=== PATIENT | male | born 1960 | race Caucasian/White ===

== ENCOUNTER 2020-02-12 06:53 | Day surgery (SDC) | payer MEDICARE, SELFPAY ==
[2020-02-12] VITALS (14 sets, daily range): BP systolic 71–161; BP diastolic 43–93; PULSE 63–92; RESP 10–18; TEMP 36.4–36.9; O2SAT 96–100; BMI 30.2
--- NOTE | 2020-02-12 | SCC_ITS ---
Procedure Done: Cystoscopy, left retrograde ureteropyelogram, left ureteroscopy with manual lithotripsy of stone, stent 10.9 seconds of fluoroscopic guidance, for a cumulative dose of 5.56 mGy, was provided to Dr. Pinon by the radiology department. C-arm images of the abdomen were saved for the patient's permanent record. [facility]
--- NOTE | 2020-02-12 07:13 | CT_ITS ---
WS: [id number] CT scan of the abdomen and pelvis without Oral and IV contrast. Additional two-dimensional coronal an d sagittal reconstruction was performed. 02/12/2020 Clinical Data: L back/groin pain Comparison: None. DLP: 1995.[address] scans at [facility] use at least one of these dose optimization techniques: automat ed exposure control; mA and/or kV adjustment per patient size (includes targeted exams where dose is matched to clinical indication); or iterative reconstruction. Findings: The lower lungs show no nodules, masses or effusions. There is coronary artery calcification. The gallbladder, spleen, adrenal glands and pancreas are normal. There is hepatomegaly but no liver c yst, mass or dilated intrahepatic ducts.. The right kidney shows no cysts, masses, hydronephrosis or renal calculi. The left kidney demonstrate s mild pyelocaliectasis with a 2.8 cm cyst inferiorly. The kidneys are joined across the midline infe riorly. No left renal mass or calculus can be seen.. The abdominal aorta is normal in size with calcification in the wall. No appendicitis or diverticulitis is seen. The stomach, small bowel and colon show no abnormalities. No abscess, adenopathy, ascites, mass, obstruction or free air is seen. The bladder is is dilated and there is a 0.6 cm left UVJ calculus. There are bilateral fat-containing inguinal hernias.. The bones of the lower thorax, lumbar spine, pelvis, and hips show osteoarthritis of the lower thorac ic and the lower lumbar vertebral bodies.. CT/CT kidney stone [id number] Impression: 1. 0.6 cm left UVJ calculus. 2. Horseshoe kidney. 3. Hepatomegaly
--- NOTE | 2020-02-12 07:14 | ED_ITS ---
HPI - Back Pain/Injury General: Chief Complaint: Back Pain/Injury Stated Complaint: LOWER BACK , GROIN PAIN Time Seen by Provider: 02/12/20 07:05 Source: patient Mode of arrival: ambulatory Limitations: no limitations History of Present Illness: HPI Narrative: Patient is a 59-year-old male who presents to ED today with complaints of left-sided back pain and groin pain that began fairly abruptly around midnight last night. Patient states pain seems to start in his groin and radiate around into his back. He states he cannot sit still due to his discomfort. He is having nausea and vomiting secondary to the pain. Patient states he has never had anything like this previously. Denies history of back pains. He is not having any difficulty with urination, dysuria, hematuria. He has not noticed any masses or bulges in his groin. He denies any redness, swelling, pallor, or coolness to his lower extremities. MD elicited complaint: back pain Onset (ago): hour(s) Timing: constant Severity: severe Similar Symptoms Previously: No Location: left lower back Radiation: groin Relieving factors: none Associated symptoms: Reports nausea and vomiting; Deny chills, change in bowel habits, dysuria, fatigue, fever(s), hematuria, syncope or urinary urgency Review of Systems Const: Denies: fever, chills, body aches, change in appetite, change in weight or fatigue Card: Denies: chest pain, palpitations, irregular heart rhythm, edema, lightheadedness, syncope or pre-syncope Resp: Denies: shortness of breath, productive cough or chest congestion GI: Reports: nausea and vomiting; Denies: vomiting blood, heartburn/indigestion, change in bowel habits, painful bowel movements, rectal swelling, change in stool character, blood in stool, white/light colored stool or fatty stool : Reports: other (L groin pain ); Denies: flank pain, difficulty urinating, painful urination, urinary frequency, urinary urgency, urinary hesitancy, blood in urine, genital pain, genital lesion, testicular mass or scrotal swelling Musc: Reports: back pain; Denies: neck pain, extremity pain, extremity swelling, joint pain or joint swelling Skin/Breast: Denies: rash Neuro: Denies: headache, numbness in extremities, weakness in extremities or changes in sensation PFSH ED PFSH: Social History Smoking and tobacco status: never smoked Physical Exam Const: COMMON NORMALS: average body habitus, oriented x3, no limitations, healthy appearing, alert and well nourished GENERAL APPEARANCE: in distress (secondary to pain) OTHER: pt pacing around the room-reports he cannot sit still secondary to pain HENMT: COMMON NORMALS: normocephalic and head/scalp atraumatic HEAD & SCALP: normocephalic and atraumatic Resp: COMMON NORMALS: normal respiratory effort and clear to auscultation bilaterally AUSCULTATION: clear to auscultation bilaterally Cardio: COMMON NORMALS: regular rate and regular rhythm RATE: regular rate RHYTHM: regular rhythm GI: COMMON NORMALS: normal to inspection, nondistended, normoactive bowel sounds, soft to palpation, no hepatosplenomegaly and no masses PALPATION: Yes soft, Yes tender (superior to L inguinal) and Yes no hepatosplenomegaly : COMMON NORMALS: Yes no CVA tenderness BLADDER/KIDNEY EXAM: Yes no CVA tenderness Back/Pelvis: COMMON NORMALS: no CVA tenderness OTHER: TTP L lower back radiating around into groin Extremity: COMMON NORMALS: normal to inspection Neuro: COMMON NORMALS: oriented x3 SENSORIUM/ORIENTATION: Yes alert Skin: COMMON NORMALS: no rashes or lesions noted GENERAL SKIN EXAM: no rashes or lesions noted Course Consultations: Consultation #1: Dr. Pinon-recommends we send pt to outpt services and he will intervene from there. States he will place orders for patient. Vital Signs: Vital signs: Vital Signs Temperature 97.5 F L 02/12/20 06:58 Pulse Rate 92 02/12/20 06:58 Respiratory Rate 16 02/12/20 10:03 Blood Pressure 161/93 02/12/20 06:58 Pulse Oximetry 100 02/12/20 10:03 MDM - Back Pain/Injury MDM Narrative: Medical decision making narrative: Patient presents here with a 6 mm stone in his left UVJ. Patient has some mild renal dilatation. He has a WBC count of 17.6 however urine is not infected. I cannot get patient's pain u nder control even with morphine, fentanyl, toradol, and dilaudid. Spoke to Dr. Pinon and we will admit patient to outpatient services where he will intervene due to uncontrollable pain. Lab Data: Labs: Lab Results 02/12/20 02/12/20 02/12/20 Range/Units 07:13 07:13 09:22 WBC 17.8 H (4.0-10.0) 10^3/ uL RBC 5.18 (4.1-5.3) 10^6/u L Hgb 14.8 (11.7-16.6) g/dL Hct 44.7 (42.0-52.0) % MCV 86.3 (80-94) fL MCH 28.6 (28.0-34.0) pg MCHC 33.1 (30.0-36.0) g/dL RDW 13.1 (12.1-15.1) % Plt Count 422 H (130-400) 10^3/c mm MPV 9.5 (7.4-10.4) fL Neut % (Auto) 79.4 % Lymph % (Auto) 12.9 % [place] % (Auto) 4.7 % Eos % (Auto) 1.9 % Baso % (Auto) 0.7 % Neut # (Auto) 14.2 H (1.8-7.7) 10^3/u L Lymph # (Auto) 2.3 (0.8-4.8) 10^3/u L [place] # (Auto) 0.8 (0.2-0.9) 10^3/u L Eos # (Auto) 0.3 (0.0-0.8) 10^3/u L Baso # (Auto) 0.1 (0.0-0.1) 10^3/u L Nucleated RBC % (a uto) 0 % Nucleated RBCs # 0.0 /100WBC Sodium 137 (136-145) mmol/L Potassium 4.6 (3.5-5.1) mmol/L Chloride 102 (98-107) mmol/L Carbon Dioxide 22 (22-29) mmol/L Anion Gap 17.6 (5-19) BUN 23 (8-23) mg/dL Creatinine 1.6 H (0.7-1.2) mg/dL GFR Calculation 44.2 L (90-130) mL/min Glucose 331 H (65-115) mg/dL Calculated Osmolal ity 294 (285-295) mOsm/k g Calcium 9.6 (8.5-10.5) mg/dL Total Bilirubin 0.4 (0.15-1.2) mg/dL AST 18 (0-40) U/L ALT 24 (0-41) U/L Alkaline Phosphata se 146 H (40-130) IU/L Total Protein 7.7 (6.6-8.7) g/dL Albumin 4.8 (3.5-5.2) g/dL Globulin 2.9 (1.3-4.6) g/dL Urine Color Yellow (Yellow) Urine Appearance Clear (CLEAR) Urine pH 5 (5-7) Ur Specific Gravit y 1.015 (1.005-1.030) Urine Protein Neg (Negative) Urine Glucose (UA) 4+ H (Normal) Urine Ketones Negative (Negative) Urine Blood 2+ H (Negative) Urine Nitrate Negative (Negative) Urine Bilirubin Neg (NEGATIVE) Urine Urobilinogen Norm (Negative) mg/dL Ur Leukocyte [place] ase Negative (Negative) Urine RBC 5-10 H (0-2) /hpf Urine WBC None (0-5) /hpf Ur Squamous Epith Cells None (0-5) Urine Bacteria None (NONE) Imaging Data^: CT Abd/Pel: Radiologist's impression: [place] [address] CT Scan Report Signed Patient: Garth Henriquez Unit #: [id number] : 1960 Age/Sex: 59 / M ADM Date: 02/12/20 Loc: ER Room/Bed: Attending Dr: Ordering Provider/Ordering MD: Daiana Yu Date of Service: 02/12/20 Procedure(s): CT kidney stone [id number] Accession Number(s): [id number] Report Number: [id number] WS: [id number] CT scan of the abdomen and pelvis without Oral and IV contrast. Additional two- dimensional coronal and sagittal reconstruction was performed. 02/12/2020 Clinical Data: L back/groin pain Comparison: None. DLP: 1994. mGy.cm All CT scans at [facility] use at least one of these dose optimization techniques: automated exposure control; mA and/or kV adjustment per patient size (includes targeted exams where dose is matched to clinical indication); or iterative reconstruction. Findings: The lower lungs show no nodules, masses or effusions. There is coronary artery calcification. The gallbladder, spleen, adrenal glands and pancreas are normal. There is hepatomegaly but no liver cyst, mass or dilated intrahepatic ducts.. The right kidney shows no cysts, masses, hydronephrosis or renal calculi. The left kidney demonstrates mild pyelocaliectasis with a 2.8 cm cyst inferiorly. The kidneys are joined across the midline inferiorly. No left renal mass or calculus can be seen.. The abdominal aorta is normal in size with calcification in the wall. No appendicitis or diverticulitis is seen. The stomach, small bowel and colon show no abnormalities. No abscess, adenopathy, ascites, mass, obstruction or free air is seen. The bladder is is dilated and there is a 0.6 cm left UVJ calculus. There are bilateral fat- containing inguinal hernias.. The bones of the lower thorax, lumbar spine, pelvis, and hips show osteoarthritis of the lower thoracic and the lower lumbar vertebral bodies.. CT/CT kidney stone [id number] Impression: 1. 0.6 cm left UVJ calculus. 2. Horseshoe kidney. 3. Hepatomegaly Dictated By: Gudelia Watkins MD Signed By: Gudelia Watkins MD Signed Date/Time: 02/12/20838 DD/ 8 Discharge Plan Discharge Patient Disposition: Admitted As Inpatient Clinical Impression: Calculus of ureterovesical junction (UVJ), Uncontrolled pain Condition: Stable Referrals: Tejas Wu DO [Family Provider] - Coding Level of Care Code ED Spring Forger for Chg Fwd Exam Comprehensive
[2020-02-12 07:18] LABS: Basophils # 0.1 10^3/uL (0.0-0.1); Basophils % 0.7 %; Eosinophils # 0.3 10^3/uL (0.0-0.8); Eosinophils % 1.9 %; Hematocrit 44.7 % (42.0-52.0); Hemoglobin 14.8 g/dL (11.7-16.6); Lymphocytes # 2.3 10^3/uL (0.8-4.8); Lymphocytes % 12.9 %; Mean Corpuscular HGB Conc 33.1 g/dL (30.0-36.0); Mean Corpuscular Hemoglobin 28.6 pg (28.0-34.0); Mean Corpuscular Volume 86.3 fL (80-94); Mean Platelet Volume 9.5 fL (7.4-10.4); Monocytes # 0.8 10^3/uL (0.2-0.9); Monocytes % 4.7 %; Neutrophils # 14.2 10^3/uL (1.8-7.7); Neutrophils % 79.4 %; Nucleated Red Blood Cells % 0 %; Platelet Count 422 10^3/cmm (130-400); Red Blood Count 5.18 10^6/uL (4.1-5.3); Red Cell Distribution Width 13.1 % (12.1-15.1); White Blood Count 17.8 10^3/uL (4.0-10.0)
[2020-02-12] MEDS: morphine 4 mg/mL SDV 1 mL IVP (07:18)
[2020-02-12] MEDS: ondansetron 2 mg/ML SDV 2 mL 4 MG IVP (07:19)
[2020-02-12] MEDS: sodium chloride 0.9% 1,000 ML 999 ML IV (07:19)
--- NOTE | 2020-02-12 07:20 | PC.NURSE ---
Patient to CT via stretcher
[2020-02-12] MEDS: ketorolac 30 mg/mL INJ IVP (07:33)
[2020-02-12 07:34] LABS: Alanine Aminotransferase 24 U/L (0-41); Albumin Level 4.8 g/dL (3.5-5.2); Alkaline Phosphatase 146 IU/L (40-130); Anion Gap 17.6 (5-19); Aspartate Amino Transferase 18 U/L (0-40); Blood Urea Nitrogen 23 mg/dL (8-23); Calcium 9.6 mg/dL (8.5-10.5); Carbon Dioxide 22 mmol/L (22-29); Chloride 102 mmol/L (98-107); Globulin 2.9 g/dL (1.3-4.6); Glomerular Filtration Rate 44.2 mL/min (90-130); Glucose 331 mg/dL (65-115); Osmolality Calculated 294 mOsm/kg (285-295); Potassium 4.6 mmol/L (3.5-5.1); Sodium 137 mmol/L (136-145); Total Bilirubin 0.4 mg/dL (0.15-1.2); Total Protein 7.7 g/dL (6.6-8.7)
--- NOTE | 2020-02-12 07:36 | PC.NURSE ---
Patient back from CT. Patient unable to lay flat for scan.
--- NOTE | 2020-02-12 07:38 | PC.NURSE ---
Call light activated minutes after administration of toradol. Patient concerned that it is not helping. Patient advised to allow time for medication to work.
[2020-02-12] MEDS: fentaNYL 50 mcg/mL INJ 2mL 75 MCG IVP (07:48)
--- NOTE | 2020-02-12 08:10 | PC.NURSE ---
Patient has return from CT after successfully receiving the scan
[2020-02-12] MEDS: fentaNYL 50 mcg/mL INJ 2mL IVP (09:00)
[2020-02-12 09:43] LABS: Add Urine Microscopic? YES; Bilirubin Urine Neg (NEGATIVE); Blood Urine 2+ (Negative); Glucose Urine UA 4+ (Normal); Ketones Urine Negative (Negative); Leukocyte Esterase Urine Negative (Negative); Nitrate Urine Negative (Negative); Protein Urine Neg (Negative); Specific Gravity, Urine 1.015 (1.005-1.030); Urine Appearance Clear (CLEAR); Urine Color Yellow (Yellow); Urobilinogen Urine Norm (Negative); pH Urine 5 (5-7)
[2020-02-12 09:44] LABS: Add Urine Culture? No
[2020-02-12] MEDS: HYDROmorphone 1 mg/mL INJ 1 mL 0.5 MG IVP (10:03)
[2020-02-12 11:03] LABS: Lactate (Lactic Acid level) 1.5 mmol/L (0.5-2.2)
--- NOTE | 2020-02-12 11:04 | P.HP_ITS ---
Providers/Chief Complaint Chief Complaint: LOWER BACK , GROIN PAIN History of Present Illness Garth Henriquez is a 59 year old male who presented to the emergency department today with renal colicky symptoms on the left beginning last night abruptly at about midnight. Denies fever or chills. Did have severe nausea and vomiting. No concurrent lower urinary tract symptoms. Pain was described as very severe and difficult to control despite a significant amount of narcotics in the emergency department. No prior stone Work-up: UA positive for microscopic hematuria but no white cells. White count was 17,000. Vital signs were stable. CT scan showed an obstructing stone 6 mm in his left distal ureter near the UVJ. Coincidental finding of horseshoe kidney. Based on the size and location of the stone it was felt that he could be potentially managed as outpatient but his pain cannot be adequately controlled. He was offered the option for further conservative management on an inpatient basis or intervention with endoscopy regarding the stone and chose the latter. Review of Systems Const: Denies: fever, chills, body aches or fatigue Eyes: Denies: change in vision or blurry vision ENMT: Denies: throat pain or painful swallowing Card: Denies: chest pain or palpitations Resp: Denies: shortness of breath, productive cough or non-productive cough GI: Reports: abdominal pain and vomiting; Denies: vomiting blood : Reports: flank pain and painful urination Musc: Reports: joint pain Skin/Breast: Denies: rash or redness Neuro: Denies: confusion or behavioral changes Psych: Denies: anxiety or depression Endo: Denies: excessive urination Chris/Lymph: Denies: easy bruising or easy bleeding All/Imm: Reports: hives; Denies: acute wheezing Medications/Allergies Home Medications Medication Instructions Recorded Confirmed Last Taken Type atorvastatin 40 mg PO DAILY 02/12/20 02/12/20 02/11/20 History glipizide 10 mg PO DAILY 02/12/20 02/12/20 02/11/20 History lisinopril 5 mg PO DAILY 02/12/20 02/12/20 02/11/20 History metformin 1,000 mg PO BID 02/12/20 02/12/20 02/11/20 History Allergies Allergy/AdvReac Type Severity Reaction Status Date / Time adhesive AdvReac Unknown Verified 02/12/20 07:26 PFSH PFSH: Medical History Diabetes mellitus Hypertension Surgical History H/O neck surgery H/O repair of rotator cuff History of ankle surgery History of surgery on arm Social History Smoking and tobacco status: never smoked Vital Signs Vitals Signs: Last Vital Signs Temp 97.5 F L 02/12/20 06:58 Pulse 75 02/12/20 10:54 Resp 16 02/12/20 10:54 BP 126/75 02/12/20 10:54 Pulse Ox 98 02/12/20 10:54 Weight: Weight last 48 hrs Weight 211 lb 2.806 oz Physical Exam Const: COMMON NORMALS: oriented x3 EXAM LIMITATIONS: no altered mental status and no behavioral limitations GENERAL APPEARANCE: well kempt and well developed ORIENTATION/CONSCIOUSNESS: not confused HENMT: HEAD & SCALP: normocephalic and atraumatic Eye: COMMON NORMALS: no scleral icterus CONJUNCTIVA: Yes conjunctivae normal Neck/C-Spine: GENERAL: Yes normal visual inspection Resp: COMMON NORMALS: normal respiratory effort EFFORT & INSPECTION: No labored and No actively coughing : OTHER: Normal genitourinary exam Extremity: COMMON NORMALS: no clubbing, cyanosis or edema Neuro: COMMON NORMALS: no focal motor deficits SENSORIUM/ORIENTATION: Yes alert Psych: COMMON NORMALS: mental status grossly normal, thought process normal and cooperative APPEARANCE: Yes grossly normal and Yes well kempt ATTITUDE: Yes calm and Yes engaged THOUGHT PROCESS: normal thought process Skin: COMMON NORMALS: no jaundice Data Micro: Micro: Microbiology 02/12/20 10:30 Blood Culture - Pr eliminary Blood SPECIMEN [facility] RANJAN 02/12/20 10:35 Blood Culture - Pr eliminary Blood SPECIMEN [facility] RANJAN A&P Assessment and plan (1) Calculus of ureterovesical junction (UVJ): 6 mm left UVJ stone with obstructive changes and refractory symptoms. Elected intervention. Informed consent obtained for cystoscopy, LEFT: Retrograde, ureteroscopy, laser, stent I explained the procedure in details with benefits risk potential complications alternatives explained. Status: Acute Code(s): N20.1 - Calculus of ureter (2) Uncontrolled pain: Status: Acute Code(s): R52 - Pain, unspecified Coding Level of Care Code [facility] for g Fwd Exam Comprehensive Diagnoses Calculus of ureterovesical junction (UVJ) N20.1 Uncontrolled pain R52
--- NOTE | 2020-02-12 11:38 | P.ANESASSM_ITS ---
Pre-Anesthetic Assessment Pre-Anesthetic Assessment: Height/Weight: Height 1.78 m Weight 95.788 kg Temp Pulse Resp BP Pulse Ox 98.2 F 86 18 108/57 97 02/12/20 11:17 02/12/20 11:17 02/12/20 11:17 02/12/20 11:17 02/12/20 11:17 Preop Diagnosis: left ureteral stone Proposed Procedure: Operation Date: 02/12/20 14:35 Proposed Procedures p Cystoscopy(Not Applicable) - Saqib Pinon MD s Retrograde Pyelogram(Left) - Saqib Pinon MD s Flexible Ureteroscopy(Not Applicable) - Saqib Pinon MD s Laser Lithotripsy(Left) - MD whit Cortez Ureteral Stent Placement(Left) - Saqib Pinon MD Last intake: Intake Last Liquid Date 02/12/20 Last Liquid Time 02:00 Last Solid Date 02/11/20 Last Solid Time 19:00 Exam: Pre-Anes Outpt Exam: alert, oriented x 3, clear to auscultation bilaterally and regular rate & rhythm Airway: Submandibular: WNL Cervical ROM: Other MP: 2 Additional comments: very poor dention CV/HEM: CV/HEM: HTN Comments: rx'd x 10y 2 blocks/2FOS without angina/PERDOMO stress test'05 negative : Comments: left ureteral stone Metabolic: Metabolic: DM Comments: dx'd 18y, does not follow Musc/skel: Musc/skel: Lower Back Pain Neuropsych: Neuropsych: ULRICH Anesthetic Plan: ASA status: 3 Anesthesia: General PFSH Anesthesia PFSH: Social History Smoking and tobacco status: never smoked Data Anesthesia CBC & Chem 7: 02/12/20 07:13 02/12/20 07:13 Other Labs: Laboratory Results - last 48 hr 02/12/20 02/12/20 02/12/20 07:13 07:13 09:22 WBC 17.8 H RBC 5.18 Hgb 14.8 Hct 44.7 MCV 86.3 MCH 28.6 MCHC 33.1 RDW 13.1 Plt Count 422 H MPV 9.5 Neut % (Auto) 79.4 Lymph % (Auto) 12.9 [place] % (Auto) 4.7 Eos % (Auto) 1.9 Baso % (Auto) 0.7 Neut # (Auto) 14.2 H Lymph # (Auto) 2.3 [place] # (Auto) 0.8 Eos # (Auto) 0.3 Baso # (Auto) 0.1 Nucleated RBC % (auto) 0 Nucleated RBCs # 0.0 Sodium 137 Potassium 4.6 Chloride 102 Carbon Dioxide 22 Anion Gap 17.6 BUN 23 Creatinine 1.6 H GFR Calculation 44.2 L Glucose 331 H Calculated Osmolality 294 Lactate Calcium 9.6 Total Bilirubin 0.4 AST 18 ALT 24 Alkaline Phosphatase 146 H Total Protein 7.7 Albumin 4.8 Globulin 2.9 Urine Color Yellow Urine Appearance Clear Urine pH 5 Ur Specific [place] 1.015 Urine Protein Neg Urine Glucose (UA) 4+ H Urine Ketones Negative Urine Blood 2+ H Urine Nitrate Negative Urine Bilirubin Neg Urine Urobilinogen Norm Ur Leukocyte Esterase Negative Urine RBC 5-10 H Urine WBC None Ur Squamous Epith Cells None Urine Bacteria None 02/12/20 10:35 WBC RBC Hgb Hct MCV MCH MCHC RDW Plt Count MPV Neut % (Auto) Lymph % (Auto) [place] % (Auto) Eos % (Auto) Baso % (Auto) Neut # (Auto) Lymph # (Auto) [place] # (Auto) Eos # (Auto) Baso # (Auto) Nucleated RBC % (auto) Nucleated RBCs # Sodium Potassium Chloride Carbon Dioxide Anion Gap BUN Creatinine GFR Calculation Glucose Calculated Osmolality Lactate 1.5 Calcium Total Bilirubin AST ALT Alkaline Phosphatase Total Protein Albumin Globulin Urine Color Urine Appearance Urine pH Ur Specific [place] Urine Protein Urine Glucose (UA) Urine Ketones Urine Blood Urine Nitrate Urine Bilirubin Urine Urobilinogen Ur Leukocyte Esterase Urine RBC Urine WBC Ur Squamous Epith Cells Urine Bacteria Micro: Microbiology 02/12/20 10:30 Blood Culture - Preliminary Blood SPECIMEN COLLECTED 02/12/20 10:35 Blood Culture - Preliminary Blood SPECIMEN COLLECTED Cardiac Studies: No Data to Display
[2020-02-12] MEDS: sodium chloride 0.9% 1,000 ML 30 ML IV (11:58)
--- NOTE | 2020-02-12 12:01 | SC_ITS ---
WS: [id number] C-arm FL for Urology REASON FOR EXAM: cysto stent placement FINDINGS: C-arm imaging for placement of a catheter on the left side. A catheter is noted in the giacomo on of the left kidney the alignment poorly visualized due to the projections but appears to be in the left kidney. SC/C-arm FL for Urology IMPRESSION: Placement of left ureteral catheter utilizing C-arm imaging.
--- NOTE | 2020-02-12 12:54 | PM.OP ---
Operative Report Date of procedure: February 12, 2020 Pre-op Diagnosis: left ureteral stone Post-op diagnosis: same Procedure Done: Cystoscopy, left retrograde ureteropyelogram, left ureteroscopy with manual lithotripsy of stone, stent Implants: 6 Cambodian by 28 cm double-pigtail stent left indwelling at the completion of the procedure Specimens removed/disposition: Stone fragments Pathology: other Pathology: Stone fragment Surgeon: Kathrin Anesthesia: General Estimated blood loss: Minimal Urine output: Not measured Complications: None Findings: Soft stone located in the left distal ureter. Required manual fragmentation and then the fragments removed with grasping forceps. Indwelling stent left at the completion of the procedure Condition: stable Disposition: PACU Brief History: Mr. Henriquez is a very pleasant 59-year-old white male who I evaluated for the first time today at the request of the emergency department for refractory left renal colic secondary to an obstructing left distal ureteral stone with no evidence of infection. Because of the refractory nature of his pain he was offered inpatient conservative management versus intervention and after detailed discussion he elected the latter. Procedure: After urgent evaluation examination and obtaining of informed consent he was taken to the operating suite on 02/12/2020 where general anesthesia was administered without difficulty after appropriate timeout was performed, SCDs confirmed to be functioning, preoperative antibiotics administered, beta-yancy protocol confirmed. Prepped and draped in usual sterile fashion in dorsolithotomy position pain careful attention to avoiding pressure points. 21 Cambodian cystoscope with 30 degree lens was introduced into the Riether meatus and advanced into the bladder videoscopy. There was a large caliber easily bypassable stricture in the bulbar urethra. Prostate showed trilobar enlargement. Mild trabeculation. No stones were in the bladder. There appeared to be some edema of the left intramural tunnel. An 8 Cambodian cone-tip catheter was intubated into the left ureteral orifice for a retrograde ureteropyelogram that demonstrated normal very distal ureter, filling defect consistent with a stone seen on CT scan just proximal to that, and a moderately dilated ureter proximal to the stone. Flexible tip guidewire was easily advanced up the left ureter bypassing the stone in the left distal ureter was then dilated with a 15 Cambodian 4 cm balloon with maximum inflation pressure of 4 lizzy. No waist. The wire was secured to the drapes as a safety wire and a 7.5 Cambodian offset semirigid ureteroscope was easily advanced up the left ureter where the stone was encountered in the expected position. It was borderline as far as being able remove intact. It was noticed that there was some smaller pieces next to it so it was attempted to be and successfully fragmented with the grasping forceps into smaller pieces that were then removed 1 at a time. On final inspection there were no fragments remaining. There was some distal ureteral edema and for that reason it was decided to leave a temporarily indwelling stent. The cystoscope was backloaded over the guidewire and a 6 Cambodian by 28 cm double-pigtail stent without string was easily advanced over the guidewire through the cystoscope into appropriate position as confirmed via fluoroscopy and cystoscopy. The bladder was drained. The stone fragments were sent for pathologic evaluation. Tolerated the procedure well without complications and was awakened in the operating room and returned to the recovery in stable condition. PLANS: 1. Discharge from outpatient surgery 2. Follow-up later this week with a cystoscopy and stent removal in clinic.
[2020-02-15 22:26] LABS: Stone Source URETERAL STONE
== END 2020-02-12 14:10 | disposition home or self-care (01) ==
LOC: ER 10:48 → OPS 10:51
PROVIDERS: Emergency Provider Physician Assistant; Family Provider Internal Medicine; Visit Provider Urology
PROC: 0TJB8ZZ Inspection of Bladder, Via Natural or Artificial Opening Endoscopic (ICD-10-PCS; CPT 52000; principal; 2020-02-12 12:15)
PROC: (CPT 74420; 2020-02-12 12:15)
PROC: 0TJ98ZZ Inspection of Ureter, Via Natural or Artificial Opening Endoscopic (ICD-10-PCS; CPT 52351; 2020-02-12 12:15)
PROC: (CPT 50605; 2020-02-12 12:15)
DX: N20.1 Calculus of ureter (principal); I10 Essential (primary) hypertension; E11.9 Type 2 diabetes mellitus without complications; Z82.49 Family history of ischemic heart disease and other diseases of the circulatory system; Z83.3 Family history of diabetes mellitus
CPT/HCPCS: 52356; 12345; 36415; 74176; 76000; 80053; 81001; 82365; 83605; 85025; 87040; 88300; 96375; 99282; C1725; C2625; J1170; J1885; J2270; J2370; J2405; J2704; J2710; J3010; J3490; J7030

== ENCOUNTER → 2020-02-16 09:58 | Outpatient (BNVA) | payer MEDICARE, SELFPAY | PROVIDERS: Family Provider Internal Medicine; PCP Internal Medicine; Visit Provider Urology | DX: Z98.890 Other specified postprocedural states (principal); Z96.0 Presence of urogenital implants; N52.1 Erectile dysfunction due to diseases classified elsewhere | CPT/HCPCS: 81001 ==

== ENCOUNTER 2020-06-29 09:27 | Emergency (ER) | payer MEDICARE, SELFPAY ==
[2020-06-29 09:28] VITALS: BP 194/99; PULSE 76; RESP 18; TEMP 36.6; O2SAT 97; BMI 30.7
--- NOTE | 2020-06-29 09:32 | XRR_ITS ---
PROCEDURE INFORMATION: Exam: XR Abdomen, 1 View Exam date and time: 06/29/2020 9:49 AM Age: 60 years old Clinical indication: Abdominal pain; Flank; Left; Additional info: Nephrolithiasis TECHNIQUE: Imaging protocol: XR of the abdomen. Views: Frontal supine view of the abdomen. 1 View. COMPARISON: Abdominal/pelvic CT 06/29/20 FINDINGS: Gastrointestinal tract: Prominent stool. Vasculature: Vascular calcification. Bones/joints: Degenerative change. Other findings: CT detected urolithiasis is poorly visualized on radiography. XR/XR KUB [id number] IMPRESSION: Prominent stool.
--- NOTE | 2020-06-29 09:38 | ED_ITS ---
HPI - Male Genitourinary General: Chief complaint: Urogenital-Male Stated complaint: poss kidney stone Time Seen by Provider: 06/29/20 09:32 History of Present Illness: HPI Narrative: 60-year-old male patient presents to the emergency department accompanied by his spouse, reports sudden onset of left lower abdominal pain with radiation to the left testicles that started this morning approximately 1.5 hours ago. He reports previous kidney stone on the right side, reports pain he is experiencing is exactly like previous kidney stone pain. History of right sided lithotripsy spring 2019, Dr. Pinon. He reports nausea, reports normal void this a.m. Denies hematuria. Complaint: testicle pain Onset (ago): hour(s) (1.5) Duration: constant Location: left testicle, left inguinal region and left flank Severity: moderate Severity scale (1-10): 8 Quality: aching, sharp and stabbing Relieving factors: rest Exacerbating factors: palpation and movement Associated symptoms: Reports nausea; Deny discharge, dysuria, fevers/chills, hematuria, urinary incontinence, urinary retention or vomiting Review of Systems General: Reports: 10 or more systems reviewed and unremarkable except in HPI and below Const: Denies: fever(s), chills or diaphoresis Eyes: Denies: blurry vision or eye redness ENMT: Denies: throat pain, dental pain or disequilibrium Card: Denies: chest pain, palpitations or irregular heart rhythm Resp: Denies: dyspnea, productive cough, non-productive cough or wheezing GI: Reports: abdominal pain and nausea; Denies: vomiting or fecal incontinence : Denies: dysuria, urinary incontinence or hematuria Musc: Denies: back pain Skin/Breast: Denies: rash or pruritus Neuro: Denies: headache(s), weakness in extremities or behavioral changes Chris/Lymph: Denies: easy bruising PFSH ED PFSH: Medical History (Updated 06/29/20 @ 12:09 by FIONA Chang) Dental caries Diabetes mellitus Erectile dysfunction due to diseases classified elsewhere Hypertension Urolithiasis Surgical History H/O neck surgery H/O repair of rotator cuff History of ankle surgery History of surgery on arm Social History Smoking and tobacco status: light tobacco smoker smokeless tobacco Alcohol intake: unknown Adopted: No Caregiver/support person: No Lives independently: No Household members: spouse Marital status: Current occupational status: disabled History of recent travel: No Current gender identity: Male Physical Exam Const: COMMON NORMALS: no acute distress, patient oriented x3, healthy appearing and alert GENERAL APPEARANCE: cooperative and well hydrated Eye: COMMON NORMALS: Equal, round and reactive pupils present and EOMs intact bilaterally GENERAL EYE: appearance normal, both eyes and all related structures PUPIL: Yes Equal, round and reactive pupils present Neck/C-Spine: COMMON NORMALS: full ROM and no lymphadenopathy GENERAL: Yes normal visual inspection and Yes trachea midline CERVICAL SPINE: Yes cervical ROM normal Lymph: LYMPHATIC: no lymphadenopathy noted Chest: COMMONS NORMALS: normal inspection of the chest Resp: COMMON NORMALS: normal respiratory effort and clear to auscultation bilaterally AUSCULTATION: clear to auscultation bilaterally Cardio: COMMON NORMALS: regular rhythm, S1 normal heart sound present and S2 normal heart sound present RHYTHM: regular rhythm HEART SOUNDS: S1 normal heart sound present and S2 normal heart sound present GI: COMMON NORMALS: Soft to palpation INSPECTION: Yes normal to inspection and Yes other (LLQ pain to palpation) AUSCULTATION: Yes normoactive bowel sounds PALPATION: Yes Soft to palpation and Yes Firmness to palpation present (GI) : BLADDER/KIDNEY EXAM: Yes CVA tenderness on the left MALE GROIN/PERINEUM EXAM: No inguinal lymphadenopathy and Yes tenderness Back/Pelvis: COMMON NORMALS: thoracic and lumbar spine normal to inspection GENERAL BACK: Yes CVA tenderness Extremity: COMMON NORMALS: normal to inspection and capillary refill normal Neuro: COMMON NORMALS: patient oriented x3 and no focal motor deficits SENSORIUM/ORIENTATION: Yes alert Psych: COMMON NORMALS: mental status grossly normal, Normal thought process present and cooperative ACTIVITY/MOTOR BEHAVIOR: Yes appropriate eye contact THOUGHT PROCESS: Normal thought process present Skin: COMMON NORMALS: no rashes or lesions noted and turgor normal GENERAL SKIN EXAM: no rashes or lesions noted and turgor normal Course ED course: Case discussed with Dr. Marino, order for hydrocodone completed and signed. Family and patient updated with serology findings as well as radiological findings. Confirm stone present, agrees to follow with Dr. Pinon next week. Vital Signs: Vital signs: Vital Signs Temperature 97.9 F 06/29/20 09:28 Pulse Rate 57 L 06/29/20 12:33 Respiratory Rate 18 06/29/20 12:33 Blood Pressure 135/67 06/29/20 12:33 Pulse Oximetry 98 06/29/20 12:33 MDM - Male Lab Data: Labs: Lab Results 06/29/20 06/29/20 Range/Units 09:43 09:43 WBC 8.4 (4.0-10.0) 10^3/ uL RBC 4.64 (4.1-5.3) 10^6/u L Hgb 13.5 (11.7-16.6) g/dL Hct 42.2 (42.0-52.0) % MCV 90.9 (80-94) fL MCH 29.1 (28.0-34.0) pg MCHC 32.0 (30.0-36.0) g/dL RDW 13.1 (12.1-15.1) % Plt Count 355 (130-400) 10^3/c mm MPV 9.5 (7.4-10.4) fL Neut % (Auto) 54.3 % Lymph % (Auto) 31.6 % Pender % (Auto) 6.7 % Eos % (Auto) 6.2 % Baso % (Auto) 1.1 % Neut # (Auto) 4.58 (1.8-7.7) 10^3/u L Lymph # (Auto) 2.7 (0.8-4.8) 10^3/u L Pender # (Auto) 0.6 (0.2-0.9) 10^3/u L Eos # (Auto) 0.5 (0.0-0.8) 10^3/u L Baso # (Auto) 0.1 (0.0-0.1) 10^3/u L Nucleated RBC % (a uto) 0 % Nucleated RBCs # 0.0 /100WBC Sodium 134 L (136-145) mmol/L Potassium 5.3 H (3.5-5.1) mmol/L Chloride 101 (98-107) mmol/L Carbon Dioxide 22 (22-29) mmol/L Anion Gap 16.3 (5-19) BUN 20 (8-23) mg/dL Creatinine 1.2 (0.7-1.2) mg/dL GFR Calculation 61.3 L (90-130) mL/min Glucose 256 H (65-115) mg/dL Calculated Osmolal ity 283 L (285-295) mOsm/k g Calcium 9.9 (8.5-10.5) mg/dL Total Bilirubin 0.3 (0.15-1.2) mg/dL AST 28 (0-40) U/L ALT 44 H (0-41) U/L Alkaline Phosphata se 109 (40-130) IU/L Total Protein 7.3 (6.6-8.7) g/dL Albumin 4.6 (3.5-5.2) g/dL Globulin 2.7 (1.3-4.6) g/dL Imaging Data: KUB: Radiologist's impression: [address] [address] XRay Report Signed Patient: Jordan Henriquez #: [id number] : 8Acct#:[id number] Age/Sex: 60 / MADM Date: 06/29/20 Loc: ERRoom/Bed: Attending Dr: Ordering Provider/Ordering MD: Gerardo Mock DO Date of Service: 06/29/20 Procedure(s): XR KUB 99137 Accession Number(s): [id number] Report Number: [id number] PROCEDURE INFORMATION: Exam: XR Abdomen, 1 View Exam date and time: 06/29/2020 9:49 AM Age: 60 years old Clinical indication: Abdominal pain; Flank; Left; Additional info: Nephrolithiasis TECHNIQUE: Imaging protocol: XR of the abdomen. Views: Frontal supine view of the abdomen. 1 View. COMPARISON: Abdominal/pelvic CT 06/29/20 FINDINGS: Gastrointestinal tract: Prominent stool. Vasculature: Vascular calcification. Bones/joints: Degenerative change. Other findings: CT detected urolithiasis is poorly visualized on radiography. XR/XR KUB [id number] IMPRESSION: Prominent stool. Dictated By:Navarro Granado MD Signed By:Navarro Granado MDSigned Date/Time:06/29/20 1129 DD/ 1127 CT Abd/Pel: Radiologist's impression: Patient: Jordan Henriquez #: [id number] : 8Acct#:[id number] Age/Sex: 60 / MADM Date: 06/29/20 Loc: ERRoom/Bed: Attending Dr: Ordering Provider/Ordering MD: Ana Mae Date of Service: 06/29/20 Procedure(s): CT kidney stone [id number] Accession Number(s): [id number] Report Number: [id number] PROCEDURE INFORMATION: Exam: CT Abdomen And Pelvis Without Contrast Exam date and time: 06/29/2020 10:29 AM Age: 60 years old Clinical indication: Abdominal pain; Flank; Left; Additional info: Left flank pain/stone TECHNIQUE: Imaging protocol: Computed tomography of the abdomen and pelvis without contrast. Radiation optimization: All CT scans at this facility use at least one of these dose optimization techniques: automated exposure control; mA and/or kV adjustment per patient size (includes targeted exams where dose is matched to clinical indication); or iterative reconstruction. COMPARISON: CT kidney stone [id number] 02/12/2020 8:05 AM RADIATION DOSE METRICS: Total DLP (mGy-cm): 1957.31 FINDINGS: Detailed evaluation of the abdominal and pelvic viscera is somewhat limited in the absence of intravenous contrast. Pleural space: No significant airspace or pleural disease. Coronary artery calcification. Liver: No focal hepatic mass. Gallbladder and bile ducts: Contracted gallbladder. No biliary ductal dilatation. Pancreas: No pancreatic mass or ductal dilatation. Spleen: Enlarged spleen measuring 13.2 cm in length. Adrenals: Subtle left adrenal nodularity. Kidneys and ureters: Mild left hydronephrosis in association with a 3 mm left ureteral calculus at the level of the pelvic inlet. Horseshoe kidney with subcentimeter calculi, including a 4 mm calculus in the left renal pelvis. Mild infiltration of perinephric fat. Stable 3.0 cm exophytic cyst arising from the lower pole of the left kidney. Stomach and bowel: Dilated fluid-filled stomach with mild gastric wall thickening. Mild duodenal dilatation. Prominent stool. Diverticula, without pericolonic inflammation. Appendix: Appendicoliths, without acute appendicitis. Intraperitoneal space: No free fluid. No significant free fluid. Vasculature: Vascular calcification. No abdominal aortic aneurysm. Lymph nodes: Subcentimeter lymph nodes. Bladder: Dilated bladder. Reproductive: Unremarkable as visualized. Bones/joints: Osteopenia, degenerative change, disc bulging, subcentimeter bone islands, and Schmorl's nodes. Soft tissues: Small fat containing umbilical and inguinal hernias. Calcification at the gluteal muscle attachment sites. CT/CT kidney stone [id number] IMPRESSION: 1. Mild left hydronephrosis in association with a 3 mm left ureteral calculus at the level of the pelvic inlet. 2. Horseshoe kidney with subcentimeter calculi, including a 4 mm calculus in the left renal pelvis. 3. Additional findings as described above. Radiation Dose CTDIVOL = (mGy): DLP = 1957.31 (mGy-cm) Dictated By:Navarro Granado MD Signed By:Navarro Granadoigned Date/Time:06/29/201127 Discharge Plan Discharge Patient Disposition: Home Clinical Impression: Kidney calculi, Hydronephrosis concurrent with and due to calculi of kidney and ureter Condition: Stable Prescriptions: New hydrocodone-acetaminophen 7.5-325 mg tablet 1 tab PO Q4H PRN (Reason: pain) Qty: 14 RF: 0 Zofran 4 mg tablet 4 mg PO QID PRN (Reason: nausea and vomiting) Qty: 10 RF: 0 Flomax 0.4 mg capsule 0.4 mg PO Q24H Qty: 10 RF: 0 No Action sildenafil 100 mg tablet 100 mg PO DAILY PRN (Reason: sexual activity) Qty: 20 RF: 12 atorvastatin 40 mg Tablet 40 mg PO DAILY RF: 0 glipizide 10 mg Tablet Extended Release 24hr 10 mg PO DAILY RF: 0 metformin 1,000 mg Tablet 1,000 mg PO BID RF: 0 lisinopril 5 mg Tablet 5 mg PO DAILY RF: 0 Discharge Orders: Discharge Order (Routine); Ordered 06/29/20 Ordered By: Ana Mae Referrals: Tejas Wu DO [Primary Care Provider] - Discharge Diet: Diabetic Discharge Activity: Limit activity as instructed Patient Instructions: Kidney Stones (ED), Renal Colic (ED) Activity Restrictions/Additional Instructions: Rest at home for the next 24 to 48 hours Start Flomax 0.4 mg daily, you have received your first dose here in the emerge ncy department, start 06/30/2020 You will need to strain your urine with every void Follow-up with Dr. Pinon next week If you develop nausea vomiting despite taking Zofran, fever chills, worsening ab dominal pain, please return to the emergency department for evaluation You will need to push oral fluids, make sure urine remains light yellow in color Discharge Date/Time: 06/29/20 12:34 Coding Level of Care Code ED Clearing Distribution Clerk for Chg Fwd Exam Comprehensive
[2020-06-29 09:45] VITALS: O2SAT 98
[2020-06-29 09:50] LABS: Basophils # 0.1 10^3/uL (0.0-0.1); Basophils % 1.1 %; Eosinophils # 0.5 10^3/uL (0.0-0.8); Eosinophils % 6.2 %; Hematocrit 42.2 % (42.0-52.0); Hemoglobin 13.5 g/dL (11.7-16.6); Lymphocytes # 2.7 10^3/uL (0.8-4.8); Lymphocytes % 31.6 %; Mean Corpuscular Hemoglobin 29.1 pg (28.0-34.0); Mean Corpuscular Volume 90.9 fL (80-94); Mean Platelet Volume 9.5 fL (7.4-10.4); Monocytes # 0.6 10^3/uL (0.2-0.9); Monocytes % 6.7 %; Neutrophils # 4.58 10^3/uL (1.8-7.7); Neutrophils % 54.3 %; Nucleated Red Blood Cells % 0 %; Platelet Count 355 10^3/cmm (130-400); Red Blood Count 4.64 10^6/uL (4.1-5.3); Red Cell Distribution Width 13.1 % (12.1-15.1); White Blood Count 8.4 10^3/uL (4.0-10.0)
[2020-06-29] MEDS: ondansetron 2 mg/ML SDV 2 mL 4 MG IVP (09:54)
[2020-06-29] MEDS: morphine 4 mg/mL SDV 1 mL 6 MG IVP (09:55)
[2020-06-29] MEDS: sodium chloride 0.9% 1,000 ML 999 ML IV (09:55)
[2020-06-29 10:07] LABS: Alanine Aminotransferase 44 U/L (0-41); Albumin Level 4.6 g/dL (3.5-5.2); Alkaline Phosphatase 109 IU/L (40-130); Anion Gap 16.3 (5-19); Aspartate Amino Transferase 28 U/L (0-40); Blood Urea Nitrogen 20 mg/dL (8-23); Calcium 9.9 mg/dL (8.5-10.5); Carbon Dioxide 22 mmol/L (22-29); Chloride 101 mmol/L (98-107); Globulin 2.7 g/dL (1.3-4.6); Glomerular Filtration Rate 61.3 mL/min (90-130); Glucose 256 mg/dL (65-115); Osmolality Calculated 283 mOsm/kg (285-295); Potassium 5.3 mmol/L (3.5-5.1); Sodium 134 mmol/L (136-145); Total Bilirubin 0.3 mg/dL (0.15-1.2); Total Protein 7.3 g/dL (6.6-8.7)
[2020-06-29 10:20] VITALS: RESP 18; O2SAT 94
[2020-06-29] MEDS: morphine 4 mg/mL SDV 1 mL IVP (10:20)
--- NOTE | 2020-06-29 10:25 | CTR_ITS ---
PROCEDURE INFORMATION: Exam: CT Abdomen And Pelvis Without Contrast Exam date and time: 06/29/2020 10:29 AM Age: 60 years old Clinical indication: Abdominal pain; Flank; Left; Additional info: Left flank pain/stone TECHNIQUE: Imaging protocol: Computed tomography of the abdomen and pelvis without contrast. Radiation optimization: All CT scans at this facility use at least one of these dose optimization techniques: automated exposure control; mA and/or kV adjustment per patient size (includes targeted exams where dose is matched to clinical indication); or iterative reconstruction. COMPARISON: CT kidney stone [id number] 02/12/2020 8:05 AM RADIATION DOSE METRICS: Total DLP (mGy-cm): 1957.31 FINDINGS: Detailed evaluation of the abdominal and pelvic viscera is somewhat limited in the absence of intravenous contrast. Pleural space: No significant airspace or pleural disease. Coronary artery calcification. Liver: No focal hepatic mass. Gallbladder and bile ducts: Contracted gallbladder. No biliary ductal dilatation. Pancreas: No pancreatic mass or ductal dilatation. Spleen: Enlarged spleen measuring 13.2 cm in length. Adrenals: Subtle left adrenal nodularity. Kidneys and ureters: Mild left hydronephrosis in association with a 3 mm left ureteral calculus at the level of the pelvic inlet. Horseshoe kidney with subcentimeter calculi, including a 4 mm calculus in the left renal pelvis. Mild infiltration of perinephric fat. Stable 3.0 cm exophytic cyst arising from the lower pole of the left kidney. Stomach and bowel: Dilated fluid-filled stomach with mild gastric wall thickening. Mild duodenal dilatation. Prominent stool. Diverticula, without pericolonic inflammation. Appendix: Appendicoliths, without acute appendicitis. Intraperitoneal space: No free fluid. No significant free fluid. Vasculature: Vascular calcification. No abdominal aortic aneurysm. Lymph nodes: Subcentimeter lymph nodes. Bladder: Dilated bladder. Reproductive: Unremarkable as visualized. Bones/joints: Osteopenia, degenerative change, disc bulging, subcentimeter bone islands, and Schmorl's nodes. Soft tissues: Small fat containing umbilical and inguinal hernias. Calcification at the gluteal muscle attachment sites. CT/CT kidney stone [id number] IMPRESSION: 1. Mild left hydronephrosis in association with a 3 mm left ureteral calculus at the level of the pelvic inlet. 2. Horseshoe kidney with subcentimeter calculi, including a 4 mm calculus in the left renal pelvis. 3. Additional findings as described above. Radiation Dose CTDIVOL = (mGy): DLP = 1957.31 (mGy-cm)
--- NOTE | 2020-06-29 10:40 | PC.NURSE ---
pt to ct by stretcher with tech
[2020-06-29 11:16] VITALS: BP 145/78; PULSE 63; O2SAT 96
[2020-06-29] MEDS: tamsulosin 0.4 mg Capsule PO (12:28)
[2020-06-29] MEDS: HYDROcodone-APAP 7.5-325 mg/15 mL UDC 7.5 ML PO (12:29)
[2020-06-29 12:33] VITALS: BP 135/67; PULSE 57; RESP 18; O2SAT 98
== END 2020-06-29 12:34 | disposition home or self-care (01) ==
PROVIDERS: Family Medicine; Emergency Provider Nurse Practitioner Family; PCP Internal Medicine
DX: N20.0 Calculus of kidney (principal); N13.30 Unspecified hydronephrosis; E11.9 Type 2 diabetes mellitus without complications; I10 Essential (primary) hypertension; F17.210 Nicotine dependence, cigarettes, uncomplicated
CPT/HCPCS: 12345; 74018; 74176; 80053; 85025; 96361; 96374; 96375; 96376; 99282; 99284; J2270; J2405; J7030

== ENCOUNTER → 2020-07-22 09:50 | Outpatient (BNVA) | payer MEDICARE, SELFPAY | PROVIDERS: PCP Internal Medicine; Visit Provider Internal Medicine | DX: Z11.59 Encounter for screening for other viral diseases (principal) | CPT/HCPCS: 87635 ==

== ENCOUNTER 2020-08-20 12:23 | Emergency (ER) | payer MEDICARE, SELFPAY ==
[2020-08-20 12:30] VITALS: BP 172/91; PULSE 86; RESP 24; TEMP 36.6; O2SAT 99; BMI 30.8
[2020-08-20 13:45] LABS: Basophils # 0.1 10^3/uL (0.0-0.1); Basophils % 0.7 %; Eosinophils # 0.4 10^3/uL (0.0-0.8); Eosinophils % 3.6 %; Hematocrit 39.8 % (42.0-52.0); Lymphocytes # 1.4 10^3/uL (0.8-4.8); Mean Corpuscular HGB Conc 32.7 g/dL (30.0-36.0); Mean Corpuscular Hemoglobin 29.5 pg (28.0-34.0); Mean Corpuscular Volume 90.2 fL (80-94); Mean Platelet Volume 9.3 fL (7.4-10.4); Monocytes # 0.6 10^3/uL (0.2-0.9); Monocytes % 5.6 %; Neutrophils # 8.43 10^3/uL (1.8-7.7); Neutrophils % 76.7 %; Nucleated Red Blood Cells % 0 %; Platelet Count 361 10^3/cmm (130-400); Red Blood Count 4.41 10^6/uL (4.1-5.3); Red Cell Distribution Width 13.1 % (12.1-15.1)
--- NOTE | 2020-08-20 13:47 | CT_ITS ---
WS: [id number] CT ABDOMEN PELVIS TECHNIQUE: Noncontrast CT of the abdomen and pelvis with coronal and sagittal reformatted images. CLINICAL INFORMATION: left renal pain/groin COMPARISON: None. DLP: 1881.[address] scans at [facility] use at least one of these dose optimization techniques: automat ed exposure control; mA and/or kV adjustment per patient size (includes targeted exams where dose is matched to clinical indication); or iterative reconstruction. FINDINGS: Horseshoe kidney. 3.7 mm calculus at the left UVJ results in mild left hydronephrosis and left ureter ectasis. Mild perinephric edema about both kidneys. Additional subcentimeter calyceal tip calculi non obstructive. Noncontrast liver is normal. Normal gallbladder. Normal spleen. Mild fatty atrophy of the pancreas. L kem bases are well aerated. Normal caliber abdominal aorta. Adrenal glands are normal. No free fluid in the pelvis. Incidental fa t-containing left greater than right inguinal hernias. Normal appendix. Normal sigmoid colon. CT/CT kidney stone [id number] IMPRESSION: 1. 3.7 mm obstructing left UVJ calculus with mild left ureterectasis and hydro nephrosis. 2. Stable horseshoe kidney with subcentimeter renal parenchymal calculi. 3. No other significant changes from previous. 4. Urine distended bladder. 5. Normal caliber abdominal aorta. Notified NIESHA Barraza at 08/20/2020 2:37 PM.
--- NOTE | 2020-08-20 13:57 | ED_ITS ---
HPI - General Adult General: Chief complaint: Abdominal Pain Stated complaint: KIDNEY STONE Time Seen by Provider: 08/20/20 13:40 History of Present Illness: HPI narrative: Patient states he has pain left groin area. Will cover with today. Patient states started in his left flank is moved into his left groin groin today. Says had 3 kidney stones in the last few months. Does see Dr. Pinon. He said last stone was 6 mm and had to have shockwave lithotripsy treatment took. Patient scheduled for surgery on his arm here in 2 weeks. Said he is very uncomfortable feels that the stone might be stuck in. Not want to take pain medicine Flomax would like to have a CT done to see what size the stone and whether needs to have further treatment done. complaint: Left groin pain Onset (ago): hour(s) Location: genitals Severity scale (1-10): 6 Quality: aching Pain Consistency: constant Relieving factors: none Exacerbating factors: none Associated symptoms: Reports no associated symptoms; Deny chest pain, dyspnea, headache(s), nausea, rash or vomiting Review of Systems Const: Denies: fever(s), chills or body aches Eyes: Denies: change in vision or blurry vision ENMT: Denies: throat pain or nasal congestion Card: Denies: chest pain or dyspnea on exertion Resp: Denies: dyspnea, productive cough or non-productive cough GI: Denies: abdominal pain, nausea or vomiting : Reports: testicular pain (Left flank pain) and other; Denies: difficulty urinating Musc: Denies: extremity pain Skin/Breast: Denies: rash Neuro: Denies: headache(s) Psych: Denies: anxiety or depression Chris/Lymph: Denies: easy bruising PFSH ED PFSH: Medical History (Updated 08/20/20 @ 16:18 by NIESHA Barraza) Dental caries Diabetes mellitus Erectile dysfunction due to diseases classified elsewhere Hypertension Urolithiasis Surgical History H/O neck surgery H/O repair of rotator cuff History of ankle surgery History of surgery on arm Social History Smoking and tobacco status: light tobacco smoker smokeless tobacco Alcohol intake: unknown Adopted: No Caregiver/support person: No Lives independently: No Household members: spouse Marital status: Current occupational status: disabled History of recent travel: No Current gender identity: Male Physical Exam Const: COMMON NORMALS: no acute distress, average body habitus and patient oriented x3 HENMT: COMMON NORMALS: normocephalic HEAD & SCALP: normal to inspection and normocephalic FACE & SINUS: normal facial exam Eye: COMMON NORMALS: conjunctivae normal GENERAL EYE: appearance normal, both eyes and all related structures CONJUNCTIVA: Yes conjunctivae normal Neck/C-Spine: COMMON NORMALS: no JVD Chest: COMMONS NORMALS: normal inspection of the chest Resp: COMMON NORMALS: normal respiratory effort and clear to auscultation bilaterally AUSCULTATION: clear to auscultation bilaterally Cardio: COMMON NORMALS: no JVD, regular rate and regular rhythm RATE: regular rate RHYTHM: regular rhythm GI: COMMON NORMALS: Normal to inspection, nondistended, normoactive bowel sounds present Extremity: COMMON NORMALS: normal to inspection and full ROM Neuro: COMMON NORMALS: patient oriented x3 Course Vital Signs: Vital signs: Vital Signs Temperature 97.8 F 08/20/20 12:30 Pulse Rate 63 08/20/20 17:39 Respiratory Rate 14 08/20/20 17:39 Blood Pressure 129/58 08/20/20 17:39 Pulse Oximetry 98 08/20/20 17:39 MDM - General Adult 2 MDM Narrative: Medical decision making narrative: Spoke with Dr. López with patient he said is good to go home he thinks he might pass stone but patient wants to be admitted her for pain can get under control for him to go ahead and be admitted. Patient chooses to go home he has neck surgery scheduled [facility] in 2 days he wants get that completed. Spoke with Dr. Mock discussed case Dr. Alegria agrees with plan. Lab Data: Labs: Lab Results 08/20/20 08/20/20 08/20/20 Range/Units 13:39 13:39 14:45 WBC 11.0 H (4.0-10.0) 10^3/ uL RBC 4.41 (4.1-5.3) 10^6/u L Hgb 13.0 (11.7-16.6) g/dL Hct 39.8 L (42.0-52.0) % MCV 90.2 (80-94) fL MCH 29.5 (28.0-34.0) pg MCHC 32.7 (30.0-36.0) g/dL RDW 13.1 (12.1-15.1) % Plt Count 361 (130-400) 10^3/c mm MPV 9.3 (7.4-10.4) fL Neut % (Auto) 76.7 % Lymph % (Auto) 13.0 % Craig % (Auto) 5.6 % Eos % (Auto) 3.6 % Baso % (Auto) 0.7 % Neut # (Auto) 8.43 H (1.8-7.7) 10^3/u L Lymph # (Auto) 1.4 (0.8-4.8) 10^3/u L Craig # (Auto) 0.6 (0.2-0.9) 10^3/u L Eos # (Auto) 0.4 (0.0-0.8) 10^3/u L Baso # (Auto) 0.1 (0.0-0.1) 10^3/u L Nucleated RBC % (a uto) 0 % Nucleated RBCs # 0.0 /100WBC Sodium 136 (136-145) mmol/L Potassium 5.3 H (3.5-5.1) mmol/L Chloride 106 (98-107) mmol/L Carbon Dioxide 19 L (22-29) mmol/L Anion Gap 16.3 (5-19) BUN 26 H (8-23) mg/dL Creatinine 1.5 H (0.7-1.2) mg/dL GFR Calculation 47.4 L (90-130) mL/min Glucose 281 H (65-115) mg/dL Calculated Osmolal ity 297 H (285-295) mOsm/k g Calcium 9.1 (8.5-10.5) mg/dL Total Bilirubin 0.4 (0.15-1.2) mg/dL AST 18 (0-40) U/L ALT 32 (0-41) U/L Alkaline Phosphata se 120 (40-130) IU/L Total Protein 7.2 (6.6-8.7) g/dL Albumin 4.3 (3.5-5.2) g/dL Globulin 2.9 (1.3-4.6) g/dL Lipase 63 H (13-60) U/L Urine Color Yellow (Yellow) Urine Appearance Sl hazy (CLEAR) Urine pH 5 (5-7) Ur Specific Gravit y 1.015 (1.005-1.030) Urine Protein Neg (Negative) Urine Glucose (UA) 4+ H (Normal) Urine Ketones Negative (Negative) Urine Blood 3+ H (Negative) Urine Nitrate Negative (Negative) Urine Bilirubin Neg (Negative) Urine Urobilinogen Neg (Negative) mg/dL Ur Leukocyte Nakia ase Negative (Negative) Urine RBC 50-80 H (0-2) /hpf Urine WBC None (0-5) /hpf Ur Squamous Epith Cells 0-4 H (0-5) /hpf Amorphous Sediment Not Reportable Urine Bacteria 2+ H (NONE) /hpf Urine Mucus 1+ /hpf Discharge Plan Discharge Patient Disposition: Home Clinical Impression: Urinary tract obstruction due to kidney stone Condition: Stable Prescriptions: New hydrocodone-acetaminophen 10-325 mg tablet 1 tab PO Q6H PRN (Reason: pain) Qty: 14 RF: 0 Flomax 0.4 mg capsule 0.4 mg PO DAILY Qty: 10 RF: 0 No Action sildenafil 100 mg tablet 100 mg PO DAILY PRN (Reason: sexual activity) Qty: 20 RF: 12 atorvastatin 40 mg Tablet 40 mg PO DAILY RF: 0 glipizide 10 mg Tablet Extended Release 24hr 10 mg PO DAILY RF: 0 metformin 1,000 mg Tablet 1,000 mg PO BID RF: 0 lisinopril 5 mg Tablet 5 mg PO DAILY RF: 0 hydrocodone-acetaminophen 7.5-325 mg tablet 1 tab PO Q4H PRN (Reason: pain) Qty: 14 RF: 0 Zofran 4 mg tablet 4 mg PO QID PRN (Reason: nausea and vomiting) Qty: 10 RF: 0 Flomax 0.4 mg capsule 0.4 mg PO Q24H Qty: 10 RF: 0 Discharge Orders: Discharge Order (Routine); Ordered 08/20/20 Ordered By: Lencho Latif Referrals: Tejas Wu DO [Primary Care Provider] - Discharge Diet: Usual diet Discharge Activity: Increase activity as tolerated Patient Instructions: Kidney Stones (ED) Activity Restrictions/Additional Instructions: Follow-up with medical provider as directed. Take medications as prescribed. Return to the ER or your medical provider if condition worsens. Please read and understand discharge instructions. If any questions ask please. Follow-up Dr. Pinon soon as possible Discharge Date/Time: 08/20/20 17:40 Coding Level of Care Code ED [place] Former Machine Operator for Shauna Fwd Exam Comprehensive
[2020-08-20 14:02] LABS: Alanine Aminotransferase 32 U/L (0-41); Albumin Level 4.3 g/dL (3.5-5.2); Alkaline Phosphatase 120 IU/L (40-130); Anion Gap 16.3 (5-19); Aspartate Amino Transferase 18 U/L (0-40); Blood Urea Nitrogen 26 mg/dL (8-23); Calcium 9.1 mg/dL (8.5-10.5); Carbon Dioxide 19 mmol/L (22-29); Chloride 106 mmol/L (98-107); Globulin 2.9 g/dL (1.3-4.6); Glomerular Filtration Rate 47.4 mL/min (90-130); Glucose 281 mg/dL (65-115); Lipase 63 U/L (13-60); Osmolality Calculated 297 mOsm/kg (285-295); Potassium 5.3 mmol/L (3.5-5.1); Sodium 136 mmol/L (136-145); Total Bilirubin 0.4 mg/dL (0.15-1.2); Total Protein 7.2 g/dL (6.6-8.7)
[2020-08-20] MEDS: HYDROcodone-acetaminophen 10-325 mg Tablet 1 TAB PO (14:14)
[2020-08-20] MEDS: ondansetron 4 MG Tablet PO (14:14)
[2020-08-20 14:15] LABS: Creatinine Clr Calc Pharmacy 59.8064
[2020-08-20] MEDS: sodium chloride 0.9% 1,000 ML 30 ML IV (14:38)
[2020-08-20] MEDS: morphine 4 mg/mL SDV 1 mL IVP (14:38)
[2020-08-20] MEDS: ondansetron 2 mg/ML SDV 2 mL 4 MG IVP (14:38)
[2020-08-20 15:01] LABS: Add Urine Microscopic? YES; Bilirubin Urine Neg (Negative); Blood Urine 3+ (Negative); Glucose Urine UA 4+ (Normal); Ketones Urine Negative (Negative); Leukocyte Esterase Urine Negative (Negative); Nitrate Urine Negative (Negative); Protein Urine Neg (Negative); Specific Gravity, Urine 1.015 (1.005-1.030); Urine Appearance SL Hazy (CLEAR); Urine Color Yellow (Yellow); Urobilinogen Urine Neg (Negative); pH Urine 5 (5-7)
[2020-08-20 15:02] LABS: Add Urine Culture? Yes; Bacteria Urine 2+ /hpf; Mucus Urine 1+ /hpf; RBC Urine 50-80 /hpf (0-2); Squamous Epithelial Cell Urine 0-4 /hpf (0-5)
[2020-08-20] MEDS: HYDROmorphone 1 mg/mL INJ 1 mL 0.5 MG IVP (15:13)
[2020-08-20 15:14] VITALS: BP 193/89; PULSE 94; RESP 18; O2SAT 98
[2020-08-20 15:48] VITALS: BP 153/79; PULSE 72; RESP 14; O2SAT 98
[2020-08-20] MEDS: HYDROmorphone 1 mg/mL INJ 1 mL IVP (15:53)
[2020-08-20] MEDS: tamsulosin 0.4 mg Capsule 0.8 MG PO (15:54)
[2020-08-20 17:39] VITALS: BP 129/58; PULSE 63; RESP 14; O2SAT 98
--- NOTE | 2020-08-22 13:04 | DCPLANNER ---
Addendum entered by Eri Goldberg 08/22/20 15:00: Vanessa from Dr. Amaya office called porter sample case and stated that patient has a follow up appointment scheduled for Thursday, October 22, 2020 at 1:[address] Pinon. Original Note: forest fire prevention manager had message to schedule a follow up appointment for patient with Dr. Pinon. forest fire prevention manager called the office of Dr. Pinon, spoke with Vanessa, gave clinic patients information. forest fire prevention manager was told that patients information would be printed and reviewed. Clinic will call patient with appointment information.
--- NOTE | 2020-11-12 12:52 | DCPLANNER ---
Patient had a follow up appointment scheduled for 10.22.[address] Pinon - patient did attend appointment.
== END 2020-08-20 17:40 | disposition home or self-care (01) ==
PROVIDERS: Family Medicine; Emergency Provider Nurse Practitioner Family; PCP Internal Medicine
DX: N20.0 Calculus of kidney (principal); E11.9 Type 2 diabetes mellitus without complications; I10 Essential (primary) hypertension; F17.210 Nicotine dependence, cigarettes, uncomplicated
CPT/HCPCS: 12345; 36415; 74176; 80053; 81001; 83690; 85025; 87086; 96374; 96375; 96376; 99283; J1170; J2270; J2405; J7030; Q0162

== ENCOUNTER 2020-10-16 16:33 | Emergency (ER) | payer MEDICARE, SELFPAY ==
[2020-10-16 16:48] VITALS: BP 118/61; PULSE 67; RESP 18; TEMP 36.6; O2SAT 98; BMI 30.2
--- NOTE | 2020-10-16 17:52 | XR_ITS ---
WS: [id number] Exam: XR KUB [id number] Date/Time of Exam: 10/16/2020 6:00 PM Reason For Exam: left renal stone Comparison 06/29/2020. No bowel obstruction or free air. Moderate amount retained stool in the colon. 3 mm calcification sup erimposes the right kidney and could represent a renal stone. Bony structures are intact. Visualized organ margins are otherwise intact. Nonspecific calcification superimposes the right ilium. XR/XR KUB [id number] IMPRESSION: 1. Moderate amount retained stool in the colon. 2. No acute finding in the abdomen or pelvis. 3. 3 mm calcification superimposes the right kidney that may represent renal st one. Vascular calcifications noted in the bilateral pelvis.
--- NOTE | 2020-10-16 17:54 | US_ITS ---
WS: [id number] RENAL ULTRASOUND URINARY BLADDER ULTRASOUND HISTORY: left renal stone COMPARISON: None available. TECHNIQUE: 2-D and color Doppler imaging of the kidney submitted. Known horseshoe kidneys. Right kidney: 10.8 cm x 5.4 cm x 6.3 cm. Normal echogenicity. No hydronephrosis. Lower poles of the kidneys directed centrally due to horsesho e shaped kidneys. No calcifications. Left kidney: 13.8 cm x 5.4 cm x 5.2 cm. Normal echogenicity with no hydronephrosis or mass. Exophytic cyst from the lower pole measures 2.5 x 2.6 x 2.9 cm. Horseshoe shaped kidney. No hydronephrosis. No calcifications identified. Aorta: Normal. Urinary Bladder: No significant post void residual. US/US renal BI with PV bladder IMPRESSION: 1. Horseshoe-shaped kidneys. 2. No post void residual. 3. No hydronephrosis or renal calcifications. 4. Simple cyst LEFT kidney.
[2020-10-16 18:07] VITALS: RESP 18; O2SAT 98
[2020-10-16] MEDS: sodium chloride 0.9% 1,000 ML 1000 ML IV (18:07)
[2020-10-16] MEDS: morphine 4 mg/mL SDV 1 mL IVP (18:07)
[2020-10-16] MEDS: ondansetron 2 mg/ML SDV 2 mL 4 MG IVP (18:08)
[2020-10-16 18:12] LABS: Basophils # 0.1 10^3/uL (0.0-0.1); Basophils % 0.6 %; Eosinophils # 0.3 10^3/uL (0.0-0.8); Eosinophils % 2.9 %; Hematocrit 36.7 % (42.0-52.0); Hemoglobin 12.1 g/dL (11.7-16.6); Lymphocytes # 1.9 10^3/uL (0.8-4.8); Lymphocytes % 20.7 %; Mean Corpuscular Hemoglobin 29.4 pg (28.0-34.0); Mean Corpuscular Volume 89.1 fL (80-94); Mean Platelet Volume 9.5 fL (7.4-10.4); Monocytes # 0.7 10^3/uL (0.2-0.9); Monocytes % 7.4 %; Neutrophils # 6.17 10^3/uL (1.8-7.7); Neutrophils % 68.1 %; Nucleated Red Blood Cells % 0 %; Platelet Count 372 10^3/cmm (130-400); Red Blood Count 4.12 10^6/uL (4.1-5.3); Red Cell Distribution Width 13.2 % (12.1-15.1); White Blood Count 9.1 10^3/uL (4.0-10.0)
[2020-10-16 18:26] LABS: Alanine Aminotransferase 13 U/L (0-41); Albumin Level 4.2 g/dL (3.5-5.2); Alkaline Phosphatase 127 IU/L (40-130); Anion Gap 14.4 (5-19); Aspartate Amino Transferase 17 U/L (0-40); Blood Urea Nitrogen 21 mg/dL (8-23); Calcium 8.9 mg/dL (8.5-10.5); Carbon Dioxide 20 mmol/L (22-29); Chloride 105 mmol/L (98-107); Globulin 2.4 g/dL (1.3-4.6); Glucose 126 mg/dL (65-115); Lipase 35 U/L (13-60); Osmolality Calculated 285 mOsm/kg (285-295); Potassium 4.4 mmol/L (3.5-5.1); Sodium 135 mmol/L (136-145); Total Bilirubin 0.4 mg/dL (0.15-1.2); Total Protein 6.6 g/dL (6.6-8.7)
--- NOTE | 2020-10-16 18:50 | W.ED.MALEGU ---
HPI - Male Genitourinary General: Chief complaint: Urogenital-Male Stated complaint: POSS KIDNEY STONE Time Seen by Provider: 10/16/20 17:46 Source: patient Mode of arrival: ambulatory Limitations: no limitations History of Present Illness: HPI Narrative: 60-year-old male patient presents to the emergency department at the direction of Dr. Pinon due to left flank pain. He reports history of several kidney stones in the past. Reports intense left flank pain. He reports past sediment, part of the stone on 10/14/2020. He reports today around noon, developed intense colicky left flank pain. States cannot find a comfortable position. Difficulty with urination. He reports called Dr. Pinon with referral to the emergency department. He denies fever chills, reports nausea secondary to pain. He reports pain is similar to that of previously experienced with stones. Previous CT scan of the abdomen pelvis July 2020 revealed a 3.7 mm obstructing left UVJ calculus with left utero ectasis and hydronephrosis. He states was able to pass that stone and was hopeful same would occur with this stone. MD Complaint: other (Left flank pain) Duration: constant Location: left flank Radiation: left flank Severity: severe Severity scale (1-10): 9 Quality: aching and sharp Relieving factors: none Exacerbating factors: none Associated symptoms: Reports dysuria and nausea; Deny vomiting Review of Systems General: Reports: 10 or more systems reviewed and unremarkable except in HPI and below Const: Denies: fever(s), chills or diaphoresis Eyes: Denies: blurry vision or eye redness ENMT: Denies: throat pain, dental pain or disequilibrium Card: Denies: chest pain, palpitations or irregular heart rhythm Resp: Denies: dyspnea, productive cough, non-productive cough or wheezing GI: Reports: abdominal pain and nausea; Denies: vomiting or heartburn : Reports: dysuria Musc: Denies: neck pain or back pain Skin/Breast: Denies: rash or pruritus Neuro: Denies: headache(s), weakness in extremities or behavioral changes Psych: Denies: anxiety or depression Chris/Lymph: Denies: easy bruising PFSH ED PFSH: Medical History (Updated 10/16/20 @ 21:23 by FIONA Chang) Dental caries Diabetes mellitus Erectile dysfunction due to diseases classified elsewhere Hypertension Urolithiasis Surgical History H/O neck surgery H/O repair of rotator cuff History of ankle surgery History of surgery on arm Social History Smoking and tobacco status: light tobacco smoker smokeless tobacco Alcohol intake: unknown Adopted: No Caregiver/support person: No Lives independently: No Household members: spouse Marital status: Current occupational status: disabled History of recent travel: No Current gender identity: Male Physical Exam Const: COMMON NORMALS: patient oriented x3, healthy appearing and alert GENERAL APPEARANCE: cooperative, anxious, well hydrated and other (appears in pain) NUTRITIONAL APPEARANCE: thin ORIENTATION/CONSCIOUSNESS: Yes awake, Yes oriented to person, Yes oriented to place and Yes oriented to time HENMT: COMMON NORMALS: normocephalic, Normal external nose present and moist oral mucous membranes HEAD & SCALP: normocephalic NOSE: Normal external nose present Eye: COMMON NORMALS: Equal, round and reactive pupils present and EOMs intact bilaterally GENERAL EYE: appearance normal, both eyes and all related structures PUPIL: Yes Equal, round and reactive pupils present Neck/C-Spine: COMMON NORMALS: full ROM and no lymphadenopathy GENERAL: Yes normal visual inspection and Yes trachea midline CERVICAL SPINE: Yes cervical ROM normal Lymph: LYMPHATIC: no lymphadenopathy noted Chest: COMMONS NORMALS: normal inspection of the chest Resp: COMMON NORMALS: normal respiratory effort and clear to auscultation bilaterally AUSCULTATION: clear to auscultation bilaterally Cardio: COMMON NORMALS: regular rhythm, S1 normal heart sound present and S2 normal heart sound present RHYTHM: regular rhythm HEART SOUNDS: S1 normal heart sound present and S2 normal heart sound present GI: COMMON NORMALS: Normal to inspection, nondistended, normoactive bowel sounds present and Soft to palpation INSPECTION: Yes normal to inspection AUSCULTATION: Yes normoactive bowel sounds PALPATION: Yes Soft to palpation, Yes Tenderness to palpation present (GI) Details: LLQ and LUQ, No Hepatosplenomegaly present, No Hernia present and Yes Rebound tenderness present : BLADDER/KIDNEY EXAM: Yes CVA tenderness on the left Back/Pelvis: COMMON NORMALS: thoracic and lumbar spine normal to inspection Extremity: COMMON NORMALS: normal to inspection and capillary refill normal Neuro: COMMON NORMALS: patient oriented x3 and no focal motor deficits SENSORIUM/ORIENTATION: Yes alert, Yes oriented to person, Yes oriented to place and Yes oriented to time Psych: COMMON NORMALS: mental status grossly normal, Normal thought process present and cooperative ACTIVITY/MOTOR BEHAVIOR: Yes appropriate eye contact THOUGHT PROCESS: Normal thought process present Skin: COMMON NORMALS: no rashes or lesions noted and turgor normal GENERAL SKIN EXAM: no rashes or lesions noted and turgor normal Course ED course: 60-year-old male patient presents to the emergency department with passage of left renal stone into the bladder. Pain controlled with Dilaudid, ultrasound did not appreciate stone in the ureter, CT renal stone protocol visualized 9 x 4 mm stone in the left urinary bladder with residual mild to moderate left hydronephrosis consistent with recently passed stone. Call to Dr. Pinon with reassurance to the patient he should be able to pass stone through the urethra. Pain medication dispensed recommendation by Dr. Cruz -patient advised to return to emergency department for concerning symptoms such as nausea vomiting or fever. Verbalized understanding. Results discussed plan of care discussed, agrees to call Dr. Pinon's office in the morning with update. Consultations: Consultation #1: Dr Pinon, urology, CT scan and laboratory findings discussed, reports patient should passed stone, advised patient to contact office in the morning, advised to initiate Flomax, advised good pain control. Time: 21:15 Vital Signs: Vital signs: Vital Signs Temperature 97.9 F 10/16/20 16:48 Pulse Rate 78 10/16/20 21:44 Respiratory Rate 18 10/16/20 21:44 Blood Pressure 147/79 10/16/20 21:44 Pulse Oximetry 98 10/16/20 21:44 MDM - Male Lab Data: Labs: Lab Results 10/16/20 10/16/20 10/16/20 Range/Units 17:07 17:07 19:10 WBC 9.1 (4.0-10.0) 10^3/ uL RBC 4.12 (4.1-5.3) 10^6/u L Hgb 12.1 (11.7-16.6) g/dL Hct 36.7 L (42.0-52.0) % MCV 89.1 (80-94) fL MCH 29.4 (28.0-34.0) pg MCHC 33.0 (30.0-36.0) g/dL RDW 13.2 (12.1-15.1) % Plt Count 372 (130-400) 10^3/c mm MPV 9.5 (7.4-10.4) fL Neut % (Auto) 68.1 % Lymph % (Auto) 20.7 % Carbon % (Auto) 7.4 % Eos % (Auto) 2.9 % Baso % (Auto) 0.6 % Neut # (Auto) 6.17 (1.8-7.7) 10^3/u L Lymph # (Auto) 1.9 (0.8-4.8) 10^3/u L Carbon # (Auto) 0.7 (0.2-0.9) 10^3/u L Eos # (Auto) 0.3 (0.0-0.8) 10^3/u L Baso # (Auto) 0.1 (0.0-0.1) 10^3/u L Nucleated RBC % (a uto) 0 % Nucleated RBCs # 0.0 /100WBC Sodium 135 L (136-145) mmol/L Potassium 4.4 (3.5-5.1) mmol/L Chloride 105 (98-107) mmol/L Carbon Dioxide 20 L (22-29) mmol/L Anion Gap 14.4 (5-19) BUN 21 (8-23) mg/dL Creatinine 1.7 H (0.7-1.2) mg/dL GFR Calculation 41.0 L (90-130) mL/min Glucose 126 H (65-115) mg/dL Calculated Osmolal ity 285 (285-295) mOsm/k g Calcium 8.9 (8.5-10.5) mg/dL Total Bilirubin 0.4 (0.15-1.2) mg/dL AST 17 (0-40) U/L ALT 13 (0-41) U/L Alkaline Phosphata se 127 (40-130) IU/L Total Protein 6.6 (6.6-8.7) g/dL Albumin 4.2 (3.5-5.2) g/dL Globulin 2.4 (1.3-4.6) g/dL Lipase 35 (13-60) U/L Urine Color Yellow (Yellow) Urine Appearance Clear (CLEAR) Urine pH 5 (5-7) Ur Specific Gravit y 1.020 (1.005-1.030) Urine Protein Neg (Negative) Urine Glucose (UA) Norm (Normal) Urine Ketones Negative (Negative) Urine Blood 3+ H (Negative) Urine Nitrate Negative (Negative) Urine Bilirubin Neg (Negative) Urine Urobilinogen Norm (Negative) mg/dL Ur Leukocyte Nakia ase Negative (Negative) Urine RBC 25-40 H (0-2) /hpf Urine WBC 0-4 H (0-5) /hpf Ur Squamous Epith Cells 0-4 H (0-5) /hpf Amorphous Sediment Not Reportable Urine Bacteria 2+ H (NONE) /hpf Hyaline Casts 0-4 H /lpf Urine Sperm 1+ /hpf Imaging Data: US: My impression: No hydronephrosis, no renal stone appreciated. CT Abd/Pel: Radiologist's impression: [address] [address] [address] Scan Report Signed Patient: Jordan Henriquez Unit #: [id number] : [id number] Age/Sex: 60 / M ADM Date: 10/16/20 Loc: ER Room/Bed: Attending Dr: Ordering Provider/Ordering MD: Ana Mae Date of Service: 10/16/20 Procedure(s): CT kidney stone [id number] Accession Number(s): [id number] Report Number: [id number] PROCEDURE INFORMATION: Exam: CT Abdomen And Pelvis Without Contrast Exam date and time: 10/16/2020 8:10 PM Age: 60 years old Clinical indication: Abdominal pain; Localized; Left; Additional info: Renal stone TECHNIQUE: Imaging protocol: Computed tomography of the abdomen and pelvis without contrast. Radiation optimization: All CT scans at this facility use at least one of these dose optimization techniques: automated exposure control; mA and/or kV adjustment per patient size (includes targeted exams where dose is matched to clinical indication); or iterative reconstruction. COMPARISON: CT kidney stone [id number] 06/29/2020 10:33 AM RADIATION DOSE METRICS: Total DLP (mGy-cm): 1765.35 FINDINGS: Liver: Normal. No mass. Gallbladder and bile ducts: Normal. No calcified stones. No ductal dilation. Pancreas: Normal. No ductal dilation. Spleen: Normal. No splenomegaly. Adrenal glands: Normal. No mass. Kidneys and ureters: Normal-variant horseshoe kidney. One or more nonobstructing left renal calyceal stones. Left renal simple cyst measuring >1.0 cm. Large 9 x 4 mm stone in the left urinary bladder with residual [id number] left hydronephrosis consistent with recently passed stone. Stomach and bowel: Unremarkable. No obstruction. No mucosal thickening. Appendix: No evidence of appendicitis. Intraperitoneal space: Unremarkable. No free air. No significant fluid collection. Vasculature: Stable severe calcified coronary artery disease. Calcification of the abdominal aorta and/or iliac arteries consistent with atherosclerotic vessel disease. Lymph nodes: Unremarkable. No enlarged lymph nodes. Urinary bladder: Unremarkable as visualized. Reproductive: Unremarkable as visualized. Bones/joints: Unremarkable. No acute fracture. Soft tissues: Unremarkable. CT/CT kidney stone [id number] IMPRESSION: 1. Normal-variant horseshoe kidney. 2. One or more nonobstructing left renal calyceal stones. 3. Large 9 x 4 mm stone in the left urinary bladder with residual [id number] left hydronephrosis consistent with recently passed stone. COMMENTS: Consistent with the [employer]'s Incidental Findings Committee white paper (J Am Sailaja Radiol 2018): Any incidental renal lesion less than 1 cm or classified as too small to characterize, or any incidental cystic renal lesion characterized as simple-appearing, is likely benign. No follow-up imaging is recommended for these lesions per consensus recommendations based on imaging criteria. Radiation Dose CTDIVOL = (mGy): DLP = 1765.35 (mGy-cm) Dictated By: Rod Keane MD Signed By: Rod Keane MD Signed Date/Time: 10/16/202050 DD/ 49 Discharge Plan Discharge Patient Disposition: Home Clinical Impression: Kidney stone on left side, Renal colic on left side Condition: Stable Prescriptions: New hydrocodone-acetaminophen 5-325 mg tablet 1 tab PO Q4H PRN (Reason: pain) Qty: 10 RF: 0 Continued Flomax 0.4 mg capsule 0.4 mg PO DAILY Qty: 15 RF: 0 No Action sildenafil 100 mg tablet 100 mg PO DAILY PRN (Reason: sexual activity) Qty: 20 RF: 12 atorvastatin 40 mg Tablet 40 mg PO DAILY RF: 0 glipizide 10 mg Tablet Extended Release 24hr 10 mg PO DAILY RF: 0 metformin 1,000 mg Tablet 1,000 mg PO BID RF: 0 lisinopril 5 mg Tablet 5 mg PO DAILY RF: 0 Discharge Orders: Discharge Order (Routine); Ordered 10/16/20 Ordered By: Ana Mae Referrals: Tejas Wu, [Primary Care Provider] - Discharge Diet: Usual diet Discharge Activity: Limit activity as instructed Patient Instructions: Kidney Stones (ED), Renal Colic (ED), How to Strain Your Urine (ED), Abdominal Pain (ED) Activity Restrictions/Additional Instructions: Continue to strain urine Take pain medication with food to avoid stomach upset Return to the emergency department if you develop inability to urinate, fever or worsening abdominal pain Call Dr. Pinon's office tomorrow without fail for follow-up Start Flomax, tamsulosin tomorrow as your first dose was administered here in the emergency department Push fluids, lots and lots of fluids to help facilitate stone passage Coding Level of Care Code ED Insurance Sales Representative for Shauna Fwd Exam Comprehensive
[2020-10-16 19:28] VITALS: RESP 18; O2SAT 98
[2020-10-16] MEDS: HYDROmorphone 1 mg/mL INJ 1 mL 0.5 MG IVP ×2 (19:28→20:22)
[2020-10-16 19:56] LABS: Add Urine Microscopic? YES; Bilirubin Urine Neg (Negative); Blood Urine 3+ (Negative); Glucose Urine UA Norm (Normal); Ketones Urine Negative (Negative); Leukocyte Esterase Urine Negative (Negative); Nitrate Urine Negative (Negative); Protein Urine Neg (Negative); Urine Appearance Clear (CLEAR); Urine Color Yellow (Yellow); Urobilinogen Urine Norm (Negative); pH Urine 5 (5-7)
[2020-10-16 19:58] LABS: Add Urine Culture? Yes; Bacteria Urine 2+ /hpf; Hyaline Casts Urine 0-4 /lpf; RBC Urine 25-40 /hpf (0-2); Sperm Urine 1+ /hpf; Squamous Epithelial Cell Urine 0-4 /hpf (0-5); WBC Urine 0-4 /hpf (0-5)
--- NOTE | 2020-10-16 20:04 | CTR_ITS ---
PROCEDURE INFORMATION: Exam: CT Abdomen And Pelvis Without Contrast Exam date and time: 10/16/2020 8:10 PM Age: 60 years old Clinical indication: Abdominal pain; Localized; Left; Additional info: Renal stone TECHNIQUE: Imaging protocol: Computed tomography of the abdomen and pelvis without contrast. Radiation optimization: All CT scans at this facility use at least one of these dose optimization techniques: automated exposure control; mA and/or kV adjustment per patient size (includes targeted exams where dose is matched to clinical indication); or iterative reconstruction. COMPARISON: CT kidney stone [id number] 06/29/2020 10:33 AM RADIATION DOSE METRICS: Total DLP (mGy-cm): 1765.35 FINDINGS: Liver: Normal. No mass. Gallbladder and bile ducts: Normal. No calcified stones. No ductal dilation. Pancreas: Normal. No ductal dilation. Spleen: Normal. No splenomegaly. Adrenal glands: Normal. No mass. Kidneys and ureters: Normal-variant horseshoe kidney. One or more nonobstructing left renal calyceal stones. Left renal simple cyst measuring >1.0 cm. Large 9 x 4 mm stone in the left urinary bladder with residual [id number] left hydronephrosis consistent with recently passed stone. Stomach and bowel: Unremarkable. No obstruction. No mucosal thickening. Appendix: No evidence of appendicitis. Intraperitoneal space: Unremarkable. No free air. No significant fluid collection. Vasculature: Stable severe calcified coronary artery disease. Calcification of the abdominal aorta and/or iliac arteries consistent with atherosclerotic vessel disease. Lymph nodes: Unremarkable. No enlarged lymph nodes. Urinary bladder: Unremarkable as visualized. Reproductive: Unremarkable as visualized. Bones/joints: Unremarkable. No acute fracture. Soft tissues: Unremarkable. CT/CT kidney stone [id number] IMPRESSION: 1. Normal-variant horseshoe kidney. 2. One or more nonobstructing left renal calyceal stones. 3. Large 9 x 4 mm stone in the left urinary bladder with residual [id number] left hydronephrosis consistent with recently passed stone. COMMENTS: Consistent with the [employer]'s Incidental Findings Committee white paper (J Am Sailaja Radiol 2018): Any incidental renal lesion less than 1 cm or classified as too small to characterize, or any incidental cystic renal lesion characterized as simple-appearing, is likely benign. No follow-up imaging is recommended for these lesions per consensus recommendations based on imaging criteria. Radiation Dose CTDIVOL = (mGy): DLP = 1765.35 (mGy-cm)
[2020-10-16 20:22] VITALS: RESP 18; O2SAT 98
[2020-10-16 21:44] VITALS: BP 147/79; PULSE 78; RESP 18; O2SAT 98
[2020-10-16] MEDS: tamsulosin 0.4 mg Capsule PO (21:46)
== END 2020-10-16 21:47 | disposition home or self-care (01) ==
PROVIDERS: Emergency Provider Nurse Practitioner Family; PCP Internal Medicine
DX: N20.0 Calculus of kidney (principal); E11.9 Type 2 diabetes mellitus without complications; I10 Essential (primary) hypertension; F17.210 Nicotine dependence, cigarettes, uncomplicated
CPT/HCPCS: 12345; 74018; 74176; 76770; 76857; 80053; 81001; 83690; 85025; 87086; 96361; 96374; 96375; 96376; 99283; J1170; J2270; J2405; J7040

== ENCOUNTER 2020-10-22 12:24 | Outpatient (CLI) | payer MEDICARE, SELFPAY ==
--- NOTE | 2020-10-22 12:34 | XRR_ITS ---
PROCEDURE INFORMATION: Exam: XR Abdomen, 1 View Exam date and time: 10/22/2020 12:50 PM Age: 60 years old Clinical indication: Condition or disease; Kidney or ureter condition; Calculus (stone) in kidney; Additional info: Urolithiasis TECHNIQUE: Imaging protocol: XR of the abdomen. Views: Frontal supine view of the abdomen. 1 View. COMPARISON: CT kidney stone [id number] 10/16/2020 8:26 PM FINDINGS: Gastrointestinal tract: Multiple dilated gas-filled bowel loops are seen corresponding to moderate ileus. Negative for bowel obstruction. Bones/joints: Unremarkable. XR/XR KUB [id number] IMPRESSION: 1. Moderate ileus 2. Negative for bowel obstruction
== END 2020-10-22 12:25 | disposition home or self-care (01) ==
LOC: RAD 12:33
PROVIDERS: PCP Internal Medicine; Visit Provider Urology
DX: N20.9 Urinary calculus, unspecified (principal); K56.7 Ileus, unspecified
CPT/HCPCS: 74018

== ENCOUNTER 2020-12-12 07:57 | Outpatient (CLI) | payer MEDICARE, SELFPAY ==
--- NOTE | 2020-12-12 08:05 | XR_ITS ---
WS: [id number] KUB, 12/12/2020 Clinical Data: STONES Comparison: KUB, 10/22/2020. Findings: No abnormal intraabdominal masses are seen. There are calcifications in the trimble of arteries but non e is seen overlying the kidneys. There is no dilatated small bowel or evidence of obstruction. The air in the small bowel and the colon obscures detail over the kidneys. XR/XR KUB [id number] Impression: Negative KUB.
== END 2020-12-12 07:58 | disposition home or self-care (01) ==
PROVIDERS: PCP Internal Medicine; Visit Provider Urology
DX: N20.9 Urinary calculus, unspecified (principal)
CPT/HCPCS: 74018; 81003; 82365; 88300

== ENCOUNTER → 2020-12-26 10:40 | Outpatient (BNVA) | payer MEDICARE, SELFPAY | PROVIDERS: PCP Internal Medicine; Visit Provider Urology | DX: N20.2 Calculus of kidney with calculus of ureter (principal); N39.9 Disorder of urinary system, unspecified | CPT/HCPCS: 80048; 81003; 82131; 82140; 82340; 82436; 82507; 82570; 83735; 83935; 84100; 84300 ==

== ENCOUNTER → 2021-02-10 09:30 | Outpatient (BNVA) | payer MEDICARE, SELFPAY | PROVIDERS: PCP Internal Medicine; Visit Provider Urology | DX: N20.2 Calculus of kidney with calculus of ureter (principal) | CPT/HCPCS: 81003 ==

== ENCOUNTER 2021-12-31 04:03 | Inpatient (IN) | payer MEDICARE, SELFPAY ==
[2021-12-31] VITALS (20 sets, daily range): BP systolic 119–137; BP diastolic 59–76; PULSE 58–83; RESP 14–24; TEMP 36.6–36.8; O2SAT 92–98; BMI 30.8
--- NOTE | 2021-12-31 04:04 | XRR_ITS ---
PROCEDURE INFORMATION: Exam: XR Chest Exam date and time: 12/31/2021 4:04 AM Age: 61 years old Clinical indication: Chest pressure; Prior surgery; Surgery type: Cervical fusion. ; Patient HX: C/O chest pain with persistent cough. ; Additional info: Cp TECHNIQUE: Imaging protocol: XR of the chest. Views: 1 view. Total images: 1 COMPARISON: CT chest wo con [id number] 10/02/2019 3:27 PM FINDINGS: Lungs: Low lung volumes are present, accentuating pulmonary markings. There are diffuse prominent interstitial markings are most pronounced at the lung bases. Pleural spaces: Unremarkable. No pleural effusion. No pneumothorax. Heart/Mediastinum: Unremarkable. No cardiomegaly. Bones/joints: Spinal fusion hardware noted. XR/XR chest 1V portable [id number] IMPRESSION: 1. Low lung volumes are present, accentuating pulmonary markings. 2. There are diffuse prominent interstitial markings are most pronounced at the lung bases. Findings may represent atelectasis and or mild edema. Diffuse pneumonia felt less likely.
--- NOTE | 2021-12-31 04:16 | W.ED.CHESTPA ---
HPI - Chest Pain General: Chief Complaint: ER Hold Stated Complaint: CP/COUGH Time Seen by Provider: 12/31/21 04:03 Source: patient and EMS Mode of arrival: EMS Limitations: no limitations History of Present Illness: 61-year-old male who states that he has been having chest pain that is in the center of his chest 2 hours ago. He also started having a coughing fit 3 to 4 hours ago with wheezing. He states that he is having increasing shortness of breath as well. Denies any worsening improving factors denies any nausea or vomiting denies any fevers or sick contacts that he knows of. Patient is currently on 2 L nasal cannula Associated symptoms: Reports dyspnea; Deny abdominal pain, fever(s), nausea or vomiting Review of Systems Const: Denies: fever(s), chills, body aches or change in appetite Eyes: Denies: blurry vision or eye discomfort ENMT: Denies: throat pain or dental pain Card: Reports: chest pain Resp: Reports: dyspnea, non-productive cough and wheezing GI: Denies: abdominal pain, nausea, vomiting or diarrhea : Denies: dysuria Musc: Denies: neck pain or back pain Skin/Breast: Denies: rash Neuro: Denies: headache(s) Psych: Denies: depression Chris/Lymph: Denies: easy bruising All/Imm: Denies: urticaria PFSH ED PFSH: Medical History Dental caries Diabetes mellitus Erectile dysfunction due to diseases classified elsewhere Hypertension Urolithiasis Surgical History H/O neck surgery H/O repair of rotator cuff History of ankle surgery History of surgery on arm Social History Smoking and tobacco status: light tobacco smoker smokeless tobacco Alcohol intake: unknown Adopted: No Caregiver/support person: No Lives independently: No Household members: spouse Marital status: Current occupational status: disabled History of recent travel: No Current gender identity: Male Physical Exam Const: COMMON NORMALS: no acute distress, patient oriented x3 and healthy appearing HENMT: COMMON NORMALS: normocephalic and atraumatic HEAD & SCALP: normocephalic and atraumatic Eye: COMMON NORMALS: Equal, round and reactive pupils present and EOMs intact bilaterally PUPIL: Yes Equal, round and reactive pupils present Neck/C-Spine: COMMON NORMALS: full ROM and supple Chest: COMMONS NORMALS: normal inspection of the chest and normal palpation of entire chest wall Resp: COMMON NORMALS: normal respiratory effort, No retractions, No use of accessory muscles and clear to auscultation bilaterally AUSCULTATION: clear to auscultation bilaterally and wheezes Cardio: COMMON NORMALS: regular rate, regular rhythm and No murmurs present (Cardio) RATE: regular rate RHYTHM: regular rhythm GI: COMMON NORMALS: Normal to inspection, nondistended, normoactive bowel sounds present, Soft to palpation, non-tender and no masses PALPATION: Yes Soft to palpation Extremity: COMMON NORMALS: normal to inspection and full ROM Neuro: COMMON NORMALS: patient oriented x3, moves all extremities and no focal motor deficits Psych: COMMON NORMALS: mental status grossly normal, Normal thought process present and cooperative THOUGHT PROCESS: Normal thought process present Skin: COMMON NORMALS: no rashes or lesions noted and no wounds GENERAL SKIN EXAM: no rashes or lesions noted Course Vital Signs: Vital signs: Vital Signs Pulse Rate 64 12/31/21 14:00 Respiratory Rate 16 12/31/21 13:00 Blood Pressure 128/66 12/31/21 13:00 Pulse Oximetry 98 12/31/21 13:00 MDM - Chest Pain Medical Decision Making Patient presents here with an NSTEMI patient's troponin is elevated he has been pain-free here EKG shows no ST elevation I did speak to airport sales agent will admit at this time patient given Lovenox here. Lab Data : 12/31/21 04:10 12/31/21 04:10 Radiology Impressions Chest X-Ray 12/31/21 04:04 IMPRESSION: 1. Low lung volumes are present, accentuating pulmonary markings. 2. There are diffuse prominent interstitial markings are most pronounced at the lung bases. Findings may represent atelectasis and or mild edema. Diffuse pneumonia felt less likely. Laboratory Results WBC 9.5 10^3/uL (4.0-10.0) 12/31/21 04:10 RBC 4.38 10^6/uL (4.1-5.3) 12/31/21 04:10 Hgb 9.9 g/dL (11.7-16.6) L 12/31/21 04:10 Hct 34.0 % (42.0-52.0) L 12/31/21 04:10 MCV 77.6 fl (80-94) L 12/31/21 04:10 MCH 22.6 pg (28.0-34.0) L 12/31/21 04:10 MCHC 29.1 g/dL (30.0-36.0) L 12/31/21 04:10 RDW 15.6 % (12.1-15.1) H 12/31/21 04:10 Plt Count 644 10^3/cmm (130-400) H 12/31/21 04:10 MPV 10.4 fL (7.4-10.4) 12/31/21 04:10 Neut % (Auto) 59.3 % 12/31/21 04:10 Lymph % (Auto) 25.3 % 12/31/21 04:10 [place] % (Auto) 8.1 % 12/31/21 04:10 Eos % (Auto) 5.9 % 12/31/21 04:10 Baso % (Auto) 1.2 % 12/31/21 04:10 Neut # (Auto) 5.61 10^3/uL (1.8-7.7) 12/31/21 04:10 Lymph # (Auto) 2.4 10^3/uL (0.8-4.8) 12/31/21 04:10 [place] # (Auto) 0.8 10^3/uL (0.2-0.9) 12/31/21 04:10 Eos # (Auto) 0.6 10^3/uL (0.0-0.8) 12/31/21 04:10 Baso # (Auto) 0.1 10^3/uL (0.0-0.1) 12/31/21 04:10 Nucleated RBC % (auto) 0 % 12/31/21 04:10 Nucleated RBCs # 0.0 /100WBC 12/31/21 04:10 D-Dimer 0.71 ug/mIFEU (0-0.59) H 12/31/21 04:10 Sodium 135 mmol/L (136-145) L 12/31/21 04:10 Potassium 5.1 mmol/L (3.5-5.1) 12/31/21 04:10 Chloride 101 mmol/L (98-107) 12/31/21 04:10 Carbon Dioxide 19 mmol/L (22-29) L 12/31/21 04:10 Anion Gap 20.1 (5-19) H 12/31/21 04:10 BUN 19 mg/dL (8-23) 12/31/21 04:10 Creatinine 1.3 mg/dL (0.7-1.2) H 12/31/21 04:10 GFR Calculation 55.8 mL/min (90-130) L 12/31/21 04:10 Glucose 293 mg/dL (65-115) H 12/31/21 04:10 POC Glucose 248 mg/dL (70-110) H 12/31/21 08:05 Calculated Osmolality 293 mOsm/kg (285-295) 12/31/21 04:10 Calcium 8.2 mg/dL (8.5-10.5) L 12/31/21 04:10 Total Bilirubin 0.2 mg/dL (0.15-1.2) 12/31/21 04:10 AST 16 U/L (0-40) 12/31/21 04:10 ALT 14 U/L (0-41) 12/31/21 04:10 Alkaline Phosphatase 147 IU/L (40-130) H 12/31/21 04:10 Troponin T Baseline 167 ng/L (0-15) H* 12/31/21 04:10 Troponin T 120 Minute 340.5 ng/L (0-15) H 12/31/21 06:30 Delta Troponin T 173.5 ABS# (0-10) H* 12/31/21 06:30 NT-Pro-B Natriuret Pep 928 pg/mL (0-125) H 12/31/21 04:10 Total Protein 6.6 g/dL (6.6-8.7) 12/31/21 04:10 Albumin 4.1 g/dL (3.5-5.2) 12/31/21 04:10 Globulin 2.5 g/dL (1.3-4.6) 12/31/21 04:10 Coronavirus 229E (PCR) Not detected (NOT DETECT) 12/31/21 04:29 SARS-CoV-2 (PCR) Not detected (NOT DETECT) 12/31/21 04:29 EKG Data EKG 1: I personally reviewed and interpreted this EKG as follows: EKG interpretation date: 12/31/21 EKG interpretation time: 04:15 Interpretation: nsr hr [address] or t wave abnormalities qrs 102 qtc 405 Discharge Plan Discharge Patient Disposition: Admitted As Inpatient Admit Provider: Hal Posey Clinical Impression: Non-ST elevation [place] (NSTEMI), Upper respiratory infection Condition: Stable Coding Level of Care Code ED Page Makeup System Operator for Chg Fwd Exam Comprehensive
[2021-12-31 04:30] LABS: Glucose Point of Care 289 mg/dL (70-110)
[2021-12-31 04:40] LABS: Basophils # 0.1 10^3/uL (0.0-0.1); Basophils % 1.2 %; Eosinophils # 0.6 10^3/uL (0.0-0.8); Eosinophils % 5.9 %; Hemoglobin 9.9 g/dL (11.7-16.6); Lymphocytes # 2.4 10^3/uL (0.8-4.8); Lymphocytes % 25.3 %; Mean Corpuscular HGB Conc 29.1 g/dL (30.0-36.0); Mean Corpuscular Hemoglobin 22.6 pg (28.0-34.0); Mean Corpuscular Volume 77.6 fl (80-94); Mean Platelet Volume 10.4 fL (7.4-10.4); Monocytes # 0.8 10^3/uL (0.2-0.9); Monocytes % 8.1 %; Neutrophils # 5.61 10^3/uL (1.8-7.7); Neutrophils % 59.3 %; Nucleated Red Blood Cells % 0 %; Platelet Count 644 10^3/cmm (130-400); Red Blood Count 4.38 10^6/uL (4.1-5.3); Red Cell Distribution Width 15.6 % (12.1-15.1); White Blood Count 9.5 10^3/uL (4.0-10.0)
[2021-12-31] MEDS: ipratropium-albuterol 3 mL Neb INHALATION (04:52)
[2021-12-31 05:04] LABS: Troponin(5th) Baseline 167 ng/L (0-15)
[2021-12-31 05:11] LABS: Alanine Aminotransferase 14 U/L (0-41); Albumin Level 4.1 g/dL (3.5-5.2); Alkaline Phosphatase 147 IU/L (40-130); Anion Gap 20.1 (5-19); Aspartate Amino Transferase 16 U/L (0-40); Blood Urea Nitrogen 19 mg/dL (8-23); Calcium 8.2 mg/dL (8.5-10.5); Carbon Dioxide 19 mmol/L (22-29); Chloride 101 mmol/L (98-107); Globulin 2.5 g/dL (1.3-4.6); Glomerular Filtration Rate 55.8 mL/min (90-130); Glucose 293 mg/dL (65-115); NT Pro B Type Natriuretic Pept 928 pg/mL (0-125); Osmolality Calculated 293 mOsm/kg (285-295); Potassium 5.1 mmol/L (3.5-5.1); Sodium 135 mmol/L (136-145); Total Bilirubin 0.2 mg/dL (0.15-1.2); Total Protein 6.6 g/dL (6.6-8.7)
[2021-12-31 05:31] LABS: D Dimer 0.71 ug/mIFEU (0-0.59)
[2021-12-31] MEDS: aspirin 81 mg Chew Tablet 324 MG PO (05:48)
--- NOTE | 2021-12-31 05:48 | USCV_ITS ---
Martinez Jordan Age: 61 Gender: M : 1960 Exam Date: 12/31/2021 06:39 Ordering Phys: Hal Posey MD Technologist: TRISHA Exam Location: [facility] [place] Indication: CHEST PAIN BP: 123 / 59 HR: 68 Rhythm: Sinus Technical Quality: Adequate MEASUREMENTS (Male / Female) Normal Values 2D ECHO LV Diastolic Diameter PLAX 4.5 cm 4.2 - 5.9 / 3.9 - 5.3 cm LV Systolic Diameter PLAX 2.4 cm IVS Diastolic Thickness 1.4 cm 0.6 - 1.0 / 0.6 - 0.9 cm IVS Systolic Thickness 2.2 cm LVPW Diastolic Thickness 1.5 cm 0.6 - 1.0 / 0.6 - 0.9 cm LVPW Systolic Thickness 2.1 cm LVOT Diameter 2.0 cm LV Ejection Fraction 2D Teich 77.9 % LV Ejection Fraction MOD 2C 54.3 % LV Ejection Fraction 2C AL 53.9 % LA Diameter 3.9 cm LA Width 3.6 cm LA Height 3.9 cm RA Width 3.7 cm RA Height 2.9 cm Aorta at Sinotubular Diameter 2.7 cm M-MODE Aortic Annulus Diameter 3.5 cm LA Ao Ratio MM 1.2 MV E Point Septal Separation 0.3 cm DOPPLER AV Peak Velocity 121.0 cm/s LVOT Peak Velocity 104.3 cm/s AV Area Cont Eq vti 2.6 cm squared AV Area Cont Eq pk 2.7 cm squared MV Peak Velocity 131.0 cm/s MV Area PHT 4.6 cm squared Mitral E to A Ratio 1.4 MV E' Velocity 59.5 cm/s Mitral E to MV E' Ratio 11.1 Mitral E to LV E' Lateral Ratio 9.6 Mitral E to LV E' Septal Ratio 13.1 TR Peak Velocity 147.3 cm/s TR Peak Gradient 8.7 mmHg TR Mean Velocity 107.7 cm/s TR Mean Gradient 4.9 mmHg TR Velocity Time Integral 33.6 cm TV Peak E Velocity 58.0 cm/s PV Peak Velocity 119.0 cm/s RV Acceleration Time 0.1 s RV Ejection Time 0.4 s RV AcT/ET 0.3 FINDINGS Left Ventricle Normal left ventricular size, systolic function and wall thickness. Left ventricular ejection fraction is estimated at 55 %. There is hypokinesis of basal to apical inferior trimble. Normal diastolic function. Right Ventricle Normal right ventricular size and systolic function. RVSP could not be calculated due to incomplete tricuspid regurgitation velocity profile. Right Atrium Normal right atrial size. Left Atrium Normal left atrial size. Mitral Valve Structurally normal mitral valve. No mitral valve stenosis. Mild mitral valve regurgitation. Aortic Valve Structurally normal trileaflet aortic valve. No aortic valve stenosis. No aortic valve regurgitation. Tricuspid Valve Structurally normal tricuspid valve. Trace to mild tricuspid valve regurgitation. Pulmonic Valve Structurally normal pulmonic valve. No pulmonary valve stenosis. Trace to mild pulmonary valve regurgitation. Pericardium No pericardial effusion. Aorta Normal size aortic root and proximal ascending aorta. CONCLUSIONS 1. Normal left ventricular size, systolic function and wall thickness. Left ventricular ejection fraction is estimated at 55 %. There is hypokinesis of basal to apical inferior trimble. Normal diastolic function. 2. Normal right ventricular size and systolic function. 3. Mild mitral valve regurgitation. 4. No prior similar studies to compare. Marija Rossi MD (Electronically Signed) Final Date: 31 December 2021 09:17 Amended: 31 December 2021 12:23 C
[2021-12-31] MEDS: enoxaparin 100 mg/mL Syringe SUBCUT (05:49)
--- NOTE | 2021-12-31 05:50 | P.HP_ITS ---
Providers/Chief Complaint Primary Care Provider: Tejas Wu DO Chief Complaint: CP/COUGH History of Present Illness Jordan Henriquez is a 61 year old male with past medical history of hypertension , diabetes , chronic tobacco chewing, came in with chief complaint of left-sided arm pain with associated substernal chest pain, going on for the last few months associated with exertion, relieved with rest, last night he had similar episode but more severe in intensity, at rest, associated with significant shortness of breath, diaphoresis. For which he called the EMS, chest pain was relieved with sublingual nitro. Denies any Nausea, vomiting dizziness, headache, fever. Upon arrival in the ER he was worked up for above-mentioned complaint. Pertinent imaging studies: X-ray chest: No acute infiltrates, no pulmonary vascular congestion. EKG: ST depression in lateral leads Pertinent labs: WBC 9.5, H&H 9.9/ 34 PLT : 644 , Serum sodium 135, serum 5.1, BUN serum creatinine 19/1.3 D-dimer:0.71 Troponin baseline: 167 , proBNP: 928 Covid PCR pending Patient received therapeutic dose of Lovenox in the ER as well as aspirin 324 mg p.o. one-time dose Review of Systems General: Reports: 10 or more systems reviewed and unremarkable except in HPI and below Const: Denies: fever(s), chills, body aches or change in appetite Card: Denies: palpitations, edema, swelling of feet/ankles, orthopnea or leg pain with exertion Resp: Denies: productive cough, wheezing or pain on inspiration GI: Denies: abdominal pain, nausea, vomiting, diarrhea or constipation : Denies: flank pain or difficulty urinating Musc: Denies: back pain, extremity pain or extremity swelling Neuro: Denies: headache(s), difficulty walking or confusion Medications/Allergies Home Medications Medication Instructions Recorded Confirmed Last Taken Type atorvastatin 40 mg tablet 40 mg PO DAILY 02/12/20 02/10/21 10/15/20 History glipizide 10 mg tablet, extended 10 mg PO DAILY 02/12/20 02/10/21 10/16/20 History release 24 hr lisinopril 5 mg tablet 5 mg PO DAILY 02/12/20 02/10/21 10/16/20 History metformin 1,000 mg tablet 1,000 mg PO BID 02/12/20 02/10/2110/16/20 History sildenafil 100 mg tablet 100 mg PO DAILY PRN #20 tab 02/16/20 02/10/21 Unknown Rx hydrocodone 5 mg-acetaminophen 325 1 tab PO Q4H PRN 3 Days #12 tab 12/12/20 02/10/21 Unknown Rx mg tablet potassium citrate 15 mEq (1,620 15 meq PO BID #60 tab 12/12/20 02/10/21 Unknown Rx mg) tablet,extended release tamsulosin 0.4 mg capsule (Flomax) 0.4 mg PO DAILY #30 cap 12/12/20 02/10/21 Unknown Rx Allergies Allergy/AdvReac Type Severity Reaction Status Date / Time adhesive AdvReac Unknown Verified 12/31/21 04:16 PFSH Acute PFSH: Medical History (Updated 12/31/21 @ 05:51 by Hal Posey MD) Dental caries Diabetes mellitus Erectile dysfunction due to diseases classified elsewhere Hypertension Urolithiasis Surgical History H/O neck surgery H/O repair of rotator cuff History of ankle surgery History of surgery on arm Social History Smoking and tobacco status: light tobacco smoker smokeless tobacco Alcohol intake: unknown Adopted: No Caregiver/support person: No Lives independently: No Household members: spouse Marital status: Current occupational status: disabled History of recent travel: No Current gender identity: Male Vitals/I&O/Wt Last Vital Signs Pulse 80 12/31/21 05:16 Resp 18 12/31/21 05:16 BP 123/59 12/31/21 05:16 Pulse Ox 92 12/31/21 05:16 Weight last 48 hrs Weight 97.522 kg Physical Exam Const: COMMON NORMALS: patient oriented x3 HENMT: COMMON NORMALS: normocephalic, atraumatic, hearing grossly normal bilaterally and external ears normal HEAD & SCALP: normocephalic and atraumatic EXTERNAL EAR: Yes external ears normal Eye: COMMON NORMALS: no scleral icterus GENERAL EYE: appearance normal, both eyes and all related structures Chest: COMMONS NORMALS: normal inspection of the chest and normal palpation of entire chest wall CHEST: Yes Symmetrical chest wall rise Resp: COMMON NORMALS: normal respiratory effort, No retractions, No use of accessory muscles and clear to auscultation bilaterally EFFORT & INSPECTION: Yes symmetric chest movement AUSCULTATION: clear to auscultation bilaterally Cardio: COMMON NORMALS: regular rate, regular rhythm, S1 normal heart sound present, S2 normal heart sound present, No gallops present (Cardio), No murmurs present (Cardio), No rub (Cardio) and Peripheral pulses 2+ throughout RATE: regular rate RHYTHM: regular rhythm HEART SOUNDS: S1 normal heart sound present and S2 normal heart sound present PERIPHERAL PULSES: Peripheral pulses 2+ throughout GI: COMMON NORMALS: Normal to inspection, nondistended, normoactive bowel sounds present, Soft to palpation, non-tender, No hepatosplenomegaly present and no masses AUSCULTATION: Yes normoactive bowel sounds PALPATION: Yes Soft to palpation and Yes No hepatosplenomegaly present RECTAL EXAM: Yes deferred Extremity: COMMON NORMALS: no clubbing, cyanosis or edema and no pedal edema Neuro: COMMON NORMALS: patient oriented x3 Data : 12/31/21 04:10 12/31/21 04:10 A&P Assessment and plan (1) Non-ST elevation [place] (NSTEMI): Status: Acute (2) Hypertension: Status: Acute (3) Diabetes mellitus: Status: Acute Plan Assessment #NSTEMI likely type I, cannot conclusively rule out possible type II NSTEMI. #Hypertension #Diabetes # CKD stage III Plan Follow 2D echo Monitor serial troponin trend Monitor EKG Telemetry On therapeutic anticoagulation with Lovenox Continue aspirin statin, sublingual nitro as needed. N.p.o. for possible CAG plus minus PCI Monitor BMP Avoid nephrotoxic's Cardiology consulted by ER Continue sliding scale insulin Monitor fingerstick glucose CODE STATUS: Full code DVT prophylaxis: Not needed on therapeutic Lovenox Attestations Medical Necessity Statement*: Patient needs to be in the hospital for management of NSTEMI. Anticipated length of stay greater than 2 midnights. Time Spent in Patient Care: Greater than 35 minutes Coding Level of Care Code Acute Food Safety Scientist for Chg Fwd Exam Comprehensive Diagnoses Non-ST elevation [place] (NSTEMI) I21.4 Hypertension I10 Diabetes mellitus E11.9
--- NOTE | 2021-12-31 06:04 | ECG_ITS ---
[facility] Test Date: 2021-12-31 Pat Name: Jordan Henriquez Department: Room: 105 Gender: Male Neckties Painter: : 1960 Requested By: Raza Dacosta Order Number: [id number] Avi MD: David Rojas M.D. Measurements Intervals [place] Rate: 58 P: 45 WI: 223 QRS: 40 QRSD: 88 T: 43 QT: 425 QTc: 419 Interpretive Statements SINUS BRADYCARDIA WITH FIRST DEGREE AV BLOCK SEPTAL MYOCARDIAL INFARCTION , PROBABLY OLD [40+ ms Q WAVE IN V1/V2] Compared to ECG 12/31/2021 04:15:17 First degree AV block now present Myocardial infarct finding now present Sinus rhythm no longer present ST (T wave) deviation no longer present Electronically Signed On 12-31-2021 18:34:28 BOMBSIGHT SPECIALIST by David Rojas M.D. [id number]
[2021-12-31 07:09] LABS: Adenovirus Not Detected (NOT DETECT); Chlamydia Pneumoniae Not Detected (NOT DETECT); Coronavirus 229E,HKU1,NL63,OC4 Not Detected (NOT DETECT); Human Metapneumovirus Not Detected (NOT DETECT); Human Rhinovirus/Enterovirus Not Detected (NOT DETECT); Influenza A Not Detected (NOT DETECT); Influenza A H1 Not Detected (NOT DETECT); Influenza A H1-2009 Not Detected (NOT DETECT); Influenza A H3 Not Detected (NOT DETECT); Influenza B Not Detected (NOT DETECT); Mycoplasma Pneumoniae Not Detected (NOT DETECT); Parainfluenza Virus Type 1 Not Detected (NOT DETECT); Parainfluenza Virus Type 2 Not Detected (NOT DETECT); Parainfluenza Virus Type 3 Not Detected (NOT DETECT); Parainfluenza Virus Type 4 Not Detected (NOT DETECT); Respiratory Syncytial Virus A Not Detected (NOT DETECT); Respiratory Syncytial Virus B Not Detected (NOT DETECT); SARS-COV-2 Not Detected (NOT DETECT)
[2021-12-31 07:31] LABS: Troponin 5 2HR 340.5 ng/L (0-15); Troponin 5 2HR Delta 173.5 ABS# (0-10)
--- NOTE | 2021-12-31 08:00 | P.CONIM_ITS ---
Providers/Reason For Consult Consulting Physician/Specialty*: David Rojas MD/ Cardiology Reason for Consult*: NSTEMI Requesting Physician: Dr Dacosta Attending Physician: Kev Greene MD Primary Care Provider: Tejas Wu DO History of Present Illness History of Present Illness Jordan Herniquez is a 61 year old male with past medical history of hypertension, diabetes, tobacco abuse presented with several hours of substernal chest pain and radiation to left arm. According to patient this has been going on and off for several months. Mostly exertional. However last night he became more concerned as symptoms were not resolving. He also had significant shortness of breath and diaphoresis with it. His initial troponin was 167 that trended up to [address] depressions in lateral leads. He denies prior history of coronary artery disease. Review of Systems General: Reports: 10 or more systems reviewed and unremarkable except in HPI and below Const: Denies: fever(s), chills, body aches or change in appetite Card: Reports: chest pain; Denies: palpitations, edema, swelling of feet/ankles, orthopnea or leg pain with exertion Resp: Denies: productive cough, wheezing or pain on inspiration GI: Denies: abdominal pain, nausea, vomiting, diarrhea or constipation : Denies: flank pain or difficulty urinating Musc: Denies: back pain, extremity pain or extremity swelling Neuro: Denies: headache(s), difficulty walking or confusion Medications/Allergies Home Medications Medication Instructions Recorded Confirmed Last Taken Type atorvastatin 40 mg tablet 40 mg PO DAILY 02/12/20 02/10/21 10/15/20 History glipizide 10 mg tablet, extended 10 mg PO DAILY 02/12/20 02/10/21 10/16/20 History release 24 hr lisinopril 5 mg tablet 5 mg PO DAILY 02/12/20 02/10/21 10/16/20 History metformin 1,000 mg tablet 1,000 mg PO BID 02/12/20 02/10/21 10/16/20 History sildenafil 100 mg tablet 100 mg PO DAILY PRN #20 tab 02/16/20 02/10/21 Unknown Rx hydrocodone 5 mg-acetaminophen 325 1 tab PO Q4H PRN 3 Days #12 tab 12/12/20 02/10/21 Unknown Rx mg tablet potassium citrate 15 mEq (1,620 15 meq PO BID #60 tab 12/12/20 02/10/21 Unknown Rx mg) tablet,extended release Allergies Allergy/AdvReac Type Severity Reaction Status Date / Time adhesive AdvReac Unknown Verified 12/31/21 04:16 PFSH Acute PFSH: Medical History Dental caries Diabetes mellitus Erectile dysfunction due to diseases classified elsewhere Hypertension Urolithiasis Surgical History H/O neck surgery H/O repair of rotator cuff History of ankle surgery History of surgery on arm Social History Smoking and tobacco status: light tobacco smoker smokeless tobacco Alcohol intake: unknown Adopted: No Caregiver/support person: No Lives independently: No Household members: spouse Marital status: Current occupational status: disabled History of recent travel: No Current gender identity: Male Vitals/I&O/Wt Last Vital Signs Pulse 80 12/31/21 05:16 Resp 18 12/31/21 05:16 BP 123/59 12/31/21 05:16 Pulse Ox 92 12/31/21 05:16 Weight last 48 hrs Weight 215 lb Physical Exam Narrative: EXAM NARRATIVE: GENERAL: Patient is alert, awake and oriented x3. [] NECK: No jugular vein distension. [] HEENT: No cyanosis. No icterus. No pallor. [] HEART: Regular S1 and S2. No murmur, rub or gallop. [] LUNGS: Clear to auscultate bilaterally. [] ABDOMEN: Soft, nontender and nondistended. Positive bowel sounds. No guarding, rebound or tenderness. [] CENTRAL NERVOUS SYSTEM: Grossly nonfocal. [] EXTREMITIES: Lower extremities with no edema bilaterally. Pulses palpable in the lower extremities, both dorsalis pedis and posterior tibial. [] Data : 12/31/21 04:10 12/31/21 04:10 A&P Assessment and plan (1) Non-ST elevation [place] (NSTEMI): Status: Acute (2) Diabetes mellitus: Status: Acute (3) Hypertension: Status: Acute Plan Patient has presented with non-ST elevation FL. Troponins have significantly trended up. We will plan on coronary angiogram with possible percutaneous coronary intervention. Risks and benefits of the procedure have been discussed. Patient understands the risks and benefits and wants to proceed with the procedure. Continue aspirin. Hold off on Plavix for now. Continue Lovenox. Echocardiogram ordered. N.p.o. for now. Thank you for involving us with care of this patient. We will continue to follow. Please call with questions. Coding Level of Care Code Acute [employer] [place] for Shauna Guadarrama Diagnoses Non-ST elevation [place] (NSTEMI) I21.4 Diabetes mellitus E11.9 Hypertension I10
[2021-12-31] MEDS: sodium chloride 0.9% 1,000 ML 75 ML IV (08:01)
[2021-12-31 08:09] LABS: Glucose Point of Care 248 mg/dL (70-110)
[2021-12-31] MEDS: insulin lispro 100 unit/1 mL SUBCUT ×2 (09:05→18:46)
[2021-12-31] MEDS: atorvastatin 40 mg Tablet PO (09:06)
--- NOTE | 2021-12-31 09:13 | PC.NURSE ---
DOCTOR AT THE BEDSIDE- STATES HE WILL READY THE CREW AND THE PATIENT WILL GO FOR A HEART CATH IN A FEW MINUTES, PATIENT REFUSED FLOMAX.
--- NOTE | 2021-12-31 09:14 | XACV_ITS ---
Exam Room: [facility] Ht: 178 cm Wt: 98 kg BSA: 2.22 m2 Gender: Male : 1960 Any Known Allergies: Other Exam Priority: Routine Procedure(s): Procedure Description: Diagnostic procedure Procedure Description: Coronary IVUS Procedure Description: Coronary Angiography Diagnostic Cath Status: Urgent Diagnostic Findings * Left Main: obstructive 60% stenosis, LEIDY: 3 flow. * Proximal Circumflex: moderate to severe 60-70% stenosis, LEIDY: 3 flow. * Mid Left Anterior Descending: moderate 50% stenosis, LEIDY: 3 flow. * Proximal Right Coronary Artery: severe 90% stenosis, LEIDY: 3 flow. * Mid Right Coronary Artery: severe 90% stenosis, LEIDY: 3 flow. * Distal Right Coronary Artery: severe 90% stenosis, LEIDY: 3 flow. * Distal Right Coronary Artery to Right Posterior AV: significant 80% stenosis, LEIDY: 3 flow. * Coronary angiography shows right dominance. Interventional Findings * Procedure Detail: We engaged left renal artery with XB 3.5 guide catheter. A 0.014 run-through guidewire was used to cross the left main stenosis. IVUS was used to measure minimal luminal area. MLA of distal left main artery was 4.9 mm2 and was significant. At this time we removed the guide wire and guide catheter. TR band was used to obtain hemostasis. 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 Conclusions 1. Severe multivessel coronary artery disease including 2. multiple lesions of 3. RCA and severe distal left main artery stenosis.. 4. Left main stenosis confirmed with IVUS with MLA of 4.9 mm2. Recommendations * We will consult Dr. Shell for CABG. * Continue aspirin. Hold Plavix until patient is seen by CT surgery. * Continue anticoagulation at this time. Interventional RX Recommendation: CABG Diagnostic RX Recommendation: CABG Anticoagulation: Heparin Pressures Phase:Rest AO : 121 / 61 ( 82 ) @ 7:41:00 AM 109 / 64 ( 84 ) @ 7:42:00 AM 119 / 69 ( 92 ) @ 7:44:00 AM 126 / 61 ( 89 ) @ 7:51:00 AM 116 / 56 ( 81 ) @ 7:52:00 AM 136 / 65 ( 94 ) @ 8:00:00 AM 135 / 65 ( 94 ) @ 8:00:00 AM Clinical Evaluation EBL: 5mL-10mL Procedural Details Procedure Consent Obtained. Pre-Procedure Time Out. Identified patient by full name and date of as verbalized by the patient/guarantor. Does the consent match the physician's order: Yes. Accurate & Complete Informed Consent: Yes. Inpatient/Outpatient History & Physical on Chart: Yes. If H&P is completed, is and addenduem needed: Yes; If yes, is the addendum complete: N/A. Visualize and Verify Site with Patient/Guarantor: N/A. Relevant Radiology Images available: Yes. Pre-op teaching completed and patient verbalized understanding. The risks, benefits, and alternatives of sedation and/or procedure were discussed by physician. The patient agrees to continue. Procedure started. [facility] Clinical Fraility Score: 4: Vulnerable. Pawn Broker Indications: ACS > 24 hours. Chest Pain Symptom Assessment: Atypical Angina. Correct patient, site and procedure confirmed by cath team. Current diagnosis: NSTEMI. PERRLA. Strong, equal hand launch leader bilaterally. Lungs clear x 5 lobes. A 18 gauge IV was started in the left anticubital using aseptic technique. IV Fluids: 0.9% NaCl at KVO. 0 mL infused prior to experimental machining lab manager. Pre Procedural Pulses: bilateral dorsalis pedis was 2+. Oxygen started at 4liters/min via simple mask. bilateral groins was prepped with chloroprep then draped in the usual sterile fashion. right radial was prepped with chloroprep then draped in the usual sterile fashion. Physician notified. Baseline sample Acquired. HR: 0 BPM. Current Diagnosis : NSTEMI. Physician arrived. Physician scrubbed in. Immediate Pre-Procedure Time Out. Correct Patient: Yes; Correct Procedure: Yes; Correct Site: Yes; Correct Patient Position: Yes; Correct Supplies: Yes; Dried Flammable Prep: Yes; Blood Products Available: N/A;. Lidocaine 1% infiltrated to the right radial. Arterial access obtained. A 5 trinidadian TIG catheter in over wire. Multiple views taken of left coronary artery. Catheter redirected to the RCA. Multiple views taken of right coronary artery. Dr. Shell called for a consult. Physician review of cine films. Catheter removed over the standard wire. 6 trinidadian XB 3 guide catheter was inserted over the wire. Runthrough guidewire was advanced through the guide catheter to lesion in the LM/prox LAD. IVUS catheter inserted OTW and advanced to the left main. IVUS measurements obtained. Catheter and wire out. Guide catheter out. A TR Band was successful obtaining hemostatsis at the Right Radial artery insertion site. Sheath(s) sutured into position with 2-0 silk and sterile 4x4's and Op-site applied over the site. No oozing or signs and symptoms of hematoma noted. Post Procedure: Pulses reassessed and unchanged. PERRLA. Strong, equal hand launch leader bilaterally. No VTE prophylaxis required. Medication's Wasted: Lidocaine 1% = 18 mL. Medication's Wasted: Heparin = 1000 units. Medication's Wasted: Nitro = 49.8 mg. Total IV fluids: 49 mL. Contrast type used: Omnipaque 300 mg/mL, 150 mL bottle. Complications: None. Estimated blood loss: 5mL-10mL. Responsiveness - Normal response to verbal stimuli; alert and oriented, PERRLA. Airway - Unaffected, no intervention required; spontaneous ventilation. Circulation: W/N/L, pulses unchanged. Nausea/Vomiting: No. Procedure completed. Vital chart was stopped. Patient transferred by wheelchair to CPRU. Access Site Site: Right Radial artery Sheath Size: 6 Fr Hemostasis Method: TR Band Hemostasis Success: Successful Procedure Medications Start: 9:30 AM Stop: 9:30 AM Medication: Versed Amount: 1 mg Route: I.V. Start: 9:30 AM Stop: 9:30 AM Medication: Fentanyl Amount: 50 mcg Route: I.V. Start: 9:37 AM Stop: 9:37 AM Medication: Versed Amount: 1 mg Route: I.V. Start: 9:37 AM Stop: 9:37 AM Medication: Fentanyl Amount: 50 mcg Route: I.V. Start: 9:38 AM Stop: 9:38 AM Medication: Nitrogylcerin Amount: 200 mcg Route: I.A. Start: 9:42 AM Stop: 9:42 AM Medication: Heparin Amount: 5000 units Route: I.V. I, the attending physician, have reviewed and verified all procedure medications. Yes, all medications given per verbal order History/Risk Factors Hypertension: Yes Dyslipidemia: Yes Peripheral Arterial Disease (PAD): No Myocardial Infarction (NC): No Obesity: No Renal Disease: No Prior Interventions PCI: No CABG: No Valve Surgery: No Report Signatures Finalized by David Rojas MD on 01/16/2022 03:57 PM
--- NOTE | 2021-12-31 09:17 | PC.NURSE ---
CONFIDENTIAL SECRETARY STAFF AT THE BEDSIDE- THIS RN ATTEMPTED TO GIVE REPORT- ADVISED 'WE GOT THIS' PER CONFIDENTIAL SECRETARY STAFF
--- NOTE | 2021-12-31 09:31 | W.PM.OPSUD ---
Surgery/Procedure H&P Update DATE OF PROCEDURE: December 31, 2021 DATE H&P PERFORMED: 12/31/21 H&P UPDATE INFORMATION: I have reviewed H&P completed within last 30 days, I have examined patient prior to procedure and No changes to prior documentation PREOP DIAGNOSIS: NSTEMI PRIMARY INDICATION FOR PROCEDURE: NSTEMI PLANNED PROCEDURE: Left heart cath with possible percutaneous coronary intervention PATIENT REASSESSED PRIOR TO SEDATION, WITH NO CHANGE NOTED: Yes PHYSICAL EXAM: alert, oriented x 3, clear to auscultation bilaterally and regular rate & rhythm AIRWAY EVAL/ANESTHESIA PLAN: normal airway, ASA III, Monitored Anesthesia, Local Anesthesia, Risks, benefits & alternatives of sedation and/or procedure discussed and Patient agrees to continue as planned
--- NOTE | 2021-12-31 10:04 | ECG_ITS ---
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 Measurements Intervals Jackson Rate: 84 P: 47 DE: 200 QRS: 66 QRSD: 102 T: 8 QT: 363 QTc: 432 Interpretive Statements SINUS RHYTHM MODERATE ST DEPRESSION [0.05+ mV ST DEPRESSION] No previous ECG available for comparison Electronically Signed On 12-31-2021 18:35:52 INSURANCE BILLING SPECIALIST by David Rojas M.D. [id number]
--- NOTE | 2021-12-31 10:10 | PC.NURSE ---
Received patient from worm farm laborer at this time to CPRU room 4 for extended care times while waiting for bed assignment. Pt arrived drowsy but oriented and arouses to verbal stimuli. Pt placed on reinforcing bar setter. Denies pain. TR band to right radial artery containing 13 ml air. Pt given restrictions and education regarding TR band. at bedside.
--- NOTE | 2021-12-31 11:08 | PC.NURSE ---
Bed assignment U 105 received. Attempted to call report via phone. Floor nurse available to take bedside report.
--- NOTE | 2021-12-31 11:15 | PM.MISC ---
Miscellaneous Note Purpose of Documentation: PROCEDURE NOTE Note: LEFT HEART CATH FINDING: Left main artery: mid to distal left main artery has 50-60% stenosis. IVUS confirmed stenosis to be significant with MLA of 4.9cm2. LAD: Has mild diffuse disease. LCx: Mild to moderate diffuse disease. No severe stenosis. RCA: Severe serial lesions. Distal RCA before bifurcation has 80% stenosis. Proximal RCA has 80% stenosis. Mid to distal vessel has 80-90% Recommendation: CT surgery consult for CABG evaluation. Dr Shell notified and will see patient Continue aspirin and Lovenox. No plavix in anticipation of surgery
--- NOTE | 2021-12-31 11:55 | PM.CONSULT ---
Providers/Reason For Consult Consulting Physician/Specialty*: Dr. Shell/cardiothoracic surgery Reason for Consult*: Coronary artery disease with left main stenosis and admission for non-STEMI Requesting Physician: Dr. Rojas/cardiology Attending Physician: David Rojas M.D Primary Care Provider: Tejas Wu DO History of Present Illness History of Present Illness Jordan Henriquez is a 61 year old diabetic male who was admitted to [facility] after presenting to the emergency department with complaints of left-sided arm discomfort and substernal chest pain which has been intermittent for the past few months and usually associated with exertion and relieved with rest. On the night of presentation he had more severe intensity than usual which did occur at rest and was associated with dyspnea and diaphoresis. He was transported to the emergency department through the EMS service with chest pain being relieved after receiving sublingual nitroglycerin. Presenting EKG revealed ST depressions in the lateral leads, chest x-ray was clear, though his troponin at baseline was 167 and did elevate upon follow-up. His delta troponin was substantially elevated at 173. He has been treated per chest pain protocol and has remained pain-free. He was evaluated by Dr. Rojas, and with a high index of suspicion, left heart catheterization was completed this morning. The study reveals a 60% left main stenosis which has been confirmed through IVUS as well as multiple serial lesions of the RCA between 80 and 90% extending down to the bifurcation. LAD and circumflex have noncritical disease. Transthoracic echocardiogram completed earlier today reveals preserved LV function with hypokinesia of the basal to apical inferior wall. Normal right ventricular size and systolic function. Mild mitral valve regurgitation. Currently, Mr. Henriquez is resting comfortably in the cardiac stepdown unit. He has received aspirin and Lovenox, though Plavix has been held pending surgical evaluation to consider the potential for surgical revascularization. I have personally reviewed the admitting chest x-ray and left heart catheterization recently performed by Dr. Rojas. I have conferred with my colleague by phone as to the angiographic findings and the results of the IVUS. Mr. Henriquez states he is does not use tobacco. Review of Systems Const: Denies: fever(s) or chills ENMT: Denies: throat pain Card: Reports: chest pain, dyspnea on exertion and other (Diaphoresis with chest pain. Chest pain has become more intense and more f); Denies: syncope GI: Denies: abdominal pain, nausea, vomiting, hematemesis or coffee ground emesis Musc: Reports: extremity pain (Left arm pain with chest pain, though otherwise pain-free with motion); Denies: neck pain Skin/Breast: Denies: rash Neuro: Denies: headache(s), weakness in extremities or difficulty walking Psych: Denies: anxiety or depression Medications/Allergies Home Medications Medication Instructions Recorded Confirmed Last Taken Type atorvastatin 40 mg tablet 40 mg PO DAILY 02/12/20 12/31/21 12/30/21 History glipizide 10 mg tablet, extended 10 mg PO DAILY 02/12/20 12/31/21 12/30/21 History release 24 hr lisinopril 5 mg tablet 5 mg PO DAILY 02/12/20 12/31/21 12/30/21 History metformin 1,000 mg tablet 1,000 mg PO BID 02/12/20 12/31/21 12/30/21 History sildenafil 100 mg tablet 100 mg PO DAILY PRN #20 tab 02/16/20 12/31/21 Unknown Rx hydrocodone 5 mg-acetaminophen 325 1 tab PO Q4H PRN 3 Days #12 tab 12/12/20 12/31/21 Unknown Rx mg tablet potassium citrate 15 mEq (1,620 15 meq PO BID #60 tab 12/12/20 12/31/21 12/30/21 Rx mg) tablet,extended release Allergies Allergy/AdvReac Type Severity Reaction Status Date / Time adhesive AdvReac Unknown Verified 12/31/21 04:16 Current Medications Generic Name Dose Route Start Last Admin Trade Name Freq PRN Reason Stop Dose Admin Atorvastatin Calcium 40 mg 12/31/21 09:00 12/31/21 09:06 Atorvastatin 40 Mg Tablet PO 40 mg DAILY MAGALY Administration Sodium Chloride 1,000 mls @ 75 mls/hr 12/31/21 06:45 12/31/21 08:01 Sodium Chloride 0.9% IV 75 mls/hr .[id number] MAGALY Administration Insulin Human Lispro 0 unit 12/31/21 08:00 12/31/21 09:05 Insulin Lispro 100 Unit/1 Ml SUBCUT 6 unit WM&BEDTIME MAGALY Administration Protocol Tamsulosin HCl 0.4 mg 12/31/21 09:00 12/31/21 09:07 Tamsulosin 0.4 Mg Capsule PO Not Given DAILY MAGALY PFSH Acute PFSH: Medical History Dental caries Diabetes mellitus Erectile dysfunction due to diseases classified elsewhere Hypertension Urolithiasis Surgical History H/O neck surgery H/O repair of rotator cuff History of ankle surgery History of surgery on arm Social History Smoking and tobacco status: light tobacco smoker smokeless tobacco Alcohol intake: unknown Adopted: No Caregiver/support person: No Lives independently: No Household members: spouse Marital status: Current occupational status: disabled History of recent travel: No Current gender identity: Male Vitals/I&O/Wt Last Vital Signs Pulse 62 12/31/21 11:01 Resp 16 12/31/21 11:01 BP 126/74 12/31/21 11:01 Pulse Ox 95 12/31/21 10:46 Weight last 48 hrs Weight 215 lb Physical Exam Const: COMMON NORMALS: patient oriented x3 HENMT: COMMON NORMALS: normocephalic, hearing grossly normal bilaterally and external ears normal HEAD & SCALP: normocephalic EXTERNAL EAR: Yes external ears normal Eye: COMMON NORMALS: Equal, round and reactive pupils present, EOMs intact bilaterally and conjunctivae normal CONJUNCTIVA: Yes conjunctivae normal PUPIL: Yes Equal, round and reactive pupils present Neck/C-Spine: COMMON NORMALS: supple; negative for full ROM Chest: COMMONS NORMALS: normal inspection of the chest and normal palpation of entire chest wall Resp: COMMON NORMALS: normal respiratory effort, No use of accessory muscles and clear to auscultation bilaterally AUSCULTATION: clear to auscultation bilaterally Cardio: COMMON NORMALS: regular rate, regular rhythm, S1 normal heart sound present and No murmurs present (Cardio) RATE: regular rate RHYTHM: regular rhythm HEART SOUNDS: S1 normal heart sound present GI: COMMON NORMALS: Normal to inspection, nondistended, normoactive bowel sounds present INSPECTION: Yes central obesity Extremity: COMMON NORMALS: normal to inspection and no clubbing, cyanosis or edema OTHER: Dressing in place at right wrist from catheterization. Needlesticks in right groin. Neuro: COMMON NORMALS: patient oriented x3, moves all extremities, no focal motor deficits and no sensory deficits noted Psych: COMMON NORMALS: mental status grossly normal, Normal thought process present, cooperative, normal affect and speech normal SPEECH: Yes normal speech THOUGHT PROCESS: Normal thought process present Skin: COMMON NORMALS: no rashes or lesions noted GENERAL SKIN EXAM: no rashes or lesions noted Data : 12/31/21 04:10 12/31/21 04:10 CXR: My impression: Admitting chest x-ray reveals accentuated interstitial markings though no cade infiltrate or effusion. Cardiac silhouette is unremarkable. Other Imaging: My impression: Left heart catheterization reveals multisegment disease of the RCA extending down to the bifurcation. There is mid distal tapering of the left main which visually appears to represent 50 to 60% stenosis and was confirmed by IVUS to be significant. A&P Assessment and plan (1) Stenosis of left main coronary artery: Recent admission for non-STEMI with left heart catheterization confirming left main coronary artery stenosis and multisegment disease of the RCA. Preserved LV function. Currently pain-free. Discussed at length with Mr. Henriquez about his hospitalization and non-STEMI. I discussed the anatomy that was discovered the time of his left heart catheterization by Dr. Rojas and the recommendation to consider surgical revascularization for long-term durability. He stated to me, though he did not stated to Dr. Rojas previously, that he plans to move with his to [place] within the month, and is actually scheduled to travel there on January 08 to review property. Apparently, his has some chronic medical conditions for which they will be seeking for continued care in [place]. He was not agreeable to any type of surgical option for his coronary artery disease, despite my conversation with him about the potential risk. At this time, he was quite adamant for medical management only. Perhaps, after conversation with Dr. Rojas, he might be agreeable to consider percutaneous therapy for his RCA disease. I offered to discuss matters further with him or to wait for arrival of his to continue conversations, though it was fairly clear that he would not be agreeable to a surgical option. He stated he would consider this once he had settled in [place]. I will confer with my colleague Dr. Rojas, and we will be available as needed should Mr. Henriquez change his mind about surgery or should he wish to discuss further. Our tentative plans had been to allow for recovery from his recent non-STEMI with surgery to occur on January 05. At the completion of my visit and conversation with him, he remained steadfast in his position to not consider surgery at this time until after his moved to [place]. Status: Acute Consult Attestations Medical Necessity Statement: Coronary artery disease involving left main coronary artery stenosis with recent non-STEMI Time Spent in Patient Care: 35 mins Coding Level of Care Code New Pt Acute Chip Unloader for Lakishag Fwd Patient Type New Medical Decision Making Moderate Complexity Diagnoses Stenosis of left main coronary artery I25.10 Time Spent (min) 35
--- NOTE | 2021-12-31 20:32 | PC.NURSE ---
Received report from ROHINI Carter. Patient resting in bed. S/p C with right radial access. Dressing in place to right wrist remains c,d,i with no s/s of bleeding or hematoma formation observed. Instructed patient on use of insulin for blood sugar control. Patient verbalized understanding but stated, I don't want to get started on insulin. Patient ambulated in room without difficulty. On room air. No distress observed. Will continue to monitor.
[2021-12-31 21:19] LABS: Glucose Point of Care 292 mg/dL (70-110)
--- NOTE | 2022-01-01 02:33 | PC.NURSE ---
Patient refused to wear telemetry during the night. Patient reports severe allergy to the adhesive in the electrodes. Observed bright red areas where electrodes were removed. Patient expressed thanks. No needs or complaints. Will continue to monitor.
[2022-01-01 03:43] LABS: Basophils # 0.1 10^3/uL (0.0-0.1); Basophils % 0.8 %; Eosinophils # 0.6 10^3/uL (0.0-0.8); Eosinophils % 6.4 %; Hematocrit 28.2 % (42.0-52.0); Hemoglobin 8.1 g/dL (11.7-16.6); Lymphocytes # 2.1 10^3/uL (0.8-4.8); Lymphocytes % 23.1 %; Mean Corpuscular HGB Conc 28.7 g/dL (30.0-36.0); Mean Corpuscular Hemoglobin 22.5 pg (28.0-34.0); Mean Corpuscular Volume 78.3 fl (80-94); Monocytes # 0.8 10^3/uL (0.2-0.9); Monocytes % 9.1 %; Neutrophils # 5.62 10^3/uL (1.8-7.7); Neutrophils % 60.4 %; Nucleated Red Blood Cells % 0 %; Platelet Count 512 10^3/cmm (130-400); Red Cell Distribution Width 15.8 % (12.1-15.1); White Blood Count 9.3 10^3/uL (4.0-10.0)
[2022-01-01 03:44] VITALS: BP 142/67; PULSE 67; RESP 24; TEMP 36.6; O2SAT 96
[2022-01-01 04:08] LABS: Potassium 4.3 mmol/L (3.5-5.1)
[2022-01-01 04:37] LABS: Blood Urea Nitrogen 14 mg/dL (8-23); Calcium 7.5 mg/dL (8.5-10.5); Glomerular Filtration Rate 67.6 mL/min (90-130); Glucose 228 mg/dL (65-115); Osmolality Calculated 290 mOsm/kg (285-295); Sodium 136 mmol/L (136-145)
[2022-01-01 04:38] LABS: Anion Gap 14.3 (5-19); Carbon Dioxide 21 mmol/L (22-29); Chloride 105 mmol/L (98-107); Magnesium 2.1 mg/dL (1.7-2.3)
[2022-01-01 05:46] VITALS: PULSE 69
[2022-01-01 06:36] LABS: Glucose Point of Care 238 mg/dL (70-110)
[2022-01-01 08:00] VITALS: BP 178/83; PULSE 70; RESP 15; TEMP 36.9; O2SAT 97
[2022-01-01] MEDS: insulin lispro 100 unit/1 mL SUBCUT ×2 (08:56→13:55)
[2022-01-01] MEDS: tamsulosin 0.4 mg Capsule PO (08:57)
[2022-01-01] MEDS: aspirin 81 mg EC Tablet PO (08:57)
[2022-01-01] MEDS: atorvastatin 40 mg Tablet PO (08:57)
[2022-01-01] MEDS: enoxaparin 40 mg/0.4 mL Syringe SUBCUT (08:57)
--- NOTE | 2022-01-01 09:36 | PC.CHAP ---
Pastoral Care Encounter/Spiritual Assessment Type of Contact [] Declined laborer vegetable farm visit [] Patient/Family/Request visit [] Outpatient visit [] Follow-up visit [] Physician referral [] Code/Alert [x] Routine visit [] Staff referral [] Actively dying [] Patient sleeping [] Family support [] [] Out of room [] Palliative care [] [] Receiving care in room [] Pre-surgical visit [] Trauma [] Long length of stay [] ICU visit [] Other: Relational/Emotional Strength [] Patient feels connected with others/family/visitors/staff [] Distress [] Loneliness/isolation [] Abandonment Spirituality of Patient [] Person of Vale [] Attends Moravian of their [place] [] Believes in Prayer [] Reads Bible or Taoism materials [] There are Spiritual issues to be addressed Lawn Care Specialist Interventions [x] Prayer [x] Active listening [x] Non-anxious presence [x] Spiritual/emotional support [] Crisis/trauma care [] Spiritual counseling [] Bereavement support [] Provided bereavement packet [] Provided Bible/devotional materials [] Provided toy/stuffed animal, coloring book to patient or family member [] Provided Communion [] Anointing/[place] [] Salvation [x] Completed spiritual assessment [] Other: Impact on Illness or Injury [] Angry [] Fearful [] Anxious [] Often cries [] Exhaustion [] Unable to work [] Unable to attend protestant [] Unable to walk/stand [] Unable to read [] Unable to drive [] Unable to eat/drink [] Unable to sleep [] Unable to be with family [] Patient intubated [] Other: Summary Time spent with patient
--- NOTE | 2022-01-01 09:40 | P.PN_ITS ---
Subjective Subjective: Interval history: Patient is overall doing well. Denies any chest pain. He underwent coronary angiogram yesterday that showed multiple severe lesions RCA that was likely c ulprit for non-ST elevation [place] and significant distal left main disease. CT surgery was consulted and Dr. Shell offered CABG to the patient however patient wants to be medically treated at this time. Vitals/I&O/Wt Last Vital Signs Temp 98.5 F 01/01/22 08:00 Pulse 70 01/01/22 08:00 Resp 15 01/01/22 08:00 BP 178/83 01/01/22 08:00 Pulse Ox 97 01/01/22 08:00 12/31/21 01/01/22 01/01/22 22:59 06:59 14:59 Intake Total 1177.5 / 1297.5 150 / 1447.5 Output Total 0 / 0 Balance 1177.5 / 1297.5 150 / 1447.5 0 / 0 Weight last 48 hrs Weight 215 lb Physical Exam Narrative: EXAM NARRATIVE: GENERAL: Patient is alert, awake and oriented x3. [] NECK: No jugular vein distension. [] HEENT: No cyanosis. No icterus. No pallor. [] HEART: Regular S1 and S2. No murmur, rub or gallop. [] LUNGS: Clear to auscultate bilaterally. [] ABDOMEN: Soft, nontender and nondistended. Positive bowel sounds. No guarding, rebound or tenderness. [] CENTRAL NERVOUS SYSTEM: Grossly nonfocal. [] EXTREMITIES: Lower extremities with no edema bilaterally. Pulses palpable in the lower extremities, both dorsalis pedis and posterior tibial. [] Data : 01/01/22 02:51 01/01/22 02:51 A&P Assessment and plan (1) Non-ST elevation [place] (NSTEMI): Status: Acute (2) Diabetes mellitus: Status: Acute (3) Hypertension: Status: Acute Plan Patient has presented with non-ST elevation [place]. Troponins significantly trended up. Coronary angiogram performed yesterday showed multiple severe lesions in the RCA was diffusely diseased was the culprit for non-ST elevation KY. Patient also had significant distal left main disease. CT surgery was consulted and Dr. Shell saw the patient offering him CABG. However patient wants to medically treated at this time. He says he is in process of moving to [place] does not want any invasive procedures. I discussed with him other options including performing PCI of RCA and having CABG done for left main disease at a later time. However patient is not interested at this time. I also spoke with patient's over the phone and discussed the same with her as well. They understand the risks of not undergoing revascularization at this time including recurrent KY and and want medical therapy only. Continue aspirin. Start Plavix as no plans for CABG in the near future. Continue Lovenox for today. Patient can be discharged later today once 48 hours of anticoagulation is completed. Continue atorvastatin. Start metoprolol 25 mg twice daily. Continue lisinopril and start Imdur 30 mg daily. Outpatient cardiology follow-up. Echo shows preserved LV systolic function with hypokinesis of inferior wall. Thank you for involving us with care of this patient. Please call with questions. Attestations Medical Necessity Statement*: Care expected to cross 2 midnights. Coding Level of Care Code Acute Utility Repairer for Shauna Guadarrama Diagnoses Non-ST elevation [place] (NSTEMI) I21.4 Diabetes mellitus E11.9 Hypertension I10
--- NOTE | 2022-01-01 10:54 | PC.NURSE ---
blood glucose 246
--- NOTE | 2022-01-01 11:10 | PM.DCS ---
Discharge Providers Date of Admission: 12/31/21 08:38 Date of Discharge: January 01, 2022 Attending Provider at Admission: Hal Posey MD Attending Provider at Discharge: Kev Greene MD Primary Care Provider: Tejas Wu DO Diagnoses at Discharge Discharge Diagnosis (1) Non-ST elevation CT (NSTEMI): Status: Acute (2) Diabetes mellitus: Status: Acute (3) Hypertension: Status: Acute Reason for Visit Reason for Visit: CP/COUGH Hospital Course Hospital Course Patient was admitted on 12/31 for management and evaluation of non-STEMI, on arrival he was having chest pain which was radiating towards his left arm, relieved with the treatment, associated with shortness of breath. EKG showed ST depression in lateral leads. Troponin 167. The study revealed a 60% left main stenosis which has been confirmed through IVUS as well as multiple serial lesions of the RCA between 80 and 90% extending down to the bifurcation.? LAD and circumflex have noncritical disease.? Transthoracic echocardiogram completed earlier today reveals preserved LV function with hypokinesia of the basal to apical inferior wall.? Normal right ventricular size and systolic function.? Mild mitral valve regurgitation. Dr. Shell saw him as well for CABG, patient was adamant that he would not agree for any procedure including intervention of RCA in the interim before CABG as he is in the midst of moving to [place]. This was discussed multiple times by 3 different MDs. His is honoring his wishes. He will be optimized on his ACS medications and discharged home today. Instructions were given in clear manner when to return to the ER as he is high risk for recurrent chest pain, occlusion of coronary vessels, before discharge he will get therapeutic dose of Lovenox. Meds to beds arranged. was updated by Dr. Rojas on 01/01/22. Physical Exam Narrative: EXAM NARRATIVE: Patient laying comfortably in his bed No chest pain S1, S2 Abdomen soft Awake and alert Saturating well on room air Nonfocal neuro exam EOMI, PERRLA Discharge Data Studies Completed and Pending Completed Studies During Hospitalization Category Date Time Status XR chest 1V portable [id number] Stat Exams 12/31/21 04:04 Completed US echo complete [CV. echo complete* [id number]] Routine Ultrasound 12/31/21 05:48 Completed Pending at discharge Category Date Time Status MANAGER NURSING HOME request for service Routine Exams 12/31/21 09:14 Taken Basic Metabolic Panel AM LABS Lab 01/02/22 04:00 Ordered Basic Metabolic Panel AM LABS Lab 01/03/22 04:00 Ordered Complete Blood Count w/Auto AM LABS Lab 01/02/22 04:00 Ordered Complete Blood Count w/Auto AM LABS Lab 01/03/22 04:00 Ordered Radiology Impressions Chest X-Ray 12/31/21 04:04 IMPRESSION: 1. Low lung volumes are present, accentuating pulmonary markings. 2. There are diffuse prominent interstitial markings are most pronounced at the lung bases. Findings may represent atelectasis and or mild edema. Diffuse pneumonia felt less likely. Laboratory Results WBC 9.3 10^3/uL (4.0-10.0) 01/01/22 02:51 RBC 3.60 10^6/uL (4.1-5.3) L 01/01/22 02:51 Hgb 8.1 g/dL (11.7-16.6) L 01/01/22 02:51 Hct 28.2 % (42.0-52.0) L 01/01/22 02:51 MCV 78.3 fl (80-94) L 01/01/22 02:51 MCH 22.5 pg (28.0-34.0) L 01/01/22 02:51 MCHC 28.7 g/dL (30.0-36.0) L 01/01/22 02:51 RDW 15.8 % (12.1-15.1) H 01/01/22 02:51 Plt Count 512 10^3/cmm (130-400) H 01/01/22 02:51 MPV 10.0 fL (7.4-10.4) 01/01/22 02:51 Neut % (Auto) 60.4 % 01/01/22 02:51 Lymph % (Auto) 23.1 % 01/01/22 02:51 [place] % (Auto) 9.1 % 01/01/22 02:51 Eos % (Auto) 6.4 % 01/01/22 02:51 Baso % (Auto) 0.8 % 01/01/22 02:51 Neut # (Auto) 5.62 10^3/uL (1.8-7.7) 01/01/22 02:51 Lymph # (Auto) 2.1 10^3/uL (0.8-4.8) 01/01/22 02:51 [place] # (Auto) 0.8 10^3/uL (0.2-0.9) 01/01/22 02:51 Eos # (Auto) 0.6 10^3/uL (0.0-0.8) 01/01/22 02:51 Baso # (Auto) 0.1 10^3/uL (0.0-0.1) 01/01/22 02:51 Nucleated RBC % (auto) 0 % 01/01/22 02:51 Nucleated RBCs # 0.0 /100WBC 01/01/22 02:51 D-Dimer 0.71 ug/mIFEU (0-0.59) H 12/31/21 04:10 Sodium 136 mmol/L (136-145) 01/01/22 02:51 Potassium 4.3 mmol/L (3.5-5.1) 01/01/22 02:51 Chloride 105 mmol/L (98-107) 01/01/22 02:51 Carbon Dioxide 21 mmol/L (22-29) L 01/01/22 02:51 Anion Gap 14.3 (5-19) 01/01/22 02:51 BUN 14 mg/dL (8-23) 01/01/22 02:51 Creatinine 1.1 mg/dL (0.7-1.2) 01/01/22 02:51 GFR Calculation 67.6 mL/min (90-130) L 01/01/22 02:51 Glucose 228 mg/dL (65-115) H 01/01/22 02:51 POC Glucose 238 mg/dL (70-110) H 01/01/22 06:23 Calculated Osmolality 290 mOsm/kg (285-295) 01/01/22 02:51 Calcium 7.5 mg/dL (8.5-10.5) L 01/01/22 02:51 Magnesium 2.1 mg/dL (1.7-2.3) 01/01/22 02:51 Total Bilirubin 0.2 mg/dL (0.15-1.2) 12/31/21 04:10 AST 16 U/L (0-40) 12/31/21 04:10 ALT 14 U/L (0-41) 12/31/21 04:10 Alkaline Phosphatase 147 IU/L (40-130) H 12/31/21 04:10 Troponin T Baseline 167 ng/L (0-15) H* 12/31/21 04:10 Troponin T 120 Minute 340.5 ng/L (0-15) H 12/31/21 06:30 Delta Troponin T 173.5 ABS# (0-10) H* 12/31/21 06:30 NT-Pro-B Natriuret Pep 928 pg/mL (0-125) H 12/31/21 04:10 Total Protein 6.6 g/dL (6.6-8.7) 12/31/21 04:10 Albumin 4.1 g/dL (3.5-5.2) 12/31/21 04:10 Globulin 2.5 g/dL (1.3-4.6) 12/31/21 04:10 Coronavirus 229E (PCR) Not detected (NOT DETECT) 12/31/21 04:29 SARS-CoV-2 (PCR) Not detected (NOT DETECT) 12/31/21 04:29 Vitals Last Vital Signs Temp 98.5 F 01/01/22 08:00 Pulse 70 01/01/22 08:00 Resp 15 01/01/22 08:00 BP 178/83 01/01/22 08:00 Pulse Ox 97 01/01/22 08:00 Discharge Plan Discharge Patient Disposition: Home Condition: Stable Prescriptions: New aspirin 81 mg Tablet,Delayed Release (Dr/Ec) 81 mg PO DAILY Qty: 60 3RF Plavix 75 mg tablet 75 mg PO DAILY Qty: 60 3RF atorvastatin 80 mg tablet 80 mg PO DAILY Qty: 60 3RF metoprolol tartrate 25 mg tablet 12.5 mg PO BID Qty: 60 3RF isosorbide mononitrate 30 mg tablet extended release 24 hr 30 mg PO DAILY Qty: 60 3RF lisinopril 10 mg tablet 10 mg PO DAILY Qty: 60 3RF metoprolol tartrate 25 mg tablet 25 mg PO BID Qty: 60 3RF Continued sildenafil 100 mg tablet 100 mg PO DAILY PRN (Reason: sexual activity) Qty: 20 12RF Rx Instructions: 1 hour before intercourse on empty stomach. NO NITROGLYCERIN! hydrocodone-acetaminophen 5-325 mg tablet 1 tab PO Q4H PRN (Reason: pain) 3 Days Qty: 12 0RF Rx Instructions: take 1 PO every 4 hours PRN pain glipizide 10 mg Tablet Extended Release 24hr 10 mg PO DAILY 0RF Held metformin 1,000 mg Tablet 1,000 mg PO BID 0RF Hold Instructions: Resume on 01/22/22. Discontinued potassium citrate 15 mEq tablet extended release 15 meq PO BID Qty: 60 12RF atorvastatin 40 mg Tablet 40 mg PO DAILY 0RF lisinopril 5 mg Tablet 5 mg PO DAILY 0RF Discharge Orders: Discharge Order (Routine); Ordered 01/01/22 Ordered By: Kev Greene Referrals: David Rojas M.D [Physician] - 1 month Lali Chaudhary FNP [Nurse Practitioner] - 1 week Tejas Wu DO [Primary Care Provider] - 7-10 days Discharge Diet: Cardiac Discharge Activity: Limit activity as instructed Patient Instructions: Metoprolol (By mouth) (Lopressor, Toprol XL), Lisinopril (By mouth) (Prinivil, Zestril), Aspirin (By mouth), Isosorbide Mononitrate (By mouth) (Imdur, Imdur ER, Ismo), Atorvastatin (By mouth) (Lipitor), Clopidogrel (By mouth) (Plavix), Opioid Safety Discharge Attestations Time Spent in Discharge Care*: less than 30 min Quality Metrics Clinical Quality Measures [ No reported AMI, CVA or VTE this stay] Coding Level of Care Code Acute Chg FW DC note Diagnoses Non-ST elevation CT (NSTEMI) I21.4 Diabetes mellitus E11.9 Hypertension I10
[2022-01-01 12:00] VITALS: RESP 16
[2022-01-01] MEDS: enoxaparin 60 mg/0.6 mL Syringe SUBCUT (12:05)
[2022-01-01 12:32] LABS: Estmated Average Glucose 217; Hemoglobin A1C 9.2 % (4.0-6.0)
[2022-01-01 13:19] VITALS: BP 139/70; PULSE 64; RESP 16; TEMP 36.9; O2SAT 98
--- NOTE | 2022-01-01 14:44 | PC.NURSE ---
Discharge Note Patient discharged to home via bed via wheelchair accompanied by . Discharge instructions reviewed with patient and/or traffic workforce representative. Educated pt on new meds actions, dosing, timing and possible s/e. Discuss post angiogram home care instructions and chest pain stoplight. Mobile pharmacy medications and/or prescriptions provided. Belongings/home medications returned.
== END 2022-01-01 13:00 | disposition home or self-care (01) | DRG 282 ==
LOC: ER 07:10 → ER IP 08:27 → CSU 11:20
PROVIDERS: Internal Medicine; Admitting Provider Internal Medicine; Emergency Provider Emergency Medicine; PCP Internal Medicine; Visit Provider Internal Medicine
PROC: B2111ZZ Fluoroscopy of Multiple Coronary Arteries using Low Osmolar Contrast (ICD-10-PCS; principal; 2021-12-31 09:00)
DX: I21.4 Non-ST elevation (NSTEMI) myocardial infarction (principal); E11.22 Type 2 diabetes mellitus with diabetic chronic kidney disease; I12.9 Hypertensive chronic kidney disease with stage 1 through stage 4 chronic kidney disease, or unspecified chronic kidney disease; N18.30 Chronic kidney disease, stage 3 unspecified; I25.10 Atherosclerotic heart disease of native coronary artery without angina pectoris; F17.220 Nicotine dependence, chewing tobacco, uncomplicated; Z79.84 Long term (current) use of oral hypoglycemic drugs; Z79.891 Long term (current) use of opiate analgesic
CPT/HCPCS: 36415; 36416; 71045; 80048; 80053; 82962; 83036; 83735; 83880; 84484; 85025; 85378; 87635; 92978; 93005; 93306; 93454; 94640; 96361; 96372; 96374; 99285; C1753; C1769; C1887; C1894; J1644; J1650; J1815; J2250; J3010; J3490; J7030; Q9967

== ENCOUNTER → 2022-01-07 09:00 | Outpatient (BNVA) | payer MEDICARE, SELFPAY | PROVIDERS: PCP Internal Medicine; Visit Provider Nurse Practitioner Family | DX: Z09 Encounter for follow-up examination after completed treatment for conditions other than malignant neoplasm (principal); I25.10 Atherosclerotic heart disease of native coronary artery without angina pectoris; I21.4 Non-ST elevation (NSTEMI) myocardial infarction | CPT/HCPCS: 80048 ==

== ENCOUNTER 2022-01-12 08:58 | Inpatient (IN) | payer MEDICARE, SELFPAY ==
[2022-01-12] VITALS (34 sets, daily range): BP systolic 102–137; BP diastolic 46–89; PULSE 53–110; RESP 12–29; TEMP 36.3–36.6; O2SAT 91–100; BMI 31.5
--- NOTE | 2022-01-12 09:04 | ECG_ITS ---
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 Measurements Intervals [place] Rate: 112 P: 47 UT: 199 QRS: 74 QRSD: 111 T: 68 QT: 310 QTc: 425 Interpretive Statements SINUS TACHYCARDIA ANTEROSEPTAL MYOCARDIAL INFARCTION , OF INDETERMINATE AGE [40+ ms Q WAVE IN V1-V4] Compared to ECG 12/31/2021 12:16:01 Sinus bradycardia no longer present First degree AV block no longer present Myocardial infarct finding still present Electronically Signed On 01-12-2022 18:07:34 PATIENT SCHEDULER by David Rojas M.D. [email or web address]
[2022-01-12] MEDS: nitroglycerin 0.4 mg sublingual Tablet (09:09)
[2022-01-12] MEDS: heparin 5,000 unit/mL INJ 1 mL 4000 UNIT IVP (09:12)
[2022-01-12] MEDS: clopidogrel 300 mg Tablet PO (09:13)
[2022-01-12] MEDS: aspirin 325 mg Tablet PO (09:13)
[2022-01-12] MEDS: sodium chloride 0.9% 500 ML 999 ML IV (09:14)
[2022-01-12] MEDS: morphine 4 mg/mL SDV 1 mL IVP (09:15)
[2022-01-12] MEDS: ondansetron 2 mg/ML SDV 2 mL 4 MG IVP (09:15)
--- NOTE | 2022-01-12 09:20 | PC.NURSE ---
PATIENT PLACED ON CONTINUOUS BEDSIDE CARDIAC, BP AND O2 MONITOR.
[2022-01-12] MEDS: metoprolol tartrate 1 mg/1 mL SDV 5 mL 5 MG IVP (09:24)
[2022-01-12] MEDS: nitroglycerin drip 50 MG/250 ML PREMIX (09:27)
--- NOTE | 2022-01-12 09:33 | W.ED.CHESTPA ---
HPI - Chest Pain General: Chief Complaint: Chest Pain Stated Complaint: Possible heart attack Time Seen by Provider: 01/12/22 08:59 History of Present Illness: 61-year-old male presents emergency room complaining of chest pain pain radiates into his back and into his arms. He was here earlier this month and had an NSTEMI he had an angiogram which showed significant coronary artery disease with some left main diffuse disease and diffuse right coronary artery disease he was advised by multiple physicians to have a bypass but refused. He returns today with chest pain that he rates 10 out of 10 that began suddenly while he was watching TV at rest. He had a single episode of vomiting. He is severely short of breath on initial evaluation he is mildly hypoxic as well with sats in 87 to 88% on room air. Initial EKG does not show criteria for STEMI. MD complaint: chest pain Pertinent past history: coronary artery disease Onset (ago): minute(s) Timing of current episode: constant Prior episodes: Yes Onset: during rest Pain location: substernal and left chest Pain radiation: left arm, back and left shoulder Severity: severe Pain scale (0-10): 10 Quality: heaviness, sharp and similar to prior ME Relieving factors: nitroglycerin Exacerbating factors: nothing Context: other (Recent NSTEMI with no intervention) Associated symptoms: Reports diaphoresis, dyspnea, nausea and sense of impending doom; Deny abdominal pain, fever(s), leg edema, palpitations, syncope or vomiting Treatment prior to arrival: aspirin Risk Factors: Coronary artery disease risk factors: diabetes, hyperlipidemia and hypertension Review of Systems Const: Reports: diaphoresis; Denies: fever(s) ENMT: Denies: throat pain, ear or mastoid pain, nasal discharge or nasal congestion Card: Denies: palpitations or syncope Resp: Reports: dyspnea GI: Reports: nausea; Denies: abdominal pain or vomiting : Denies: flank pain, dysuria, urinary frequency or urinary urgency Skin/Breast: Denies: rash or pruritus PFSH ED PFSH: Medical History Dental caries Diabetes mellitus Erectile dysfunction due to diseases classified elsewhere Hypertension Urolithiasis Surgical History H/O neck surgery H/O repair of rotator cuff History of ankle surgery History of surgery on arm Social History Smoking and tobacco status: never smoked Alcohol intake: unknown Adopted: No Caregiver/support person: No Lives independently: No Household members: spouse Marital status: Current occupational status: disabled History of recent travel: No Current gender identity: Male Physical Exam Const: GENERAL APPEARANCE: cooperative, in distress, anxious, ill appearing and diaphoretic ORIENTATION/CONSCIOUSNESS: Yes awake, Yes oriented to person, Yes oriented to place and Yes oriented to time HENMT: COMMON NORMALS: normocephalic, atraumatic and hearing grossly normal bilaterally HEAD & SCALP: normocephalic and atraumatic Neck/C-Spine: COMMON NORMALS: no JVD Resp: COMMON NORMALS: normal respiratory effort, No retractions, No use of accessory muscles and clear to auscultation bilaterally AUSCULTATION: clear to auscultation bilaterally Cardio: COMMON NORMALS: no JVD, regular rate, regular rhythm and No murmurs present (Cardio) RATE: regular rate RHYTHM: regular rhythm GI: COMMON NORMALS: Soft to palpation and No hepatosplenomegaly present AUSCULTATION: Yes normoactive bowel sounds PALPATION: Yes Soft to palpation, No Tenderness to palpation present (GI), No Guarding due to palpation present (GI) and Yes No hepatosplenomegaly present Extremity: COMMON NORMALS: normal to inspection, capillary refill normal, no clubbing, cyanosis or edema, no calf tenderness and no pedal edema Neuro: SENSORIUM/ORIENTATION: Yes oriented to person, Yes oriented to place and Yes oriented to time Skin: COMMON NORMALS: no rashes or lesions noted GENERAL SKIN EXAM: no rashes or lesions noted Course Vital Signs: Vital signs: Vital Signs Pulse Rate 59 L 01/12/22 11:26 Respiratory Rate 20 H 01/12/22 11:26 Blood Pressure 116/62 01/12/22 11:26 Pulse Oximetry 100 01/12/22 11:26 MDM - Chest Pain Medical Decision Making Do believe this patient is having acute coronary syndrome. His signs and symptoms are classic and he just recently had the angiogram which demonstrated severe coronary disease requiring bypass but he had opted to delay this. His first troponin is slightly elevated. Dr. Rojas was consulted shortly after the patient arrived here there is no acute ST elevation but his known coronary disease of the left main and diffuse right coronary were very concerning with the degree of pain he was having he did respond well to nitro morphine Lasix and metoprolol. Additionally required oxygen his sats were in the mid to upper 80s when he first arrived. At this time he is feeling much better reports his chest pain 1 of 2 of 10 have discussed the hospitalist will admit Dr. Rojas to consult. Lab Data : 01/12/22 09:25 01/12/22 09:25 Radiology Impressions Chest X-Ray 01/12/22 09:37 IMPRESSION: 1. No acute findings. 2. Metallic surgical hardware cervical spine 3. Metallic surgical clips right lateral chest Laboratory Results WBC 11.8 10^3/uL (4.0-10.0) H 01/12/22 09:25 RBC 3.90 10^6/uL (4.1-5.3) L 01/12/22 09:25 Hgb 8.8 g/dL (11.7-16.6) L 01/12/22 09:25 Hct 30.6 % (42.0-52.0) L 01/12/22 09:25 MCV 78.5 fl (80-94) L 01/12/22 09:25 MCH 22.6 pg (28.0-34.0) L 01/12/22 09:25 MCHC 28.8 g/dL (30.0-36.0) L 01/12/22 09:25 RDW 16.1 % (12.1-15.1) H 01/12/22 09:25 Plt Count 580 10^3/cmm (130-400) H 01/12/22 09:25 MPV 10.1 fL (7.4-10.4) 01/12/22 09:25 Neut % (Auto) 57.6 % 01/12/22 09:25 Lymph % (Auto) 28.1 % 01/12/22 09:25 [place] % (Auto) 8.1 % 01/12/22 09:25 Eos % (Auto) 4.9 % 01/12/22 09:25 Baso % (Auto) 1.1 % 01/12/22 09:25 Neut # (Auto) 6.78 10^3/uL (1.8-7.7) 01/12/22 09:25 Lymph # (Auto) 3.3 10^3/uL (0.8-4.8) 01/12/22 09:25 [place] # (Auto) 1.0 10^3/uL (0.2-0.9) H 01/12/22 09:25 Eos # (Auto) 0.6 10^3/uL (0.0-0.8) 01/12/22 09:25 Baso # (Auto) 0.1 10^3/uL (0.0-0.1) 01/12/22 09:25 Nucleated RBC % (auto) 0 % 01/12/22 09:25 Nucleated RBCs # 0.0 /100WBC 01/12/22 09:25 PT 15.20 SECONDS (12.1-14.9) H 01/12/22 09:25 INR 1.16 (0.8-1.2) 01/12/22 09:25 APTT 123.1 SECONDS (23.9-36.7) H 01/12/22 09:25 Sodium 139 mmol/L (136-145) 01/12/22 09:25 Potassium 5.2 mmol/L (3.5-5.1) H 01/12/22 09:25 Chloride 102 mmol/L (98-107) 01/12/22 09:25 Carbon Dioxide 22 mmol/L (22-29) 01/12/22 09:25 Anion Gap 20.2 (5-19) H 01/12/22 09:25 BUN 26 mg/dL (8-23) H 01/12/22 09:25 Creatinine 1.4 mg/dL (0.7-1.2) H 01/12/22 09:25 GFR Calculation 51.2 mL/min (90-130) L 01/12/22 09:25 Glucose 187 mg/dL (65-115) H 01/12/22 09:25 Calculated Osmolality 298 mOsm/kg (285-295) H 01/12/22 09:25 Calcium 8.4 mg/dL (8.5-10.5) L 01/12/22 09:25 Total Bilirubin 0.2 mg/dL (0.15-1.2) 01/12/22 09:25 AST 14 U/L (0-40) 01/12/22 09:25 ALT 15 U/L (0-41) 01/12/22 09:25 Alkaline Phosphatase 129 IU/L (40-130) 01/12/22 09:25 Troponin T Baseline 49 ng/L (0-15) H 01/12/22 09:25 Total Protein 6.6 g/dL (6.6-8.7) 01/12/22 09:25 Albumin 4.4 g/dL (3.5-5.2) 01/12/22 09:25 Globulin 2.2 g/dL (1.3-4.6) 01/12/22 09:25 Discharge Plan Discharge Condition: Stable Prescriptions: No Action sildenafil 100 mg tablet 100 mg PO DAILY PRN (Reason: sexual activity) Qty: 20 12RF Rx Instructions: 1 hour before intercourse on empty stomach. NO NITROGLYCERIN! hydrocodone-acetaminophen 5-325 mg tablet 1 tab PO Q4H PRN (Reason: pain) 3 Days Qty: 12 0RF Rx Instructions: take 1 PO every 4 hours PRN pain glipizide 10 mg Tablet Extended Release 24hr 10 mg PO DAILY 0RF metformin 1,000 mg Tablet 1,000 mg PO BID 0RF Hold Instructions: Resume on 01/05/22. aspirin 81 mg Tablet,Delayed Release (Dr/Ec) 81 mg PO DAILY Qty: 60 3RF Plavix 75 mg tablet 75 mg PO DAILY Qty: 60 3RF atorvastatin 80 mg tablet 80 mg PO DAILY Qty: 60 3RF isosorbide mononitrate 30 mg tablet extended release 24 hr 30 mg PO DAILY Qty: 60 3RF lisinopril 10 mg tablet 10 mg PO DAILY Qty: 60 3RF metoprolol tartrate 25 mg tablet 25 mg PO BID Qty: 60 3RF Referrals: Tejas Wu DO [Primary Care Provider] - Coding Level of Care Code ED Display And Banner Designer for Chg Fwd Exam Comprehensive
--- NOTE | 2022-01-12 09:33 | PM.CONSULT ---
Providers/Reason For Consult Consulting Physician/Specialty*: David Rojas MD/ Cardiology Reason for Consult*: Chest pain Requesting Physician: Dr Mock Attending Physician: Dr Lyle Primary Care Provider: Tejas Wu DO History of Present Illness History of Present Illness Jordan Henriquez is a 61 year old male diabetes hypertension was recently admitted to the hospital with non-ST elevation MS. At that time coronary angiogram showed significant distal left main stenosis and serial multiple RCA stenosis. CABG was recommended. However patient wanted medical therapy only and no revascularization was performed (wanted to consider it once moves to [place]). Patient continued having chest pain symptoms on exertion however over the weekend chest pains worsened and today he was having severe chest discomfort at rest. Also he was in pulmonary edema and was very short of breath. Unable to lay down flat. EKG showed sinus tachycardia however no ST elevations were noted. Patient was hypoxic. Review of Systems Const: Denies: fever(s) or chills Eyes: Denies: change in vision ENMT: Denies: throat pain or nasal congestion Card: Reports: chest pain, edema, dyspnea on exertion and orthopnea; Denies: palpitations Resp: Reports: dyspnea and non-productive cough; Denies: productive cough, pain on inspiration, hemoptysis or chest congestion GI: Reports: nausea, vomiting (one time today) and constipation (since last admission); Denies: abdominal pain, diarrhea, hematochezia or melena : Denies: difficulty urinating Musc: Denies: back pain, extremity pain or joint pain Skin/Breast: Denies: rash or pruritus Neuro: Denies: headache(s) or weakness in extremities Chris/Lymph: Denies: easy bruising or easy bleeding Medications/Allergies Home Medications Medication Instructions Recorded Confirmed Last Taken Type glipizide 10 mg tablet, extended 10 mg PO BEDTIME 02/12/20 01/12/22 01/11/22 History release 24 hr metformin 1,000 mg tablet 1,000 mg PO BEDTIME 02/12/20 01/12/22 01/11/22 History sildenafil 100 mg tablet 100 mg PO DAILY PRN #20 tab 02/16/20 01/12/22 Unknown Rx hydrocodone 5 mg-acetaminophen 325 1 tab PO Q4H PRN 3 Days #12 tab 12/12/20 01/12/22 Unknown Rx mg tablet aspirin 81 mg tablet,delayed 81 mg PO DAILY #60 tab 01/01/22 01/12/22 01/12/22 Rx release atorvastatin 80 mg tablet 80 mg PO DAILY #60 tab 01/01/22 01/12/22 01/12/22 Rx clopidogrel 75 mg tablet (Plavix) 75 mg PO DAILY #60 tab 01/01/22 01/12/22 01/12/22 Rx isosorbide mononitrate 30 mg 30 mg PO DAILY #60 tab 01/01/22 01/12/22 01/12/22 Rx tablet,extended release 24 hr lisinopril 10 mg tablet 10 mg PO DAILY #60 tab 01/01/22 01/12/22 01/12/22 Rx metoprolol tartrate 25 mg tablet 25 mg PO BID #60 tab 01/01/22 01/12/22 01/12/22 Rx potassium citrate 15 mEq (1,620 15 meq PO DAILY 01/12/22 01/12/22 01/12/22 History mg) tablet,extended release Allergies Allergy/AdvReac Type Severity Reaction Status Date / Time adhesive AdvReac Unknown Verified 01/07/22 08:23 Current Medications Generic Name Dose Route Start Last Admin Trade Name Freq PRN Reason Stop Dose Admin Sodium Chloride 500 mls @ 999 mls/hr 01/12/22 09:04 01/12/22 09:14 Sodium Chloride 0.9% IV 01/12/22 09:34 999 mls/hr .Q31M ONE Administration PFSH Acute PFSH: Medical History CAD (coronary artery disease) Dental caries Diabetes mellitus Dyslipidemia Erectile dysfunction due to diseases classified elsewhere Hypertension Urolithiasis Surgical History H/O neck surgery H/O repair of rotator cuff History of ankle surgery History of lithotripsy History of surgery on arm Family History Other CAD (coronary artery disease) Social History Smoking and tobacco status: never smoked Alcohol intake: current Alcohol intake frequency: holidays/special occasions only Substance/Drug Use: never Adopted: No Household members: spouse Marital status: Current occupational status: disabled Current gender identity: Male Vitals/I&O/Wt Last Vital Signs Pulse 110 H 01/12/22 09:04 Resp 19 H 01/12/22 09:04 BP 137/89 01/12/22 09:04 Pulse Ox 91 01/12/22 09:04 Weight last 48 hrs Weight 220 lb Physical Exam Narrative: GENERAL: Patient is alert, respiratory distress sitting up using accessory muscles. NECK: No jugular vein distension. [] HEENT: No cyanosis. No icterus. No pallor. [] HEART: Tachycardic, S1 plus S2. LUNGS: Crackles. ABDOMEN: Soft, nontender and nondistended. Positive bowel sounds. No guarding, rebound or tenderness. [] CENTRAL NERVOUS SYSTEM: Grossly nonfocal. [] EXTREMITIES: Lower extremities with 1+ edema bilaterally. Pulses palpable in the lower extremities, both dorsalis pedis and posterior tibial. [] Data : 01/12/22 09:25 01/12/22 09:25 A&P Assessment and plan (1) CAD (coronary artery disease): Status: Chronic Qualifiers: Coronary Disease-Associated Artery/Lesion type: [place] artery [place] vs. 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 insulin use: without termite renewal inspector use Diabetes mellitus complication status: with hyperglycemia Qualified Code(s): E11.65 - Type 2 diabetes mellitus with hyperglycemia (4) Stenosis of left main coronary artery: Status: Chronic (5) Hypertension: Status: Chronic Qualifiers: Hypertension type: primary hypertension Qualified Code(s): I10 - Essential (primary) hypertension Plan Patient with known left main stenosis and RCA stenosis who had recent non-ST elevation MS and opted for medical therapy only has presented again with typical chest pain symptoms consistent with unstable angina and is in pulmonary edema. Continue aspirin. Start heparin drip. He is in pulmonary edema. Administer IV Lasix Start nitro drip for pain relief. Order limited echocardiogram to reassess LV systolic function. Trend troponins Once patient is stable, we will have discussion regarding his goals of care. If he agrees to coronary bypass surgery, we will consult Dr. Shell again for his recommendations. Hold Plavix for now. Thank you for involving us with care of this patient. We will continue to follow. Please call with questions. Consult Attestations Medical Necessity Statement: Care expected to cross 2 midnights. Coding Level of Care Code Acute Class B Driver for Lakishag Fwd Diagnoses CAD (coronary artery disease) I25.110 Coronary Disease-Associated Artery/Lesion type: [place] artery [place] vs. transplanted heart: [place] heart Associated angina: with unstable angina Chest pain I20.0 Chest pain type: chest pain due to myocardial ischemia Ischemic chest pain type: unstable angina pectoris Diabetes mellitus E11.65 Diabetes mellitus type: type 2 Diabetes mellitus correction insulin use: without correction use Diabetes mellitus complication status: with hyperglycemia Stenosis of left main coronary artery I25.10 Hypertension I10 Hypertension type: primary hypertension
[2022-01-12 09:35] LABS: Basophils # 0.1 10^3/uL (0.0-0.1); Basophils % 1.1 %; Eosinophils # 0.6 10^3/uL (0.0-0.8); Eosinophils % 4.9 %; Hematocrit 30.6 % (42.0-52.0); Hemoglobin 8.8 g/dL (11.7-16.6); Lymphocytes # 3.3 10^3/uL (0.8-4.8); Lymphocytes % 28.1 %; Mean Corpuscular HGB Conc 28.8 g/dL (30.0-36.0); Mean Corpuscular Hemoglobin 22.6 pg (28.0-34.0); Mean Corpuscular Volume 78.5 fl (80-94); Mean Platelet Volume 10.1 fL (7.4-10.4); Monocytes % 8.1 %; Neutrophils # 6.78 10^3/uL (1.8-7.7); Neutrophils % 57.6 %; Nucleated Red Blood Cells % 0 %; Platelet Count 580 10^3/cmm (130-400); Red Cell Distribution Width 16.1 % (12.1-15.1); White Blood Count 11.8 10^3/uL (4.0-10.0)
[2022-01-12] MEDS: heparin drip 25,000 UNIT/500 ML PREMIX 55.88 UNIT IV (09:35)
--- NOTE | 2022-01-12 09:37 | XRR_ITS ---
PROCEDURE INFORMATION: Exam: XR Chest Exam date and time: 01/12/2022 9:37 AM Age: 61 years old Clinical indication: Pain; Angina pectoris; Patient HX: Cp x 1 day; HX of prior heart attack; Additional info: Dyspnea/cough TECHNIQUE: Imaging protocol: XR of the chest. Views: 1 view. COMPARISON: CR (CHEST, ) 12/31/2021 4:42 AM FINDINGS: Lungs: Low lung volumes seen. No consolidation. Pleural spaces: Mild thickening is seen in the minor fissure No pleural effusion. No pneumothorax. Heart/Mediastinum: Unremarkable. No cardiomegaly. Bones/joints: Metallic surgical hardware is seen in the cervical spine stable since prior. Soft tissues: Metallic surgical clips right lateral chest wall XR/XR chest 1V portable [id number] IMPRESSION: 1. No acute findings. 2. Metallic surgical hardware cervical spine 3. Metallic surgical clips right lateral chest
[2022-01-12] MEDS: FUROsemide 10 mg/mL SDV 4mL 40 MG IVP (09:40)
[2022-01-12 09:57] LABS: INR 1.16 (0.8-1.2)
[2022-01-12 10:03] LABS: Alanine Aminotransferase 15 U/L (0-41); Albumin Level 4.4 g/dL (3.5-5.2); Alkaline Phosphatase 129 IU/L (40-130); Anion Gap 20.2 (5-19); Aspartate Amino Transferase 14 U/L (0-40); Blood Urea Nitrogen 26 mg/dL (8-23); Calcium 8.4 mg/dL (8.5-10.5); Carbon Dioxide 22 mmol/L (22-29); Chloride 102 mmol/L (98-107); Globulin 2.2 g/dL (1.3-4.6); Glomerular Filtration Rate 51.2 mL/min (90-130); Glucose 187 mg/dL (65-115); Osmolality Calculated 298 mOsm/kg (285-295); Potassium 5.2 mmol/L (3.5-5.1); Sodium 139 mmol/L (136-145); Total Bilirubin 0.2 mg/dL (0.15-1.2); Total Protein 6.6 g/dL (6.6-8.7)
[2022-01-12 10:06] LABS: Troponin(5th) Baseline 49 ng/L (0-15)
[2022-01-12 10:07] LABS: Partial Thromboplastin Time 123.1 SECONDS (23.9-36.7)
--- NOTE | 2022-01-12 10:55 | P.HP_ITS ---
Providers/Chief Complaint Admitting Physician: Loli Lyle MD Primary Care Provider: Tejas Wu DO Chief Complaint: Possible heart attack History of Present Illness Jordan Henriquez is a 61 year old male with a known left main and RCA stenosis who was here last week with a non-ST elevation VT. He declined to have bypass surgery and was ultimately discharged home with medical management. He comes in again today with chest pain consistent with unstable angina. Pain is substernal in nature radiating into the left arm. Associated with increased shortness of breath and hypoxemia, nausea and one episode of vomiting prior to presentation. He has had episodes of chest pain this of breath with exertion since he left the hospital last week but usually improves with rest. Today he has been up but was not doing much when pain came on suddenly. On arrival to the emergency room, oxygen saturations were 86% on room air, pulse was in the 100s show 130s over 90s. Stat twelve-lead EKG did not show any ST elevation. Patient was started on nitroglycerin drip and heparin drip. He did receive a Plavix load and cardiology was consulted. His chest pain began to improve. Initial troponin was 49. At the time of my evaluation, patient was chest pain-free. He also requested transfer to [place]. No beds were available at [place] for transfer. After some consideration, patient was agreeable to admission here. Him and his are aware of the blockages and need for intervention to decrease risk of recurrent episodes similar to today. Patient received some IV diuresis in the emergency room with improvement in his respiratory status. He has chronic difficulty sleeping in the supine position but does describe probably increased orthopnea over the last week. He is also had increased edema in both feet. Per discharge summary last week, cardiac cath revealed a 60% left main stenosis which has been confirmed through IVUS as well as multiple serial lesions of the RCA between 80 and 90% extending down to the bifurcation.? LAD and circumflex have noncritical disease. Echo last week showed: ?CONCLUSIONS ?1. Normal left ventricular size, systolic function and wall ?thickness. Left ventricular ejection fraction is estimated at 55 ?%. There is hypokinesis of basal to apical inferior trimble. ?Normal diastolic function. ?2. Normal right ventricular size and systolic function. ?3. Mild mitral valve regurgitation. ?4. No prior similar studies to compare. Review of Systems Const: Denies: fever(s) or chills Eyes: Denies: change in vision ENMT: Denies: throat pain or nasal congestion Card: Reports: chest pain, edema, dyspnea on exertion and orthopnea; Denies: palpitations Resp: Reports: dyspnea and non-productive cough; Denies: productive cough, pain on inspiration, hemoptysis or chest congestion GI: Reports: nausea, vomiting (one time today) and constipation (since last admission); Denies: abdominal pain, diarrhea, hematochezia or melena : Denies: difficulty urinating Musc: Denies: back pain, extremity pain or joint pain Skin/Breast: Denies: rash or pruritus Neuro: Denies: headache(s) or weakness in extremities Chris/Lymph: Denies: easy bruising or easy bleeding Medications/Allergies Home Medications Medication Instructions Recorded Confirmed Last Taken Type glipizide 10 mg tablet, extended 10 mg PO DAILY 02/12/20 01/07/22 12/30/21 History release 24 hr metformin 1,000 mg tablet 1,000 mg PO BID 02/12/20 01/07/22 12/30/21 History sildenafil 100 mg tablet 100 mg PO DAILY PRN #20 tab 02/16/20 01/07/22 Unknown Rx hydrocodone 5 mg-acetaminophen 325 1 tab PO Q4H PRN 3 Days #12 tab 12/12/20 01/07/22 Unknown Rx mg tablet aspirin 81 mg tablet,delayed 81 mg PO DAILY #60 tab 01/01/22 01/07/22 Unknown Rx release atorvastatin 80 mg tablet 80 mg PO DAILY #60 tab 01/01/22 01/07/22 Unknown Rx clopidogrel 75 mg tablet (Plavix) 75 mg PO DAILY #60 tab 01/01/22 01/07/22 Unknown Rx isosorbide mononitrate 30 mg 30 mg PO DAILY #60 tab 01/01/22 01/07/22 Unknown Rx tablet,extended release 24 hr lisinopril 10 mg tablet 10 mg PO DAILY #60 tab 01/01/22 01/07/22 Unknown Rx metoprolol tartrate 25 mg tablet 25 mg PO BID #60 tab 01/01/22 01/07/22 Unknown Rx potassium citrate 15 mEq (1,620 15 meq PO DAILY 01/12/22 01/12/22 01/12/22 History mg) tablet,extended release Allergies Allergy/AdvReac Type Severity Reaction Status Date / Time adhesive AdvReac Unknown Verified 01/07/22 08:23 Additional Medication Information has not taken sildinafil in a long time ; reviewed risk when mixed with cardiac medications PFSH Acute PFSH: Medical History (Updated 01/12/22 @ 13:34 by Loli Lyle MD) CAD (coronary artery disease) Dental caries Diabetes mellitus Dyslipidemia Erectile dysfunction due to diseases classified elsewhere Hypertension Urolithiasis Surgical History (Updated 01/12/22 @ 13:09 by Loli Lyle MD) H/O neck surgery H/O repair of rotator cuff History of ankle surgery History of lithotripsy History of surgery on arm Family History (Updated 01/12/22 @ 12:18 by Loli Lyle MD) Other CAD (coronary artery disease) Social History (Updated 01/12/22 @ 13:07 by Loli Lyle MD) Smoking and tobacco status: never smoked Alcohol intake: current Alcohol intake frequency: holidays/special occasions only Substance/Drug Use: never Adopted: No Household members: spouse Marital status: Current occupational status: disabled Current gender identity: Male Vitals/I&O/Wt Last Vital Signs Pulse 64 01/12/22 10:12 Resp 23 H 01/12/22 10:12 BP 128/65 01/12/22 10:12 Pulse Ox 100 01/12/22 10:12 01/11/22 01/12/22 01/12/22 22:59 06:59 14:59 Intake Total 403.075 / 403.075 Balance 403.075 / 403.075 Weight last 48 hrs Weight 99.79 kg Physical Exam Narrative: Constitutional: Awake and alert, not happy about being in the hospital or in the hospital here but cooperative, presently on heparin drip and nitroglycerin drip at 30 HEENT: Normocephalic, atraumatic, pupils are equally reactive, nasopharynx is clear, oropharynx with dry mucous membranes but otherwise clear Neck: No JVD at the time of my examination, no lymphadenopathy Respiratory: Clear to auscultation bilaterally without any rales rhonchi or wheezes at rest Cardiovascular: Bradycardic but regular rhythm no gallops or rubs Abdomen: Soft, nontender, positive bowel sounds Extremities: 1+ edema, no calf tenderness Skin: Pale, no rashes, no sores Neuro: Speech clear, face symmetric, moves all extremities Psych: Animated affect especially when talking about having to stay in the hospital Data : 01/12/22 09:25 01/12/22 09:25 Other Labs: Radiology Impressions Chest X-Ray 01/12/22 09:37 IMPRESSION: 1. No acute findings. 2. Metallic surgical hardware cervical spine 3. Metallic surgical clips right lateral chest Laboratory Results WBC 11.8 10^3/uL (4.0-10.0) H 01/12/22 09:25 RBC 3.90 10^6/uL (4.1-5.3) L 01/12/22 09:25 Hgb 8.8 g/dL (11.7-16.6) L 01/12/22 09:25 Hct 30.6 % (42.0-52.0) L 01/12/22 09:25 MCV 78.5 fl (80-94) L 01/12/22 09:25 MCH 22.6 pg (28.0-34.0) L 01/12/22 09:25 MCHC 28.8 g/dL (30.0-36.0) L 01/12/22 09:25 RDW 16.1 % (12.1-15.1) H 01/12/22 09:25 Plt Count 580 10^3/cmm (130-400) H 01/12/22 09:25 MPV 10.1 fL (7.4-10.4) 01/12/22 09:25 Neut % (Auto) 57.6 % 01/12/22 09:25 Lymph % (Auto) 28.1 % 01/12/22 09:25 [place] % (Auto) 8.1 % 01/12/22 09:25 Eos % (Auto) 4.9 % 01/12/22 09:25 Baso % (Auto) 1.1 % 01/12/22 09:25 Neut # (Auto) 6.78 10^3/uL (1.8-7.7) 01/12/22 09:25 Lymph # (Auto) 3.3 10^3/uL (0.8-4.8) 01/12/22 09:25 [place] # (Auto) 1.0 10^3/uL (0.2-0.9) H 01/12/22 09:25 Eos # (Auto) 0.6 10^3/uL (0.0-0.8) 01/12/22 09:25 Baso # (Auto) 0.1 10^3/uL (0.0-0.1) 01/12/22 09:25 Nucleated RBC % (auto) 0 % 01/12/22 09:25 Nucleated RBCs # 0.0 /100WBC 01/12/22 09:25 PT 15.20 SECONDS (12.1-14.9) H 01/12/22 09:25 INR 1.16 (0.8-1.2) 01/12/22 09:25 APTT 123.1 SECONDS (23.9-36.7) H 01/12/22 09:25 Sodium 139 mmol/L (136-145) 01/12/22 09:25 Potassium 5.2 mmol/L (3.5-5.1) H 01/12/22 09:25 Chloride 102 mmol/L (98-107) 01/12/22 09:25 Carbon Dioxide 22 mmol/L (22-29) 01/12/22 09:25 Anion Gap 20.2 (5-19) H 01/12/22 09:25 BUN 26 mg/dL (8-23) H 01/12/22 09:25 Creatinine 1.4 mg/dL (0.7-1.2) H 01/12/22 09:25 GFR Calculation 51.2 mL/min (90-130) L 01/12/22 09:25 Glucose 187 mg/dL (65-115) H 01/12/22 09:25 Calculated Osmolality 298 mOsm/kg (285-295) H 01/12/22 09:25 Calcium 8.4 mg/dL (8.5-10.5) L 01/12/22 09:25 Total Bilirubin 0.2 mg/dL (0.15-1.2) 01/12/22 09:25 AST 14 U/L (0-40) 01/12/22 09:25 ALT 15 U/L (0-41) 01/12/22 09:25 Alkaline Phosphatase 129 IU/L (40-130) 01/12/22 09:25 Troponin T Baseline 49 ng/L (0-15) H 01/12/22 09:25 Total Protein 6.6 g/dL (6.6-8.7) 01/12/22 09:25 Albumin 4.4 g/dL (3.5-5.2) 01/12/22 09:25 Globulin 2.2 g/dL (1.3-4.6) 01/12/22 09:25 Laboratory Tests 01/01/22 02:51 Hemoglobin A1c 9.2 H A&P Assessment and plan (1) Chest pain: Consistent with unstable angina in a patient with known coronary blockages who declined bypass surgery last week. He has associated pulmonary edema today with hypoxemia that has responded to Lasix. Chest pain has responded to initiation of nitroglycerin drip. Cardiology consultation, has already been seen by Dr. Rojas in the emergency room Continue heparin drip Was loaded with Plavix, is on Plavix daily since at least last hospital stay Continue nitroglycerin drip, home isosorbide presently held Aspirin, statin, beta-blockade Lisinopril secondary to renal function EKG as needed chest pain Status post 1 dose of IV Lasix in the emergency room, patient was noted to be 5.2 so not replaced Tentative plan is for cardiac catheterization tomorrow as I understand it as long as patient does not have recurrent severe chest pain today. Status: Acute Qualifiers: Chest pain type: chest pain due to myocardial ischemia Ischemic chest pain type: unstable angina pectoris Qualified Code(s): I20.0 - Unstable angina (2) Microcytic anemia: Most likely combination of anemia of chronic kidney disease plus volume overload presently. No reported bleeding. He is on aspirin and Plavix earlier this month. Monitor H&H for further drop Hemoccult of stool TIBC For now we will continue aspirin, Plavix and heparin drip Status: Acute (3) Acute renal insufficiency: On at least chronic kidney disease stage II, review of records shows variable creatinine levels from 1.1-1.7 dating back to January 2020. At discharge on January 07 creatinine was 1.2 with BUN of 19, today 26/1.4. He had been on lisinopril at a lower dose for a while but it was increased to 10 mg a day on January 01. He also had clinical evidence of volume overload upon admission. In the emergency room he received IV fluids as well as some diuresis Check urinalysis Recheck renal function in the morning Monitor I's and O's closely Status: Acute (4) Stenosis of left main coronary artery: Status: Chronic (5) Stenosis of right coronary artery: Status: Chronic (6) CAD (coronary artery disease): In need of intervention as described above Status: Chronic Qualifiers: Coronary Disease-Associated Artery/Lesion type: [place] artery [place] vs. transplanted heart: [place] heart Associated angina: with unstable angina Qualified Code(s): I25.110 - Atherosclerotic heart disease of [place] coronary artery with unstable angina pectoris (7) Dyslipidemia: On statin therapy Continue statin Check lipid panel Status: Chronic (8) Hypertension: On increased dose of lisinopril, beta-blockade and isosorbide at home Presently on nitroglycerin drip, continuing beta-blockade and holding lisinopril Monitor response Status: Chronic Qualifiers: Hypertension type: primary hypertension Qualified Code(s): I10 - Essential (primary) hypertension (9) Diabetes mellitus: Chronically on Metformin and glipizide, hemoglobin A1c earlier this month 9.2 Hold both oral medications Sliding scale insulin as needed Status: Chronic Qualifiers: Diabetes mellitus type: type 2 Diabetes mellitus intermediate frame tender insulin use: without intermediate frame tender use Diabetes mellitus complication status: with hyperglycemia Qualified Code(s): E11.65 - Type 2 diabetes mellitus with hyperglycemia Plan Inpatient admission Continue home hydrocodone As needed morphine if needed for severe chest pain Heparin drip currently providing VTE prophylaxis, will add SCDs in the interim as well PPI for GI prophylaxis Supportive care otherwise Findings, concerns and plans were discussed with patient and his and both were given an opportunity to ask questions After some discussion patient was agreeable to management here understanding that there were no beds at the hospital that he wished to transfer to presently and that he was not safe for discharge home given the medications that were necessary to maintain patency of his coronary arteries. He understood that going home could mean dying without intervention. Anticipate discharge home once medically stable although will ultimately depend on clinical course Full code Attestations Medical Necessity Statement*: Anticipated stay greater than two midnights in a gentleman with known coronary artery disease in need of intervention. Currently on nitroglycerin drip, heparin drip with cardiology consultation for assistance in management. In addition to coronary artery disease he has anemia and acute renal insufficiency Coding Level of Care Code Acute Foundation Assistant for Shauna Guadarrama Diagnoses Chest pain I20.0 Chest pain type: chest pain due to myocardial ischemia Ischemic chest pain type: unstable angina pectoris Stenosis of left main coronary artery I25.10 CAD (coronary artery disease) I25.110 Coronary Disease-Associated Artery/Lesion type: [place] artery [place] vs. transplanted heart: [place] heart Associated angina: with unstable angina Dyslipidemia E78.5 Hypertension I10 Hypertension type: primary hypertension Diabetes mellitus E11.65 Diabetes mellitus type: type 2 Diabetes mellitus intermediate frame tender insulin use: without shelter use Diabetes mellitus complication status: with hyperglycemia Stenosis of right coronary artery I25.10 Microcytic anemia D50.9 Acute renal insufficiency N28.9
--- NOTE | 2022-01-12 11:04 | ECG_ITS ---
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 Measurements Intervals [place] Rate: 110 P: 84 CO: 205 QRS: 76 QRSD: 108 T: -17 QT: 314 QTc: 426 Interpretive Statements SINUS TACHYCARDIA ANTEROSEPTAL MYOCARDIAL INFARCTION , OF INDETERMINATE AGE [40+ ms Q WAVE IN V1-V4] Compared to ECG 01/12/2022 09:03:46 No significant changes Electronically Signed On 01-12-2022 18:08:46 BACCARAT MANAGER by David Rojas M.D. [id number]
[2022-01-12 12:19] LABS: NT Pro B Type Natriuretic Pept 1503 pg/mL (0-125)
[2022-01-12 13:13] LABS: Troponin 5 2HR 166.9 ng/L (0-15); Troponin 5 2HR Delta 117.9 ABS# (0-10)
[2022-01-12 14:42] LABS: Add Urine Microscopic? NO; Charge for UA Resulting for Rev
[2022-01-12 14:56] LABS: Bilirubin Urine Neg (Negative); Blood Urine Neg (Negative); Glucose Urine UA 4+ (Normal); Ketones Urine Negative (Negative); Leukocyte Esterase Urine Negative (Negative); Nitrate Urine Negative (Negative); Protein Urine Neg (Negative); Urine Appearance Clear (CLEAR); Urine Color Yellow (Yellow); Urobilinogen Urine Norm (Negative); pH Urine 5 (5-7)
--- NOTE | 2022-01-12 15:04 | ECG_ITS ---
[facility] Test Date: 2022-01-12 Pat Name: Jordan Henriquez Department: Room: 108 Gender: Male Safety Companion: : 1960 Requested By: Gerardo Ragland Order Number: [id number] Avi MD: David Rojas M.D. Measurements Intervals [place] Rate: 50 P: 26 CT: 226 QRS: 24 QRSD: 93 T: 7 QT: 447 QTc: 410 Interpretive Statements SINUS BRADYCARDIA WITH FIRST DEGREE AV BLOCK POSSIBLE INFERIOR MYOCARDIAL INFARCTION , PROBABLY OLD [30 ms Q WAVE IN II/aVF] ANTEROSEPTAL MYOCARDIAL INFARCTION , OF INDETERMINATE AGE [40+ ms Q WAVE IN V1-V4] Compared to ECG 01/12/2022 09:06:53 First degree AV block now present Sinus tachycardia no longer present Myocardial infarct finding still present Electronically Signed On 01-12-2022 18:07:42 FINANCIAL INTERN by David Rojas M.D. [id number]
[2022-01-12 16:43] LABS: Glucose Point of Care 135 mg/dL (70-110)
[2022-01-12] MEDS: docusate sodium 100 mg Capsule PO (17:43)
[2022-01-12 17:52] LABS: Troponin 5 6HR 286.1 ng/L (0-15); Troponin 5 6HR Delta 237.1 ng/L (0-12)
[2022-01-12] MEDS: metoprolol tartrate 25 mg Tablet PO (17:55)
[2022-01-12 20:14] LABS: Glucose Point of Care 184 mg/dL (70-110)
[2022-01-12] MEDS: atorvastatin 40 mg Tablet 80 MG PO (20:56)
[2022-01-12 20:57] LABS: Glucose Point of Care 180 mg/dL (70-110)
[2022-01-12] MEDS: insulin lispro 100 unit/1 mL SUBCUT (21:02)
[2022-01-12] MEDS: nitroglycerin drip 50 MG/250 ML PREMIX IV (21:35)
[2022-01-12 22:00] LABS: Partial Thromboplastin Time 64.9 SECONDS (23.9-36.7)
[2022-01-13] VITALS (16 sets, daily range): BP systolic 106–134; BP diastolic 53–74; PULSE 59–75; RESP 14–22; TEMP 36.1–36.6; O2SAT 92–97
[2022-01-13] MEDS: heparin drip 25,000 UNIT/500 ML PREMIX 28 UNIT IV (03:30)
[2022-01-13 03:56] LABS: Basophils # 0.1 10^3/uL (0.0-0.1); Eosinophils # 0.5 10^3/uL (0.0-0.8); Eosinophils % 5.3 %; Hematocrit 26.2 % (42.0-52.0); Hemoglobin 7.6 g/dL (11.7-16.6); Lymphocytes # 2.2 10^3/uL (0.8-4.8); Lymphocytes % 24.1 %; Mean Corpuscular Hemoglobin 22.4 pg (28.0-34.0); Mean Corpuscular Volume 77.3 fl (80-94); Mean Platelet Volume 10.2 fL (7.4-10.4); Monocytes # 0.8 10^3/uL (0.2-0.9); Monocytes % 8.4 %; Neutrophils # 5.43 10^3/uL (1.8-7.7); Nucleated Red Blood Cells % 0 %; Platelet Count 444 10^3/cmm (130-400); Red Blood Count 3.39 10^6/uL (4.1-5.3); Red Cell Distribution Width 15.9 % (12.1-15.1); White Blood Count 8.9 10^3/uL (4.0-10.0)
[2022-01-13 04:15] LABS: INR 1.08 (0.8-1.2)
[2022-01-13 04:16] LABS: Partial Thromboplastin Time 58.3 SECONDS (23.9-36.7)
[2022-01-13 04:28] LABS: Anion Gap 15.9 (5-19); Blood Urea Nitrogen 28 mg/dL (8-23); Calcium 7.6 mg/dL (8.5-10.5); Carbon Dioxide 23 mmol/L (22-29); Chloride 105 mmol/L (98-107); Chol HDL Ratio 5.13 mg/dL (1.0-5.00); Cholesterol 123 mg/dL (0-200); Glomerular Filtration Rate 55.8 mL/min (90-130); Glucose 140 mg/dL (65-115); HDL Cholesterol 24 mg/dL (60-100); LDL Cholesterol Calculated 68 mg/dL (50-129); LDL HDL Ratio 2.83 RATIO (0.00-3.22); Osmolality Calculated 296 mOsm/kg (285-295); Phosphorus 4.7 mg/dL (2.5-4.5); Potassium 4.9 mmol/L (3.5-5.1); Sodium 139 mmol/L (136-145); Triglycerides 157 mg/dL (0-150); Uric Acid 6.9 mg/dL (3.4-7.0)
[2022-01-13 04:43] LABS: Iron 21 ug/dL (59-158); Percent Saturation 6.5 % (20-50); Total Iron Binding Capacity 319 mcg/dl; Unsaturated Iron Binding 298 ug/dL (112-347)
[2022-01-13 06:46] LABS: Glucose Point of Care 151 mg/dL (70-110)
--- NOTE | 2022-01-13 07:38 | PC.NURSE ---
recieved report from mini shifter. reviewed poc. no needs identified at this time.
--- NOTE | 2022-01-13 08:07 | PM.PN ---
Subjective Subjective: Patient was seen and examined this morning, denies any chest pain, has intermittent shortness of breath. His other vitals and labs have been reviewed. Medications: Medication Review Details: Generic Name Dose Route Start Last Admin Trade Name [place] PRN Reason Stop Dose Admin Aspirin 81 mg 01/13/22 09:00 01/13/22 08:21 Aspirin 81 Mg Ec Tablet PO 81 mg DAILY MAGALY Administration Atorvastatin Calci um 80 mg 01/12/22 21:00 01/12/22 20:56 Atorvastatin 40 Mg Tablet PO 80 mg BEDTIME MAGALY Administration Bisacodyl 10 mg 01/12/22 15:57 01/13/22 08:21 Bisacodyl 5 Mg T ablet PO 10 mg DAILY PRN Administration Constipation (see protocol) Protocol Docusate Sodium 100 mg 01/12/22 18:00 01/13/22 08:21 Docusate Sodium 100 Mg Capsule PO 100 mg BID MAGALY Administration Enoxaparin Sodium 100 mg 01/13/22 10:30 01/13/22 11:16 Enoxaparin 100 M g/Ml Syringe 1 mg/kg (100 mg) 100 mg SUBCUT Administration Q12H [facility] Nitroglycerin/Dext lilian 50 mg in 250 mls @ 0 mls/hr 01/12/22 09:30 01/12/22 21:[address] ip IV 5 mcg/min .Q0M MAGALY 1.5 mls/hr Administration Protocol Per Protocol Insulin Human Lisp ro 0 unit 01/12/22 21:00 01/12/22 21:02 Insulin Lispro 1 00 Unit/1 Ml SUBCUT 1 unit BEDTIME MAGALY Administration Protocol Insulin Human Lisp ro 0 unit 01/12/22 18:00 01/13/22 11:59 Insulin Lispro 1 00 Unit/1 Ml SUBCUT 6 unit TIDWM MAGALY Administration Protocol Metoprolol Tartrat e 25 mg 01/12/22 18:00 01/13/22 08:21 Metoprolol Tartr ate 25 Mg Tablet PO 25 mg BID MAGALY Administration Pantoprazole Sodiu m 40 mg 01/13/22 09:00 01/13/22 08:[address] 40 Mg Tablet PO 40 mg DAILY MAGALY Administration Vitals/I&O/Wt Last Vital Signs Temp 97.3 F L 01/13/22 07:22 Pulse 61 01/13/22 07:22 Resp 16 02/15/22 07:22 BP 129/64 01/13/22 07:22 Pulse Ox 94 01/13/22 07:22 01/12/22 01/13/22 01/13/22 22:59 06:59 14:59 Intake Total 100 / 508.700 500 / 1008.700 240 / 240 Output Total 900 / 900 500 / 1400 Balance -800 / -391.300 0 / -391.300 240 / 240 Weight last 48 hrs Weight 101.922 kg Weight 99.79 kg Physical Exam Const: COMMON NORMALS: patient oriented x3 HENMT: COMMON NORMALS: normocephalic, atraumatic, hearing grossly normal bilaterally and external ears normal HEAD & SCALP: normocephalic and atraumatic EXTERNAL EAR: Yes external ears normal Eye: COMMON NORMALS: no scleral icterus GENERAL EYE: appearance normal, both eyes and all related structures Chest: COMMONS NORMALS: normal inspection of the chest and normal palpation of entire chest wall CHEST: Yes Symmetrical chest wall rise Resp: COMMON NORMALS: normal respiratory effort, No retractions, No use of accessory muscles and clear to auscultation bilaterally EFFORT & INSPECTION: Yes symmetric chest movement AUSCULTATION: clear to auscultation bilaterally Cardio: COMMON NORMALS: regular rate, regular rhythm, S1 normal heart sound present, S2 normal heart sound present, No gallops present (Cardio), No murmurs present (Cardio), No rub (Cardio) and Peripheral pulses 2+ throughout RATE: regular rate RHYTHM: regular rhythm HEART SOUNDS: S1 normal heart sound present and S2 normal heart sound present PERIPHERAL PULSES: Peripheral pulses 2+ throughout GI: COMMON NORMALS: Normal to inspection, nondistended, normoactive bowel sounds present, Soft to palpation, non-tender, No hepatosplenomegaly present and no masses AUSCULTATION: Yes normoactive bowel sounds PALPATION: Yes Soft to palpation and Yes No hepatosplenomegaly present RECTAL EXAM: Yes deferred Extremity: COMMON NORMALS: no clubbing, cyanosis or edema and no pedal edema Neuro: COMMON NORMALS: patient oriented x3 Data : 01/13/22 03:46 01/13/22 03:46 A&P Assessment and plan (1) 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 transplanted heart: [place] heart Qualified Code(s): I25.110 - Atherosclerotic heart disease of [place] coronary artery with unstable angina pectoris (4) Dyslipidemia: On statin therapy Continue statin Check lipid panel Status: Chronic (5) Hypertension: On increased dose of lisinopril, beta-blockade and isosorbide at home Presently on nitroglycerin drip, continuing beta-blockade and holding lisinopril Monitor response Status: Chronic Qualifiers: Hypertension type: primary hypertension Qualified Code(s): I10 - Essential (primary) hypertension (6) Diabetes mellitus: Chronically on Metformin and glipizide, hemoglobin A1c earlier this month 9.2 Hold both oral medications Sliding scale insulin as needed Status: Chronic Qualifiers: Diabetes mellitus complication status: with hyperglycemia Diabetes mellitus residential insulin use: without meterman use Diabetes mellitus type: type 2 Qualified Code(s): E11.65 - Type 2 diabetes mellitus with hyperglycemia (7) NSTEMI (non-ST elevated myocardial infarction): Status: Acute Plan #NSTEMI: Patient presented with chest pain worsening shortness of breath. Known prior history of coronary artery disease. Troponin trend has shown significant delta Recent 2D echo: Showed normal LV size and systolic function, LVEF 55%,hypokinesis of basal to apical inferior trimble. Normal diastolic function.Normal right ventricular size and systolic function. Mild mitral valve regurgitation. Follow limited 2D echo Continue telemetry monitoring Continue aspirin, statin beta-yancy, heparin drip has been discontinued and has been switched to Lovenox subcu therapeutic, nitro drip has been stopped, continue Continue home hydrocodone . As needed morphine if needed for severe chest pain. Recent coronary angiogram, which has shown 60% left main stenosis which has been confirmed through IVUS as well as multiple serial lesions of the RCA between 80 and 90% extending down to the bifurcation.LAD and circumflex have noncritical disease, initially he denied CABG , at one point in time PCI was considered, but cardiology is of the opinion . He is not a good candidate for PCI, should undergo CABG, patient has agreed for it. Appreciate cardiology as well as cardiothoracic surgery input. #History of coronary artery disease: #CKD stage III: Currently serum creatinine is baseline. Monitor BMP Avoid nephrotoxic's Intake output charting #Normocytic Iron deficiency anemia: Serum iron: 21, percentage saturation:6.5, TIBC:319 Serum ferritin: Currently the H&H has dropped to 7.6/26, patient denies any BRBPR, dark stool, hematuria. Plan is to start IV iron. Continue to monitor H&H as the patient is on therapeutic anticoagulation. #Diabetes: SSI, FSG , diabetic diet. #DVT prophylaxis: On Lovenox # Full code Attestations Medical Necessity Statement*: Patient needs to be in hospital for management of NSTEMI. 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 transplanted heart: [place] heart Dyslipidemia E78.5 Hypertension I10 Hypertension type: primary hypertension Diabetes mellitus E11.65 Diabetes mellitus complication status: with hyperglycemia Diabetes mellitus meterman insulin use: without residential use Diabetes mellitus type: type 2 NSTEMI (non-ST elevated myocardial infarction) I21.4
[2022-01-13] MEDS: bisacodyl 5 mg Tablet 10 MG PO (08:21)
[2022-01-13] MEDS: pantoprazole DR 40 mg Tablet PO (08:21)
[2022-01-13] MEDS: docusate sodium 100 mg Capsule PO (08:21)
[2022-01-13] MEDS: metoprolol tartrate 25 mg Tablet PO ×2 (08:21→18:05)
[2022-01-13] MEDS: aspirin 81 mg EC Tablet PO (08:21)
--- NOTE | 2022-01-13 08:39 | USCV_ITS ---
Jordan Henriquez Age: 61 Gender: M : 1960 Exam Date: 01/13/2022 10:53 Ordering Phys: Hal Posey MD Technologist: KATHRYN [place] [facility] [place]: f/u limited echo only. s/o SOB. BP: 137 / 71 HR: 64 Rhythm: Sinus Technical Quality: Adequate MEASUREMENTS (Male / Female) Normal Values 2D ECHO LV Diastolic Diameter PLAX 4.8 cm 4.2 - 5.9 / 3.9 - 5.3 cm LV Systolic Diameter PLAX 2.8 cm IVS Diastolic Thickness 1.7 cm 0.6 - 1.0 / 0.6 - 0.9 cm IVS Systolic Thickness 2.0 cm LVPW Diastolic Thickness 1.4 cm 0.6 - 1.0 / 0.6 - 0.9 cm LVPW Systolic Thickness 1.9 cm LVOT Diameter 2.3 cm LV Ejection Fraction 2D Teich 72.5 % LV Ejection Fraction MOD 2C 76.4 % LV Ejection Fraction 2C AL 76.3 % LA Diameter 3.9 cm LA Width 3.6 cm LA Height 5.0 cm RA Width 3.8 cm RA Height 3.9 cm Aorta at Sinotubular Diameter 3.3 cm M-MODE Aortic Annulus Diameter 3.6 cm LA Ao Ratio MM 1.1 MV E Point Septal Separation 0.4 cm FINDINGS Left Ventricle Normal left ventricular size, systolic function and upper normal wall thickness. There is hypokinesis of entire inferior and mid inferoseptal and apical septal trimble. Right Ventricle Normal right ventricular size and systolic function. Right Atrium Normal right atrial size. Left Atrium Mildly increased left atrial size. Mitral Valve Structurally normal mitral valve. No mitral valve stenosis. Aortic Valve Aortic valve not well visualized. Tricuspid Valve Structurally normal tricuspid valve. Pulmonic Valve Pulmonic valve not well visualized. Pericardium No pericardial effusion. Pleural effusion. Aorta Normal size aortic root and mildly dilated proximal ascending aorta measured at 42 mm. CONCLUSIONS 1. This is a limited echocardiogram. 2. Normal left ventricular size, systolic function and upper normal wall thickness. There is hypokinesis of entire inferior and mid inferoseptal and apical septal trimble. 3. There may not have been any significant change when compared to previous study dated 12/31/2021. Marija Rossi MD (Electronically Signed) Final Date: 13 January 2022 19:23 S
--- NOTE | 2022-01-13 08:41 | PC.NURSE ---
Dr quintanilla at bedside for rounding with Patient discussing Plan of care with patient instructions received at bedside stop heparin start lovenox 1mg/kg 2 hours after stopping heparin; schedule limited Echo for this day
--- NOTE | 2022-01-13 09:10 | PC.NURSE ---
Patient took a shower and was able to independently.
[2022-01-13] MEDS: enoxaparin 100 mg/mL Syringe SUBCUT ×2 (11:16→20:45)
[2022-01-13 11:31] LABS: Glucose Point of Care 245 mg/dL (70-110)
[2022-01-13] MEDS: insulin lispro 100 unit/1 mL SUBCUT (11:59)
[2022-01-13] MEDS: ferric gluconate 125 MG in sodium chloride 0.9% (100 ml) 100 ML 110 MG IV (16:12)
[2022-01-13 16:31] LABS: Glucose Point of Care 117 mg/dL (70-110)
--- NOTE | 2022-01-13 17:46 | P.PN_ITS ---
Subjective Subjective: Patient is doing well. No complaints of chest pain or shortness of breath this AM. Vitals/I&O/Wt Last Vital Signs Temp 97.0 F L 01/13/22 15:14 Pulse 63 01/13/22 15:14 Resp 17 01/13/22 15:14 BP 125/64 01/13/22 15:14 Pulse Ox 96 01/13/22 15:14 01/13/22 01/13/22 01/13/22 06:59 14:59 22:59 Intake Total 500 / 1008.700 432.858 / 432.858 240 / 672.858 Output Total 500 / 1400 410 / 410 Balance 0 / -391.300 432.858 / 432.858 -170 / 262.858 Weight last 48 hrs Weight 224 lb 11.2 oz Weight 220 lb Physical Exam Narrative: GENERAL: Patient is alert, respiratory distress sitting up using accessory muscles. NECK: No jugular vein distension. [] HEENT: No cyanosis. No icterus. No pallor. [] HEART: Tachycardic, S1 plus S2. LUNGS: Crackles. ABDOMEN: Soft, nontender and nondistended. Positive bowel sounds. No guarding, rebound or tenderness. [] CENTRAL NERVOUS SYSTEM: Grossly nonfocal. [] EXTREMITIES: Lower extremities with 1+ edema bilaterally. Pulses palpable in the lower extremities, both dorsalis pedis and posterior tibial. [] Data : 01/13/22 03:46 01/13/22 03:46 A&P Assessment and plan (1) CAD (coronary artery disease): Status: Chronic Qualifiers: Coronary Disease-Associated Artery/Lesion type: [place] artery [place] vs. 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 terminal manager insulin use: without intermediate use Diabetes mellitus complication status: with hyperglycemia Qualified Code(s): E11.65 - Type 2 diabetes mellitus with hyperglycemia (4) Stenosis of left main coronary artery: Status: Chronic (5) Hypertension: Status: Chronic Qualifiers: Hypertension type: primary hypertension Qualified Code(s): I10 - Essential (primary) hypertension Plan Patient with known left main stenosis and RCA stenosis who had recent non-ST elevation NM and opted for medical therapy only has presented again with typical chest pain symptoms and found to have NSTEMI again with significant elevation of troponins. Continue aspirin and heparin Nitro gtt for pain relief as needed ECHO shows preserved cardiac function Dr Shell consulted again for discussing possible CABG. Alternate option will be to revascularize RCA which is the culprit vessel during this admission and consider CABG later. We will have this discussion after Dr Shell sees patient Hold Plavix for now. Thank you for involving us with care of this patient. We will continue to follow. Please call with questions. Attestations Medical Necessity Statement*: Care expected to cross 2 midnights. 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 transplanted heart: [place] heart Associated angina: with unstable angina Chest pain I20.0 Chest pain type: chest pain due to myocardial ischemia Ischemic chest pain type: unstable angina pectoris Diabetes mellitus E11.65 Diabetes mellitus type: type 2 Diabetes mellitus assistant terminal manager insulin use: without intermediate use Diabetes mellitus complication status: with hyperglycemia Stenosis of left main coronary artery I25.10 Hypertension I10 Hypertension type: primary hypertension
--- NOTE | 2022-01-13 19:30 | PM.CONSULT ---
Providers/Reason For Consult Consulting Physician/Specialty*: Dr. Shell/cardiothoracic surgery Reason for Consult*: Coronary artery disease Requesting Physician: Dr. Rojas Attending Physician: Hal Posey MD Primary Care Provider: Tejas Wu DO History of Present Illness History of Present Illness Jordan Henriquez is a 61 year old male whom I saw in consultation back on December 31 after presenting to the emergency department on that same day with complaints of left-sided arm discomfort and substernal chest pain. He was evaluated and found to have ST depressions in the lateral leads and an elevated delta troponin. He was seen by Dr. Rojas and underwent a left heart catheterization which revealed a 60% left main stenosis which was confirmed by IVUS as well as multiple serial lesions of the RCA between 80 and 90% extending down to the bifurcation. His LAD and circumflex vessel had noncritical disease. Transthoracic echocardiogram revealed preserved LV function with hypokinesia of the basal to apical and inferior wall. He had normal right ventricular size and systolic function and mild mitral valve regurgitation. Due to his left main stenosis, I was consulted to consider potential for surgical revascularization. After lengthy conversation with Mr. Henriquez and his , he was to delay CABG or intervention to the RCA as he was preparing to move to [place]. He stated he would seek further medical direction once he had arrived there. He presented back to [facility] yesterday complaining of increasing shortness of breath with nausea and one episode of emesis. He also complained of chest pain the morning of presentation. Initial presenting EKG revealed no ST elevation or substantial changes. He was tachycardic. He was given nitroglycerin and heparin and his chest discomfort and dyspnea improved. He also received diuresis upon presentation. He states his breathing is improved and he has no further chest discomfort though he does wish to discuss further options for therapy for his coronary artery disease. Dr. Rojas has requested that I did discuss with Mr. Henriquez consideration for CABG. Review of Systems Const: Denies: fever(s), chills, change in appetite, change in weight, fatigue or night sweats Eyes: Denies: change in vision or blurry vision ENMT: Denies: odynophagia or hoarseness Card: Reports: chest pain, edema, dyspnea on exertion and orthopnea; Denies: palpitations or irregular heart rhythm Resp: Reports: dyspnea; Denies: productive cough or hemoptysis GI: Denies: abdominal pain, nausea, vomiting, dysphagia, heartburn or change in bowel habits : Denies: difficulty urinating, dysuria, urinary frequency, urinary urgency or urinary hesitancy Musc: Denies: extremity pain or extremity swelling Skin/Breast: Denies: rash Neuro: Denies: headache(s), numbness in extremities, weakness in extremities or sensory changes Psych: Denies: anxiety, depression or change in appetite Endo: Denies: polyuria, polydipsia or cold intolerance Chris/Lymph: Denies: easy bruising, easy bleeding, petechiae or enlarged lymph nodes Medications/Allergies Home Medications Medication Instructions Recorded Confirmed Last Taken Type glipizide 10 mg tablet, extended 10 mg PO BEDTIME 02/12/20 01/12/22 01/11/22 History release 24 hr metformin 1,000 mg tablet 1,000 mg PO BEDTIME 02/12/20 01/12/22 01/11/22 History sildenafil 100 mg tablet 100 mg PO DAILY PRN #20 tab 02/16/20 01/12/22 Unknown Rx hydrocodone 5 mg-acetaminophen 325 1 tab PO Q4H PRN 3 Days #12 tab 12/12/20 01/12/22 Unknown Rx mg tablet aspirin 81 mg tablet,delayed 81 mg PO DAILY #60 tab 01/01/22 01/12/22 01/12/22 Rx release atorvastatin 80 mg tablet 80 mg PO DAILY #60 tab 01/01/22 01/12/22 01/12/22 Rx clopidogrel 75 mg tablet (Plavix) 75 mg PO DAILY #60 tab 01/01/22 01/12/22 01/12/22 Rx isosorbide mononitrate 30 mg 30 mg PO DAILY #60 tab 01/01/22 01/12/22 01/12/22 Rx tablet,extended release 24 hr lisinopril 10 mg tablet 10 mg PO DAILY #60 tab 01/01/22 01/12/22 01/12/22 Rx metoprolol tartrate 25 mg tablet 25 mg PO BID #60 tab 01/01/22 01/12/22 01/12/22 Rx potassium citrate 15 mEq (1,620 15 meq PO DAILY 01/12/22 01/12/22 01/12/22 History mg) tablet,extended release Allergies Allergy/AdvReac Type Severity Reaction Status Date / Time adhesive AdvReac Unknown Verified 01/07/22 08:23 Current Medications Generic Name Dose Route Start Last Admin Trade Name Freq PRN Reason Stop Dose Admin Aspirin 81 mg 01/13/22 09:00 01/13/22 08:21 Aspirin 81 Mg Ec Tablet PO 81 mg DAILY MAGALY Administration Atorvastatin Calcium 80 mg 01/12/22 21:00 01/12/22 20:56 Atorvastatin 40 Mg Tablet PO 80 mg BEDTIME MAGALY Administration Bisacodyl 10 mg 01/12/22 15:57 01/13/22 08:21 Bisacodyl 5 Mg Tablet PO 10 mg DAILY PRN Administration Constipation (see protocol) Protocol Docusate Sodium 100 mg 01/12/22 18:00 01/13/22 16:27 Docusate Sodium 100 Mg Capsule PO Not Given BID MAGALY Enoxaparin Sodium 100 mg 01/13/22 10:30 01/13/22 11:16 Enoxaparin 100 Mg/Ml Syringe 1 mg/kg (100 mg) 100 mg SUBCUT Administration Q12H [facility] Nitroglycerin/Dextrose 50 mg in 250 mls @ 0 mls/hr 01/12/22 09:30 01/13/22 07:00 Nitroglycerin Drip IV Infused .Q0M MAGALY Titration Protocol Per Protocol Ferric Sodium Gluconate 125 mg 110 mls @ 110 mls/hr 01/13/22 16:00 01/13/22 17:59 / Sodium Chloride IV 01/20/22 16:59 Infused Q24H MAGALY Infusion Insulin Human Lispro 0 unit 01/12/22 21:00 01/12/22 21:02 Insulin Lispro 100 Unit/1 Ml SUBCUT 1 unit BEDTIME MAGALY Administration Protocol Insulin Human Lispro 0 unit 01/12/22 18:00 01/13/22 16:28 Insulin Lispro 100 Unit/1 Ml SUBCUT Not Given TIDWM [facility] Protocol Metoprolol Tartrate 25 mg 01/12/22 18:00 01/13/22 18:05 Metoprolol Tartrate 25 Mg Tablet PO 25 mg BID MAGALY Administration Pantoprazole Sodium 40 mg 01/13/22 09:00 01/13/22 08:[address] 40 Mg Tablet PO 40 mg DAILY MAGALY Administration PFSH Acute PFSH: Medical History CAD (coronary artery disease) Dental caries Diabetes mellitus Dyslipidemia Erectile dysfunction due to diseases classified elsewhere Hypertension Urolithiasis Surgical History H/O neck surgery H/O repair of rotator cuff History of ankle surgery History of lithotripsy History of surgery on arm Family History Other CAD (coronary artery disease) Social History Smoking and tobacco status: never smoked Alcohol intake: current Alcohol intake frequency: holidays/special occasions only Substance/Drug Use: never Adopted: No Household members: spouse Marital status: Current occupational status: disabled Current gender identity: Male Vitals/I&O/Wt Last Vital Signs Temp 97.0 F L 01/13/22 15:14 Pulse 63 01/13/22 15:14 Resp 17 01/13/22 15:14 BP 125/64 01/13/22 15:14 Pulse Ox 96 01/13/22 15:14 01/13/22 01/13/22 01/13/22 06:59 14:59 22:59 Intake Total 500 / 1008.700 432.858 / 432.858 350 / 782.858 Output Total 500 / 1400 410 / 410 Balance 0 / -391.300 432.858 / 432.858 -60 / 372.858 Weight last 48 hrs Weight 224 lb 11.2 oz Weight 220 lb Physical Exam Const: COMMON NORMALS: patient oriented x3 HENMT: COMMON NORMALS: normocephalic, atraumatic, hearing grossly normal bilaterally and external ears normal HEAD & SCALP: normocephalic and atraumatic EXTERNAL EAR: Yes external ears normal Eye: COMMON NORMALS: Equal, round and reactive pupils present, EOMs intact bilaterally and conjunctivae normal CONJUNCTIVA: Yes conjunctivae normal PUPIL: Yes Equal, round and reactive pupils present Neck/C-Spine: COMMON NORMALS: full ROM and no lymphadenopathy Resp: COMMON NORMALS: normal respiratory effort, No retractions, No use of accessory muscles and clear to auscultation bilaterally AUSCULTATION: clear to auscultation bilaterally Cardio: COMMON NORMALS: regular rate, regular rhythm, S1 normal heart sound present and No murmurs present (Cardio) RATE: regular rate RHYTHM: regular rhythm HEART SOUNDS: S1 normal heart sound present Extremity: COMMON NORMALS: capillary refill normal NARRATIVE EXTREMITY EXAM: Trace to 1+ pretibial edema Neuro: COMMON NORMALS: patient oriented x3, moves all extremities, no focal motor deficits and no sensory deficits noted Psych: COMMON NORMALS: mental status grossly normal MOOD & AFFECT: Yes anxious Data : 01/13/22 03:46 01/13/22 03:46 A&P Assessment and plan (1) CAD (coronary artery disease): Have again reviewed his left heart catheterization from December 31. I have conferred with my colleague Dr. Rojas. It is my impression that most of his symptoms are probably related to the multiple lesions of the RCA though clearly he has been well documented to have about a 60% left main stenosis. Unfortunately, our ICU has no available beds and we have no immediate nursing personnel with adequate postoperative experience in open heart surgery patients. I discussed this very frankly with Mr. Henriquez and his was present during my last visit. I did discuss the option to try to help with arrangements for transfer to a tertiary facility which may have appropriate personnel and ICU availability to care for the postop CABG patient. Another option will be to consider intervention to the RCA. Dr. Rojas has been gracious enough to discuss this further also with Mr. Henriquez and his . Status: Chronic Qualifiers: Coronary Disease-Associated Artery/Lesion type: [place] artery [place] vs. transplanted heart: [place] heart Associated angina: with unstable angina Qualified Code(s): I25.110 - Atherosclerotic heart disease of [place] coronary artery with unstable angina pectoris Consult Attestations Medical Necessity Statement: Recurrent chest pain with documented left main stenosis and multiple RCA stenoses. 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 transplanted heart: [place] heart Associated angina: with unstable angina Time Spent (min) 30
--- NOTE | 2022-01-13 19:37 | PC.NURSE ---
Received report from ROIHNI Francois. Patient sitting on edge of bed with spouse at bedside. Dr Shell in to see patient. Denies need for pain control at this time. No other distresses observed. Will continue to monitor.
[2022-01-13] MEDS: atorvastatin 40 mg Tablet 80 MG PO (20:45)
[2022-01-14] VITALS (59 sets, daily range): BP systolic 116–176; BP diastolic 54–86; PULSE 57–88; RESP 13–23; TEMP 36.5–36.8; O2SAT 89–97
[2022-01-14 04:06] LABS: Basophils # 0.1 10^3/uL (0.0-0.1); Eosinophils # 0.5 10^3/uL (0.0-0.8); Eosinophils % 5.6 %; Hematocrit 26.7 % (42.0-52.0); Hemoglobin 7.7 g/dL (11.7-16.6); Lymphocytes # 2.2 10^3/uL (0.8-4.8); Lymphocytes % 26.7 %; Mean Corpuscular HGB Conc 28.8 g/dL (30.0-36.0); Mean Corpuscular Hemoglobin 22.5 pg (28.0-34.0); Mean Corpuscular Volume 78.1 fl (80-94); Mean Platelet Volume 9.9 fL (7.4-10.4); Monocytes # 0.9 10^3/uL (0.2-0.9); Monocytes % 11.2 %; Neutrophils # 4.53 10^3/uL (1.8-7.7); Neutrophils % 55.1 %; Nucleated Red Blood Cells % 0 %; Platelet Count 449 10^3/cmm (130-400); Red Blood Count 3.42 10^6/uL (4.1-5.3); Red Cell Distribution Width 15.9 % (12.1-15.1); White Blood Count 8.2 10^3/uL (4.0-10.0)
[2022-01-14 04:40] LABS: Anion Gap 15.7 (5-19); Blood Urea Nitrogen 26 mg/dL (8-23); Calcium 8.5 mg/dL (8.5-10.5); Carbon Dioxide 21 mmol/L (22-29); Chloride 107 mmol/L (98-107); Glomerular Filtration Rate 61.1 mL/min (90-130); Glucose 133 mg/dL (65-115); Osmolality Calculated 295 mOsm/kg (285-295); Potassium 4.7 mmol/L (3.5-5.1); Sodium 139 mmol/L (136-145)
[2022-01-14 04:50] LABS: Ferritin 34 ng/mL (30-400)
[2022-01-14 06:52] LABS: Glucose Point of Care 120 mg/dL (70-110)
[2022-01-14] MEDS: aspirin 81 mg EC Tablet PO (08:24)
[2022-01-14] MEDS: pantoprazole DR 40 mg Tablet PO (08:24)
[2022-01-14] MEDS: metoprolol tartrate 25 mg Tablet PO (08:24)
[2022-01-14] MEDS: acetaminophen 325 mg Tablet 650 MG PO (08:27)
--- NOTE | 2022-01-14 10:36 | XACV_ITS ---
Exam Room: [facility] Ht: 178 cm Wt: 100 kg BSA: 2.25 m2 Gender: Male : 1960 Any Known Allergies: Other Exam Priority: Routine Indication(s): - Non-ST elevation ME Procedure(s): Procedure Description: Diagnostic procedure Procedure Description: PCI procedure Procedure Description: Coronary IVUS Procedure Description: Drug Eluting Coronary Stent Procedure Description: PTCA Procedure Description: Coronary Atherectomy Procedure Description: Miscellaneous Procedure Description: ACT Diagnostic Cath Status: Urgent Diagnostic Findings * INDICATION: Patient has distal left main disease and multiple stenosis in the RCA. We had recommended CABG. On his last admission patient wanted to be medically managed. He was discharged and came back with pulmonary edema and NSTEMI. CT surgery discussed with patient and informed him that for CABG there will be a delay of few days secondary to insufficient ICU staff for postop care. Alternate option of PCI of RCA which is the likely culprit for his NSTEMI was given to the patient by Dr Shell. This morning I had a discussion with patient. I discussed the option of transferring him out to another center for CABG versus PCI of RCA at this time with staged revascularization of left main artery which is borderline severe. After discussing risks and benefits, the patient has opted for PCI of RCA. Risks and benefits of the procedure were discussed. Risks including bleeding, infection, kidney function worsening, heart attack, stroke, coronary artery perforation/dissection were discussed. Need for emergent surgery was also discussed. Patient understands the risks and benefits and wants to proceed with the procedure. * This was a staged PCI of RCA. Left main artery was not engaged. * RCA: Has severe , multisegment, heavily calcified disease in the proximal to distal segment. There is 80-90% stenosis in the proximal vessel. In the mid to distal segment multiple areas of 80-90% stenosis. In the distal RCA into the bifurcation there is a 80-90% stenosis. * Coronary angiography shows right dominance. PCI Status: Urgent PCI Indication: NSTE - ACS Interventional Findings * PROCEDURE DETAIL: We engaged RCA with JR4 guide catheter. 0.014 run-through guidewire was used to cross the stenosis. Initial attempt at performing IVUS was not successful because of heavy calcification as it could not cross the stenosis. However diameter of proximal vessel was noted. Then performed balloon angioplasty starting from distal lesion to proximal with 2.25 x 20 mm semicompliant balloon. However the stenosis seemed very calcified and did not yield to the balloon. At this time we decided to perform orbital arthrectomy as there was no visible dissection post balloon inflations. Viper wire was used to cross the lesions and was put in PDA. Multiple runs of orbital arthrectomy were performed to modify of proximal to distal vessel. This first followed by a predilation with a 2.5 x 12 mm semicompliant balloon and then by 2.75 x 20 mm semicompliant balloon. We then placed a 2.5 x 30 mm resolute [place] drug-eluting stent in mid to distal segment. This was followed by placement of 3.0 x 38 mm resolute [place] drug-eluting stent in proximal to mid segment overlapping with the initial stent. We postdilated the stent with 3.25 x 12 mm noncompliant balloon. At this time we placed another stent in distal RCA into PDA. We then performed final angiogram that showed excellent stent expansion, no residual stenosis and LEIDY-3 flow. Guidewire and guide catheter were removed. Patient left the Cvt Rn in a stable condition. * Proximal Right Coronary Artery to Mid Right Coronary Artery: 90% stenosis treated with a AB TREK 2.25X20 RX BALLOON, AB TREK 2.50X12 RX BALLOON, AB TREK 2.75X20 RX BALLOON, MDT R NIRALI 3.0X38 OFELIA, and MDT NC EUPHORA RX [id number] BALLOON. 0% residual stenosis, LEIDY: 3 flow. * Mid Right Coronary Artery to Distal Right Coronary Artery: 90% stenosis treated with a AB TREK 2.25X20 RX BALLOON, AB TREK 2.75X20 RX BALLOON, MDT R NIRALI 2.5X30 OFELIA, and MDT NC EUPHORA RX 3.73Q19CV BALLOON. 0% residual stenosis, LEDIY: 3 flow. * Distal Right Coronary Artery: 90% stenosis treated with a Drug Eluting Stent. 0% residual stenosis, LEIDY: 3 flow. * Posterior Descending Right: 80% stenosis treated with a MDT R NIRALI 2.5X18 OFELIA. 0% residual stenosis, LEIDY: 3 flow. Conclusions 1. Severe multisegment stenosis of proximal, mid and distal RCA status post revascularization with OFELIA x3. Recommendations * Continue aspirin and Plavix. * High intensity statin therapy. * Will need outpatient follow up with CT surgery for surgical revascularization of the left main artery. * Outpatient cardiology follow up in 1-2 weeks. Interventional RX Recommendation: PCI w/o planned CABG Diagnostic RX Recommendation: PCI w/o planned CABG Anticoagulation: Heparin Pressures Phase:Rest AO : 77 / 32 ( 47 ) @ 9:14:00 AM 99 / 47 ( 66 ) @ 9:14:00 AM 136 / 55 ( 86 ) @ 9:31:00 AM 106 / 88 ( 98 ) @ 9:52:00 AM 130 / 71 ( 97 ) @ 9:57:00 AM 136 / 78 ( 105 ) @ 10:02:00 AM 139 / 68 ( 98 ) @ 10:09:00 AM 96 / 41 ( 63 ) @ 10:13:00 AM 118 / 53 ( 79 ) @ 10:23:00 AM 145 / 66 ( 99 ) @ 10:31:00 AM 80 / 44 ( 60 ) @ 10:36:00 AM Clinical Evaluation EBL: 5mL-10mL Procedural Details Pre-Procedure Time Out. Identified patient by full name and date of as verbalized by the patient/guarantor. Does the consent match the physician's order: Yes. Accurate & Complete Informed Consent: Yes. Inpatient/Outpatient History & Physical on Chart: Yes. If H&P is completed, is and addenduem needed: No; If yes, is the addendum complete: N/A. Visualize and Verify Site with Patient/Guarantor: N/A. Relevant Radiology Images available: Yes. Pre-op teaching completed and patient verbalized understanding. The risks, benefits, and alternatives of sedation and/or procedure were discussed by physician. The patient agrees to continue. Procedure started. Admit Source: In Patient. Current Diagnosis : NSTEMI. [facility] Clinical Fraility Score: 3: Managing Well. Cvt Rn Indications: ACS > 24 hours, NONSTEMI. Chest Pain Symptom Assessment: Typical Angina Symptoms. Cardiovascular Instability: No, stable. Correct patient, site and procedure confirmed by cath team. Current diagnosis: NSTEMI. PERRLA. Strong, equal hand inspector type bilaterally. Lungs clear x 5 lobes. IV Site on Arrival: 20 gauge in the left anticubital. IV Fluids: 0.9% NaCl at KVO. 0 mL infused prior to phlebotomist medical lab assistant. Pre Procedural Pulses: bilateral radial was 2+. Pre Procedural Pulses: bilateral posterior tibial was Doppled. Pre Procedural Pulses: bilateral dorsalis pedis was Doppled. Oxygen started at 2liters/min via nasal canula. Physician notified. Baseline sample Acquired. HR: 0 BPM. bilateral groins was prepped with chloroprep then draped in the usual sterile fashion. Baseline sample Acquired. HR: 0 BPM. Physician arrived. MD updated family. Physician scrubbed in. Immediate Pre-Procedure Time Out. Correct Patient: Yes; Correct Procedure: Yes; Correct Site: Yes; Correct Patient Position: Yes; Correct Supplies: Yes; Dried Flammable Prep: Yes; Blood Products Available: N/A;. Lidocaine 1% infiltrated to the right groin. Arterial access obtained with micropuncture set. 6 polish JR 4 guide catheter was inserted over the wire. Inventory is CRD 6FR JR 4 GUIDE 100cm. Equipment: 6F - Femoral. Cardiac Cath Pack. ACIST Manifold Kit Model BT 2000. Heparinized Saline (2 units/mL), 1000 mL bag. Kit, Micropuncture. Inventory is: Copilot, endoflator, Runthrough wire. Guide seated in the RCA. Runthrough guidewire was advanced through the guide catheter to lesion in the mid RCA. Inflation number : 1 A AB TREK 2.25X20 RX BALLOON was prepped and advanced across the Mid RCA , then inflated to 12 KATHRIN for 0:28 seconds. Inflation number: 2 The AB TREK 2.25X20 RX BALLOON was reinflated across the Mid RCA, to 12 KATHRIN for 0:31 seconds. Inflation number: 3 The AB TREK 2.25X20 RX BALLOON was reinflated across the Mid RCA, to 12 KATHRIN for 0:24 seconds. Inflation number: 1 The AB TREK 2.25X20 RX BALLOON was reinflated across the Prox RCA, to 12 KATHRIN for 0:27 seconds. Balloon out over the wire. Angiography performed. ACT drawn. Results 407 seconds. Therapeutic limits - pre-heparin administration 90-150 seconds and monitoring heparin during a vascular procedure >250 seconds. IVUS CATHETER INSERTED OVER THE WIRE. IVUS of proximal RCA performed. IVUS catheter removed. Inflation number : 2 A AB TREK 2.50X12 RX BALLOON was prepped and advanced across the Prox RCA , then inflated to 12 KATHRIN for 0:35 seconds. Angiography performed. Balloon out over the wire. ACT drawn. Results 241 seconds. Therapeutic limits - pre-heparin administration 90-150 seconds and monitoring heparin during a vascular procedure >250 seconds. Inventory: CSI diamondback 1.25 tonie and Viperwire advance coronary guide wire. Coronary Viperwire inserted to the lesion in the RCA. Viperwire advanced across the lesion. Runthrough wire removed. Angiography performed. Elisa scrubbed in to assist with Atherectomy. Lidocaine 1% infiltrated to the right groin. Venous access obtained with a micropuncture set. CSI coronary 1.25 tonie inserted over the coronary viper wire. Atherectomy of the RCA performed. Results checked. Atherectomy of the RCA performed. Results checked. Atherectomy of the RCA performed. Results checked. Atherectomy of the RCA performed. Results checked. Atherectomy of the RCA performed. Results checked. Atherectomy of the RCA performed. Results checked. CSI tonie removed over the wire. Results checked. Teleport catheter inserted over the wire. Viper wire removed. 300cm Runthrough wire inserted through the teleport catheter. Teleport catheter removed. Elisa Echevarria as monitor. IVUS catheter inserted OTW. IVUS catheter out OTW. Inflation number : 4 A AB TREK 2.75X20 RX BALLOON was prepped and advanced across the Mid RCA , then inflated to 12 KATHRIN for 0:26 seconds. Inflation number: 5 The AB TREK 2.75X20 RX BALLOON was reinflated across the Mid RCA, to 12 KATHRIN for 0:35 seconds. Inflation number: 3 The AB TREK 2.75X20 RX BALLOON was reinflated across the Prox RCA, to 12 AKTHRIN for 0:33 seconds. Balloon out. ACT drawn. Results 159 seconds. Therapeutic limits - pre-heparin administration 90-150 seconds and monitoring heparin during a vascular procedure >250 seconds. Stent inserted to lesion in the mid RCA. Intact stent out OTW. Guideliner inserted OTW and advanced to the RCA. ACT drawn. Results 170 seconds. Therapeutic limits - pre-heparin administration 90-150 seconds and monitoring heparin during a vascular procedure >250 seconds. Stent inserted to lesion in the mid RCA. Inflation Number : 6 A MDT R NIRALI 2.5X30 OFELIA -Lot Number# _[id number]_ EXP: 06/09/2022 was prepped and advanced across the Mid RCA. The stent was deployed at 12 KATHRIN for 0:27 seconds. Heraclio Echevarria in for Polly Morton as scrub. Yana Dacosta in for Gabo Goodwin as community health promoter. Stent balloon out over wire. Results checked. Inflation Number : 4 A MDT R NIRALI 3.0X38 OFELIA -Lot Number# _[id number]_ EXP: 06/18/2024 was prepped and advanced across the Prox RCA. The stent was deployed at 12 KATHRIN for 0:32 seconds. Stent balloon out over wire. Results checked. 2.5x18mm [place] Stent inserted to lesion in the PDA. Inflation Number : 1 A MDT R NIRALI 2.5X18 OFELIA -Lot Number# _[id number]_ EXP: 09/15/2024 was prepped and advanced across the R PDA. The stent was deployed at 14 KATHRIN for 0:32 seconds. Stent balloon out over wire. ACT drawn. Results 240 seconds. Therapeutic limits - pre-heparin administration 90-150 seconds and monitoring heparin during a vascular procedure >250 seconds. Results checked. Inflation number : 7 A MDT NC EUPHORA RX 3.49M89NG BALLOON was prepped and advanced across the Mid RCA , then inflated to 12 KATHRIN for 0:12 seconds. Inflation number: 8 The MDT NC EUPHORA RX 3.69N88TU BALLOON was reinflated across the Mid RCA, to 16 KATHRIN for 0:20 seconds. Inflation number: 5 The MDT NC EUPHORA RX 3.20F25FP BALLOON was reinflated across the Prox RCA, to 16 KATHRIN for 0:33 seconds. Inflation number: 6 The MDT NC EUPHORA RX 3.38Z71KK BALLOON was reinflated across the Prox RCA, to 16 KATHRIN for 0:20 seconds. Inflation number: 7 The MDT NC EUPHORA RX 3.01S27US BALLOON was reinflated across the Prox RCA, to 18 KATHRIN for 0:13 seconds. Inflation number: 8 The MDT NC EUPHORA RX 3.22V22NK BALLOON was reinflated across the Prox RCA, to 18 KATHRIN for 0:15 seconds. Balloon out. Polly Morton in for Yana Dacosta as community health promoter. guideliner catheter out OTW. Wire out. Results checked. Guide catheter out. ACT drawn. Results 185 seconds. Therapeutic limits - pre-heparin administration 90-150 seconds and monitoring heparin during a vascular procedure >250 seconds. Sheath(s) sutured into position with 2-0 silk and sterile 4x4's and Op-site applied over the site. No oozing or signs and symptoms of hematoma noted. Arterial sheath flushed and connected to tranducer and pressure bag with heparinized saline. A Suture was successful obtaining hemostatsis at the Right Femoral vein insertion site. Post Procedure: Pulses reassessed and unchanged. PERRLA. Strong, equal hand inspector type bilaterally. No VTE prophylaxis required. Medication's Wasted: Lidocaine 1% = 2 mL. Medication's Wasted: Other = Fentanyl 50 mcg. Medication's Wasted: Nitro = 49.8 mg. Total IV fluids: 100 mL. Contrast type used: Omnipaque 300 mgI/mL, 500 mL bottle. Complications: None. Estimated blood loss: 5mL-10mL. Responsiveness - Normal response to verbal stimuli; alert and oriented, PERRLA. Airway - Unaffected, no intervention required; spontaneous ventilation. Circulation: W/N/L, pulses unchanged. Nausea/Vomiting: No. Procedure completed. Vital chart was stopped. Patient transferred by bed to 1st floor. Access Site Site: Right Femoral artery Sheath Size: 6 Fr Hemostasis Success: Unsuccessful Site: Right Femoral vein Sheath Size: 5 Fr Hemostasis Method: Suture Hemostasis Success: Successful Procedure Medications Start: 10:59 AM Stop: 10:59 AM Medication: Versed Amount: 1 mg Route: I.V. Start: 10:59 AM Stop: 10:59 AM Medication: Fentanyl Amount: 50 mcg Route: I.V. Start: 11:00 AM Stop: 11:00 AM Medication: Versed Amount: 1 mg Route: I.V. Start: 11:00 AM Stop: 11:00 AM Medication: Fentanyl Amount: 50 mcg Route: I.V. Start: 11:11 AM Stop: 11:11 AM Medication: Heparin Amount: 8000 units Route: I.V. Start: 11:16 AM Stop: 11:16 AM Medication: Versed 1 mg and Fentanyl 25 mcg Amount: 1 Route: I.V. Start: 11:20 AM Stop: 11:20 AM Medication: Versed 1 mg and Fentanyl 25 mcg Amount: 1 Route: I.V. Start: 11:30 AM Stop: 11:30 AM Medication: Heparin Amount: 2000 units Route: I.V. Start: 11:48 AM Stop: 11:48 AM Medication: Versed 1 mg and Fentanyl 25 mcg Amount: 1 Route: I.V. Start: 12:02 PM Stop: 12:02 PM Medication: Versed 1 mg and Fentanyl 25 mcg Amount: 1 Route: I.V. Start: 12:05 PM Stop: 12:05 PM Medication: Heparin Amount: 2000 units Route: I.V. Start: 12:21 PM Stop: 12:21 PM Medication: Heparin Amount: 3000 units Route: I.V. Start: 12:26 PM Stop: 12:26 PM Medication: Fentanyl Amount: 50 mcg Route: I.V. Start: 12:37 PM Stop: 12:37 PM Medication: Nitrogylcerin Amount: 200 mcg Route: I.C. Start: 12:40 PM Stop: 12:40 PM Medication: Heparin Amount: 2000 units Route: I.V. Start: 12:46 PM Stop: 12:46 PM Medication: Nitrogylcerin Amount: 200 mcg Route: I.C. Start: 12:56 PM Stop: 12:56 PM Medication: Heparin Amount: 2000 units Route: I.V. I, the attending physician, have reviewed and verified all procedure medications. Yes, all medications given per verbal order History/Risk Factors Hypertension: Yes Dyslipidemia: Yes Peripheral Arterial Disease (PAD): No Myocardial Infarction (ME): No Obesity: No Renal Disease: No Prior Interventions PCI: No CABG: No Valve Surgery: No Report Signatures Finalized by David Rojas MD on 01/27/2022 02:05 PM
--- NOTE | 2022-01-14 10:47 | W.PM.OPSUD ---
Surgery/Procedure H&P Update DATE OF PROCEDURE: January 14, 2022 DATE H&P PERFORMED: 01/12/22 H&P UPDATE INFORMATION: I have reviewed H&P completed within last 30 days, I have examined patient prior to procedure and No changes to prior documentation CHANGES TO PREVIOUS DOCUMENTATION: Patient has distal left main disease and multiple stenosis in the RCA. We had recommended CABG. On his last admission patient wanted to be medically managed. He was discharged and came back with pulmonary edema and NSTEMI. CT surgery discussed with patient and informed him that for CABG there will be a delay of few days secondary to insufficient ICU staff for postop care. Alternate option of PCI of RCA which is the likely culprit for his NSTEMI was given to the patient by Dr Shell. This morning I had a discussion with patient. I discussed the option of transferring him out to another center for CABG versus PCI of RCA at this time with staged revascularization of left main artery which is borderline severe. After discussing risks and benefits, the patient has opted for PCI of RCA. Risks and benefits of the procedure were discussed. Risks including bleeding, infection, kidney function worsening, heart attack, stroke, coronary artery perforation/dissection were discussed. Need for emergent surgery was also discussed. Patient understands the risks and benefits and wants to proceed with the procedure. PREOP DIAGNOSIS: NSTEMI PRIMARY INDICATION FOR PROCEDURE: NSTEMI/ Pulmonary edema PLANNED PROCEDURE: Left heart cath with percutaneous coronary intervention PATIENT REASSESSED PRIOR TO SEDATION, WITH NO CHANGE NOTED: Yes PHYSICAL EXAM: alert, oriented x 3, clear to auscultation bilaterally and regular rate & rhythm AIRWAY EVAL/ANESTHESIA PLAN: ASA III, Monitored Anesthesia, Local Anesthesia, Risks, benefits & alternatives of sedation and/or procedure discussed and Patient agrees to continue as planned
--- NOTE | 2022-01-14 13:17 | PM.PN ---
Subjective Subjective: Was seen and examined this morning, denied chest pain shortness of breath. His other vitals and labs have been reviewed. Medications: Medication Review Details: Generic Name Dose Route Start Last Admin Trade Name [place] PRN Reason Stop Dose Admin Aspirin 81 mg 01/13/22 09:00 01/13/22 08:21 Aspirin 81 Mg Ec Tablet PO 81 mg DAILY MAGALY Administration Atorvastatin Calci um 80 mg 01/12/22 21:00 01/12/22 20:56 Atorvastatin 40 Mg Tablet PO 80 mg BEDTIME MAGALY Administration Bisacodyl 10 mg 01/12/22 15:57 01/13/22 08:21 Bisacodyl 5 Mg T ablet PO 10 mg DAILY PRN Administration Constipation (see protocol) Protocol Docusate Sodium 100 mg 01/12/22 18:00 01/13/22 08:21 Docusate Sodium 100 Mg Capsule PO 100 mg BID MAGALY Administration Enoxaparin Sodium 100 mg 01/13/22 10:30 01/13/22 11:16 Enoxaparin 100 M g/Ml Syringe 1 mg/kg (100 mg) 100 mg SUBCUT Administration Q12H [facility] Nitroglycerin/Dext lilian 50 mg in 250 mls @ 0 mls/hr 01/12/22 09:30 01/12/22 21:[address] ip IV 5 mcg/min .Q0M MAGALY 1.5 mls/hr Administration Protocol Per Protocol Insulin Human Lisp ro 0 unit 01/12/22 21:00 01/12/22 21:02 Insulin Lispro 1 00 Unit/1 Ml SUBCUT 1 unit BEDTIME MAGALY Administration Protocol Insulin Human Lisp ro 0 unit 01/12/22 18:00 01/13/22 11:59 Insulin Lispro 1 00 Unit/1 Ml SUBCUT 6 unit TIDWM MAGALY Administration Protocol Metoprolol Tartrat e 25 mg 01/12/22 18:00 01/13/22 08:21 Metoprolol Tartr ate 25 Mg Tablet PO 25 mg BID MAGALY Administration Pantoprazole Sodiu m 40 mg 01/13/22 09:00 01/13/22 08:[address] 40 Mg Tablet PO 40 mg DAILY MAGALY Administration Vitals/I&O/Wt Last Vital Signs Temp 98.3 F 01/14/22 08:00 Pulse 58 L 01/14/22 08:00 Resp 16 01/14/22 08:00 BP 137/65 01/14/22 08:00 Pulse Ox 97 01/14/22 08:00 01/13/22 01/14/22 01/14/22 22:59 06:59 14:59 Intake Total 470 / 902.858 Output Total 410 / 410 Balance 60 / 492.858 Weight last 48 hrs Weight 100.335 kg Weight 101.922 kg Physical Exam Const: COMMON NORMALS: patient oriented x3 HENMT: COMMON NORMALS: normocephalic, atraumatic, hearing grossly normal bilaterally and external ears normal HEAD & SCALP: normocephalic and atraumatic EXTERNAL EAR: Yes external ears normal Eye: COMMON NORMALS: no scleral icterus GENERAL EYE: appearance normal, both eyes and all related structures Chest: COMMONS NORMALS: normal inspection of the chest and normal palpation of entire chest wall CHEST: Yes Symmetrical chest wall rise Resp: COMMON NORMALS: normal respiratory effort, No retractions, No use of accessory muscles and clear to auscultation bilaterally EFFORT & INSPECTION: Yes symmetric chest movement AUSCULTATION: clear to auscultation bilaterally Cardio: COMMON NORMALS: regular rate, regular rhythm, S1 normal heart sound present, S2 normal heart sound present, No gallops present (Cardio), No murmurs present (Cardio), No rub (Cardio) and Peripheral pulses 2+ throughout RATE: regular rate RHYTHM: regular rhythm HEART SOUNDS: S1 normal heart sound present and S2 normal heart sound present PERIPHERAL PULSES: Peripheral pulses 2+ throughout GI: COMMON NORMALS: Normal to inspection, nondistended, normoactive bowel sounds present, Soft to palpation, non-tender, No hepatosplenomegaly present and no masses AUSCULTATION: Yes normoactive bowel sounds PALPATION: Yes Soft to palpation and Yes No hepatosplenomegaly present RECTAL EXAM: Yes deferred Extremity: COMMON NORMALS: no clubbing, cyanosis or edema and no pedal edema Neuro: COMMON NORMALS: patient oriented x3 Data : 01/14/22 03:48 01/14/22 03:48 A&P Assessment and plan (1) 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 transplanted heart: [place] heart Associated angina: with unstable angina Qualified Code(s): I25.110 - Atherosclerotic heart disease of [place] coronary artery with unstable angina pectoris (4) Dyslipidemia: On statin therapy Continue statin Check lipid panel Status: Chronic (5) Hypertension: On increased dose of lisinopril, beta-blockade and isosorbide at home Presently on nitroglycerin drip, continuing beta-blockade and holding lisinopril Monitor response Status: Chronic Qualifiers: Hypertension type: primary hypertension Qualified Code(s): I10 - Essential (primary) hypertension (6) Diabetes mellitus: Chronically on Metformin and glipizide, hemoglobin A1c earlier this month 9.2 Hold both oral medications Sliding scale insulin as needed Status: Chronic Qualifiers: Diabetes mellitus type: type 2 Diabetes mellitus computer terminal operator insulin use: without computer terminal operator use Diabetes mellitus complication status: with hyperglycemia Qualified Code(s): E11.65 - Type 2 diabetes mellitus with hyperglycemia (7) NSTEMI (non-ST elevated myocardial infarction): Status: Acute Plan #NSTEMI: Patient presented with chest pain worsening shortness of breath. Known prior history of coronary artery disease. Troponin trend has shown significant delta Recent 2D echo: Showed normal LV size and systolic function, LVEF 55%,hypokinesis of basal to apical inferior trimble. Normal diastolic function.Normal right ventricular size and systolic function. Mild mitral valve regurgitation. Follow limited 2D echo Continue telemetry monitoring Continue aspirin, high-dose statin beta-yancy, heparin drip has been discontinued and has been switched to Lovenox subcu therapeutic, nitro drip has been stopped, continue Continue home hydrocodone . As needed morphine if needed for severe chest pain. Recent coronary angiogram, which has shown 60% left main stenosis which has been confirmed through IVUS as well as multiple serial lesions of the RCA between 80 and 90% extending down to the bifurcation.LAD and circumflex have noncritical disease, initially he denied CABG , at one point in time PCI was considered, but cardiology is of the opinion . He is not a good candidate for PCI, should undergo CABG, patient has agreed for it. Upon their further discussion with the cardiothoracic surgery as well as with split leather department supervisor they have agreed To intervene RCA, as they have identified it as the main culprit lesion, left main disease is 60%. There is also unfortunate unavoidable situation with the ICU bed and we have no immediate nursing personnel with adequate postoperative experience in open heart surgery patients. Appreciate cardiology as well as cardiothoracic surgery input. #History of coronary artery disease: #CKD stage III: Currently serum creatinine is baseline. Monitor BMP Avoid nephrotoxic's Intake output charting #Normocytic Iron deficiency anemia: Serum iron: 21, percentage saturation:6.5, TIBC:319 Serum ferritin:34 FOBT: Currently the H&H has dropped to 7.7/26, patient denies any BRBPR, dark stool, hematuria. Plan is to start IV iron. Continue to monitor H&H as the patient is on therapeutic anticoagulation. #Diabetes: SSI, FSG , diabetic diet. #DVT prophylaxis: On Lovenox # Full code Attestations Medical Necessity Statement*: Patient is to be in hospital for management of NSTEMI. Coding Level of Care Code Acute Photographer Finish for Shauna Fwd Diagnoses Stenosis of left main coronary artery I25.10 Stenosis of right coronary artery I25.10 CAD (coronary artery disease) I25.110 Coronary Disease-Associated Artery/Lesion type: [place] artery [place] vs. transplanted heart: [place] heart Associated angina: with unstable angina Dyslipidemia E78.5 Hypertension I10 Hypertension type: primary hypertension Diabetes mellitus E11.65 Diabetes mellitus type: type 2 Diabetes mellitus computer terminal operator insulin use: without computer terminal operator use Diabetes mellitus complication status: with hyperglycemia NSTEMI (non-ST elevated myocardial infarction) I21.4
--- NOTE | 2022-01-14 14:30 | ECG_ITS ---
[facility] Test Date: 2022-01-14 Pat Name: Jordan Henriquez Department: Room: 108 Gender: Male Bad Cloth Checker: : 1960 Requested By: Hal Posey Order Number: [id number] Avi MD: Marija Rossi M.D. Measurements Intervals [place] Rate: 59 P: 31 [place]: 222 QRS: 35 QRSD: 97 T: -5 QT: 429 QTc: 427 Interpretive Statements SINUS BRADYCARDIA WITH FIRST DEGREE AV BLOCK PROBABLE INFERIOR MYOCARDIAL INFARCTION , PROBABLY OLD [35 ms Q WAVE IN II/aVF] ANTEROSEPTAL MYOCARDIAL INFARCTION , OF INDETERMINATE AGE [40+ ms Q WAVE IN V1-V4] Compared to ECG 01/12/2022 16:42:29 No significant changes Electronically Signed On 01-14-2022 14:39:43 CHAIN HOOKER by Marija Rossi M.D. [email or web address]
[2022-01-14] MEDS: nitroglycerin drip 50 MG/250 ML PREMIX IV (14:52)
--- NOTE | 2022-01-14 15:06 | PC.NURSE ---
nitro gtt increased from 10mcg to 20mcg per protocol. cp currently at a 6.
--- NOTE | 2022-01-14 15:08 | PC.NURSE ---
Dr Rojas called twice without answer, cath cab called without answer. Dr Posey then notified of pt c/o chest pain 07/08 and [id number]. Order recieved to start nitro gtt per chest pain protocol.
[2022-01-14] MEDS: morphine 4 mg/mL SDV 1 mL 1 MG IVP (15:56)
[2022-01-14 17:00] LABS: Partial Thromboplastin Time > 250.0 SECONDS (23.9-36.7)
[2022-01-14 18:15] LABS: Glucose Point of Care 113 mg/dL (70-110)
[2022-01-14 19:15] LABS: Partial Thromboplastin Time 47.1 SECONDS (23.9-36.7)
--- NOTE | 2022-01-14 19:44 | PC.NURSE ---
Received report from ROHINI Francois. Patient is s/p LHC with PCI. Patient currently has venous and arterial access to right groin with PTT pending presently. Instructed patient on sheath removal , site care and restrictions. Patient express unhappiness at having to lie flat however to verbalize complete understanding. No distress observed. Nitro drip continues as documented. Will continue to monitor.
[2022-01-14 20:34] LABS: Glucose Point of Care 103 mg/dL (70-110)
--- NOTE | 2022-01-14 20:40 | PM.HPPED ---
Providers/Chief Complaint Admitting Physician: Loli Lyle MD Primary Care Provider: Tejas Wu DO Chief Complaint: Possible heart attack History of Present Illness History of Present Illness Jordan Henriquez is a 61 year old male Medications/Allergies Home Medications Medication Instructions Recorded Confirmed Last Taken Type glipizide 10 mg tablet, extended 10 mg PO BEDTIME 02/12/20 01/12/22 01/11/22 History release 24 hr metformin 1,000 mg tablet 1,000 mg PO BEDTIME 02/12/20 01/12/22 01/11/22 History sildenafil 100 mg tablet 100 mg PO DAILY PRN #20 tab 02/16/20 01/12/22 Unknown Rx hydrocodone 5 mg-acetaminophen 325 1 tab PO Q4H PRN 3 Days #12 tab 12/12/20 01/12/22 Unknown Rx mg tablet aspirin 81 mg tablet,delayed 81 mg PO DAILY #60 tab 01/01/22 01/12/22 01/12/22 Rx release atorvastatin 80 mg tablet 80 mg PO DAILY #60 tab 01/01/22 01/12/22 01/12/22 Rx clopidogrel 75 mg tablet (Plavix) 75 mg PO DAILY #60 tab 01/01/22 01/12/22 01/12/22 Rx isosorbide mononitrate 30 mg 30 mg PO DAILY #60 tab 01/01/22 01/12/22 01/12/22 Rx tablet,extended release 24 hr lisinopril 10 mg tablet 10 mg PO DAILY #60 tab 01/01/22 01/12/22 01/12/22 Rx metoprolol tartrate 25 mg tablet 25 mg PO BID #60 tab 01/01/22 01/12/22 01/12/22 Rx potassium citrate 15 mEq (1,620 15 meq PO DAILY 01/12/22 01/12/22 01/12/22 History mg) tablet,extended release Allergies Allergy/AdvReac Type Severity Reaction Status Date / Time adhesive AdvReac Unknown Verified 01/07/22 08:23 Pediatric PFSH PFSH: Medical History CAD (coronary artery disease) Dental caries Diabetes mellitus Dyslipidemia Erectile dysfunction due to diseases classified elsewhere Hypertension Urolithiasis Surgical History H/O neck surgery H/O repair of rotator cuff History of ankle surgery History of lithotripsy History of surgery on arm Family History Other CAD (coronary artery disease) Social History Smoking and tobacco status: never smoked Alcohol intake: current Alcohol intake frequency: holidays/special occasions only Substance/Drug Use: never Adopted: No Household members: spouse Marital status: Current occupational status: disabled Current gender identity: Male Pediatric Data : 01/14/22 03:48 01/14/22 03:48 Coding Level of Care Code Acute Pharmacist Critical Care for Shauna Guadarrama
--- NOTE | 2022-01-14 21:40 | PC.NURSE ---
Instructed patient on sheath removal, site care and restrictions. Patient verbalized complete understanding. Initiated arterial sheath removal at 2014 per protocol. Hemostasis achieved immediately. Maintained pressure for 20min. Initiated venous sheath removal at 2034 and maintained pressure to this site for 10min. VS remained WNL. No s/s of bleeding or hematoma formation at this time. Reinforced teaching. Patient demonstrated understanding. Patient denies pain or other needs. No distress observed. Will continue to monitor.
[2022-01-15] VITALS (18 sets, daily range): BP systolic 112–162; BP diastolic 56–81; PULSE 66–108; RESP 15–26; TEMP 36.4–37; O2SAT 89–96
[2022-01-15 03:08] LABS: Basophils # 0.1 10^3/uL (0.0-0.1); Basophils % 0.8 %; Eosinophils # 0.5 10^3/uL (0.0-0.8); Hematocrit 25.9 % (42.0-52.0); Hemoglobin 7.4 g/dL (11.7-16.6); Lymphocytes # 1.6 10^3/uL (0.8-4.8); Lymphocytes % 15.9 %; Mean Corpuscular HGB Conc 28.6 g/dL (30.0-36.0); Mean Corpuscular Hemoglobin 22.3 pg (28.0-34.0); Mean Platelet Volume 9.8 fL (7.4-10.4); Monocytes # 0.9 10^3/uL (0.2-0.9); Monocytes % 9.3 %; Neutrophils # 6.77 10^3/uL (1.8-7.7); Neutrophils % 68.8 %; Nucleated Red Blood Cells % 0 %; Platelet Count 455 10^3/cmm (130-400); Red Blood Count 3.32 10^6/uL (4.1-5.3); Red Cell Distribution Width 15.7 % (12.1-15.1); White Blood Count 9.8 10^3/uL (4.0-10.0)
[2022-01-15 03:34] LABS: Anion Gap 13.4 (5-19); Blood Urea Nitrogen 16 mg/dL (8-23); Calcium 8.7 mg/dL (8.5-10.5); Carbon Dioxide 22 mmol/L (22-29); Chloride 103 mmol/L (98-107); Glomerular Filtration Rate 61.1 mL/min (90-130); Glucose 147 mg/dL (65-115); Osmolality Calculated 282 mOsm/kg (285-295); Potassium 4.4 mmol/L (3.5-5.1); Sodium 134 mmol/L (136-145)
--- NOTE | 2022-01-15 04:51 | PC.NURSE ---
Dressing to right groin remains c,d,i at this time. No s/s of bleeding or hematoma formation observed. Patient c/o tenderness to site with palpation. Denies chest pain. Instructed patient on continued site care and restrictions also on nitro drip to discontinue. Patient verbalized complete understanding stating I am ready to get out of here.
--- NOTE | 2022-01-15 05:33 | PC.NURSE ---
Dressing to right groin remains c,d,i with no s/s of bleeding or hematoma formation observed. Patient denies pain to site or chest. Nitro drip stopped at this time. No distress observed. Will continue to monitor.
--- NOTE | 2022-01-15 05:34 | PC.NURSE ---
IV access removed by patient. Found IV catheter intact within bed covers. Patient unaware of removal. No s/s of bleeding, infection or infiltration observed. Patient refused to have new IV access obtained due to pending discharge today.
[2022-01-15 06:24] LABS: Glucose Point of Care 157 mg/dL (70-110)
--- NOTE | 2022-01-15 08:32 | PM.PN ---
Subjective Subjective: Patient underwent successful revascularization of the proximal to distal RCA with arthrectomy and DESx 3. He is doing well. Hgb is low but has stayed stable Vitals/I&O/Wt Last Vital Signs Temp 97.9 F 01/14/22 23:38 Pulse 72 01/15/22 04:48 Resp 18 01/15/22 04:14 BP 144/66 01/15/22 04:14 Pulse Ox 94 01/15/22 04:14 01/14/22 01/15/22 01/15/22 22:59 06:59 14:59 Intake Total 57.6 / 57.95 66.05 / 124.00 Output Total 1600 / 1600 750 / 2350 Balance -1542.4 / -1542.05 -683.95 / -2226.00 Weight last 48 hrs Weight 220 lb 14.4 oz Weight 221 lb 3.2 oz Physical Exam Narrative: GENERAL: Patient is alert, respiratory distress sitting up using accessory muscles. NECK: No jugular vein distension. [] HEENT: No cyanosis. No icterus. No pallor. [] HEART: Tachycardic, S1 plus S2. LUNGS: Crackles. ABDOMEN: Soft, nontender and nondistended. Positive bowel sounds. No guarding, rebound or tenderness. [] CENTRAL NERVOUS SYSTEM: Grossly nonfocal. [] EXTREMITIES: Lower extremities with 1+ edema bilaterally. Pulses palpable in the lower extremities, both dorsalis pedis and posterior tibial. [] Data : 01/15/22 02:50 01/15/22 02:50 A&P Assessment and plan (1) CAD (coronary artery disease): Status: Chronic Qualifiers: Associated angina: with unstable angina Coronary Disease-Associated Artery/Lesion type: [place] artery [place] vs. transplanted heart: [place] heart Qualified Code(s): I25.110 - Atherosclerotic heart disease of [place] coronary artery with unstable angina pectoris (2) Chest pain: Status: Acute Qualifiers: Chest pain type: chest pain due to myocardial ischemia Ischemic chest pain type: unstable angina pectoris Qualified Code(s): I20.0 - Unstable angina (3) Diabetes mellitus: Status: Chronic Qualifiers: Diabetes mellitus complication status: with hyperglycemia Diabetes mellitus [facility] insulin use: without [facility] use Diabetes mellitus type: type 2 Qualified Code(s): E11.65 - Type 2 diabetes mellitus with hyperglycemia (4) Stenosis of left main coronary artery: Status: Chronic (5) Hypertension: Status: Chronic Qualifiers: Hypertension type: primary hypertension Qualified Code(s): I10 - Essential (primary) hypertension (6) Microcytic anemia: Status: Acute Plan Patient with known left main stenosis and RCA stenosis who had recent non-ST elevation VT and opted for medical therapy only presented again with typical chest pain symptoms and found to have NSTEMI again with significant elevation of troponins. We consulted again Dr Shell for CABG as patient was considering it this time. However ICU post op care was not available. Patient was given option to be transferred to another facility however he refused it. After heart team discussion and per patient's wishes, it was decided to perform PCI of RCA with arterctomy. He underwent successful revascularization of the RCA with orbital arthrectomy and OFELIA x3. Patient has iron deficiency anemia. Hemoglobin has been staying stable and 7-8 range. Given last hemoglobin is 7.4, we will recommend transfusing a unit of blood. He will need follow-up CBC in 2 to 3 days. Continue aspirin and Plavix Thank you for involving us with care of this patient. Patient is stable to be discharged from cardiology standpoint. Please call with questions Attestations Medical Necessity Statement*: Care expected to cross 2 midnights. Coding Level of Care Code Acute Outreach And Education Social Worker for Shauna Guadarrama Diagnoses CAD (coronary artery disease) I25.110 Associated angina: with unstable angina Coronary Disease-Associated Artery/Lesion type: [place] artery [place] vs. transplanted heart: [place] heart Chest pain I20.0 Chest pain type: chest pain due to myocardial ischemia Ischemic chest pain type: unstable angina pectoris Diabetes mellitus E11.65 Diabetes mellitus complication status: with hyperglycemia Diabetes mellitus looping machine operator insulin use: without looping machine operator use Diabetes mellitus type: type 2 Stenosis of left main coronary artery I25.10 Hypertension I10 Hypertension type: primary hypertension Microcytic anemia D50.9
[2022-01-15] MEDS: metoprolol tartrate 25 mg Tablet PO (09:00)
[2022-01-15] MEDS: aspirin 81 mg EC Tablet PO (09:00)
[2022-01-15] MEDS: pantoprazole DR 40 mg Tablet PO (09:01)
[2022-01-15] MEDS: insulin lispro 100 unit/1 mL SUBCUT ×2 (09:03→12:57)
--- NOTE | 2022-01-15 09:25 | PC.SOCIAL ---
IMM UPDATED IMM dated and initialed and copy given to patient
[2022-01-15] MEDS: ferric gluconate 125 MG in sodium chloride 0.9% (100 ml) 100 ML 110 MG IV (09:48)
[2022-01-15 11:48] LABS: Glucose Point of Care 207 mg/dL (70-110)
[2022-01-15] MEDS: FUROsemide 10 mg/mL SDV 2mL 20 MG IVP (12:58)
--- NOTE | 2022-01-15 14:57 | PM.DCS ---
Discharge Providers Date of Admission: 01/12/22 15:56 Date of Discharge: January 15, 2022 Attending Provider at Admission: Loli Lyle MD Attending Provider at Discharge: Hal Posey MD Primary Care Provider: Tejas Wu DO Diagnoses at Discharge Discharge Diagnosis (1) CAD (coronary artery disease): Status: Chronic Qualifiers: Associated angina: with unstable angina Coronary Disease-Associated Artery/Lesion type: [place] artery [place] vs. transplanted heart: [place] heart Qualified Code(s): I25.110 - Atherosclerotic heart disease of [place] coronary artery with unstable angina pectoris (2) Chest pain: Status: Acute Qualifiers: Chest pain type: chest pain due to myocardial ischemia Ischemic chest pain type: unstable angina pectoris Qualified Code(s): I20.0 - Unstable angina (3) Diabetes mellitus: Status: Chronic Qualifiers: Diabetes mellitus complication status: with hyperglycemia Diabetes mellitus long wall mining machine tender insulin use: without long wall mining machine tender use Diabetes mellitus type: type 2 Qualified Code(s): E11.65 - Type 2 diabetes mellitus with hyperglycemia (4) 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 He was admitted for the management of NSTEMI, was kept on ACS protocol, underwent PCI to RCA with three stents placement, repeat 2D echo done during this hospital stay: Normal left ventricular size, systolic function and upper , normal wall thickness.There is hypokinesis of entire inferior?and mid inferoseptal and apical septal trimble. Recent coronary angiogram, which has shown 60% left main stenosis which has been confirmed through IVUS as well as multiple serial lesions of the RCA between 80 and 90% extending down to the bifurcation.LAD and circumflex have noncritical disease, initially he denied CABG , at one point in time PCI was considered, but cardiology is of the opinion . He is not a good candidate for PCI, should undergo CABG, patient has agreed for it. Upon their further discussion with the cardiothoracic surgery as well as with wool hat sanding machine operator they have agreed To intervene RCA, as they have identified it as the main culprit lesion, left main disease is 60%.There is also unfortunate unavoidable situation with the ICU bed and? we have no immediate nursing personnel with adequate postoperative experience in open heart surgery patients. Patient tolerated the procedure well. He Was discharged on aspirin Plavix beta-yancy , statin, Imdur, sublingual nitro as needed. Patient was also managed for microcytic iron deficiency anemia: Serum iron: 21, percentage saturation:6.5, TIBC:319 , Serum ferritin:34. Patient denied any bright red blood per rectum, hematuria, FOBT was pending, patient was given IV iron during hospital stay and was discharged on p.o. iron. Patient will follow with repeat CBC in 1 week, to assess the hemoglobin status. Responded well to above medical management and he is being discharged in stable condition to home. He Will follow cardiology as an outpatient.He will continue to follow his primary care physician as an outpatient. Physical Exam Const: COMMON NORMALS: patient oriented x3 HENMT: COMMON NORMALS: normocephalic, atraumatic, hearing grossly normal bilaterally and external ears normal HEAD & SCALP: normocephalic and atraumatic EXTERNAL EAR: Yes external ears normal Eye: COMMON NORMALS: no scleral icterus GENERAL EYE: appearance normal, both eyes and all related structures Chest: COMMONS NORMALS: normal inspection of the chest and normal palpation of entire chest wall CHEST: Yes Symmetrical chest wall rise Resp: COMMON NORMALS: normal respiratory effort, No retractions, No use of accessory muscles and clear to auscultation bilaterally EFFORT & INSPECTION: Yes symmetric chest movement AUSCULTATION: clear to auscultation bilaterally Cardio: COMMON NORMALS: regular rate, regular rhythm, S1 normal heart sound present, S2 normal heart sound present, No gallops present (Cardio), No murmurs present (Cardio), No rub (Cardio) and Peripheral pulses 2+ throughout RATE: regular rate RHYTHM: regular rhythm HEART SOUNDS: S1 normal heart sound present and S2 normal heart sound present PERIPHERAL PULSES: Peripheral pulses 2+ throughout GI: COMMON NORMALS: Normal to inspection, nondistended, normoactive bowel sounds present, Soft to palpation, non-tender, No hepatosplenomegaly present and no masses AUSCULTATION: Yes normoactive bowel sounds PALPATION: Yes Soft to palpation and Yes No hepatosplenomegaly present RECTAL EXAM: Yes deferred Extremity: COMMON NORMALS: no clubbing, cyanosis or edema and no pedal edema Neuro: COMMON NORMALS: patient oriented x3 Discharge Data Studies Completed and Pending Completed Studies During Hospitalization Category Date Time Status XR chest 1V portable [id number] Stat Exams 01/12/22 09:37 Completed CV. echo limited 15700 Routine Ultrasound 01/13/22 08:39 Completed Pending at discharge Category Date Time Status NUTRITION EDUCATOR request for service Routine Exams 01/14/22 10:36 Taken BMP [Basic Metabolic Panel] AM LABS Lab 01/16/22 04:00 Ordered CBC Auto Diff [Complete Blood Count w/Auto] AM LABS Lab 01/16/22 04:00 Ordered Fecal Occult Blood [Immunochemical Fecal OCB] Routine Lab 01/14/22 07:39 Uncollected Immunochemical Fecal OCB Routine Lab 01/12/22 15:57 Uncollected Leukocyte Reduced RBC Routine Lab 01/15/22 09:38 Results Type and Screen Timed Lab 01/15/22 09:38 Results Radiology Impressions Chest X-Ray 01/12/22 09:37 IMPRESSION: 1. No acute findings. 2. Metallic surgical hardware cervical spine 3. Metallic surgical clips right lateral chest Laboratory Results WBC 9.8 10^3/uL (4.0-10.0) 01/15/22 02:50 RBC 3.32 10^6/uL (4.1-5.3) L 01/15/22 02:50 Hgb 7.4 g/dL (11.7-16.6) L 01/15/22 02:50 Hct 25.9 % (42.0-52.0) L 01/15/22 02:50 MCV 78.0 fl (80-94) L 01/15/22 02:50 MCH 22.3 pg (28.0-34.0) L 01/15/22 02:50 MCHC 28.6 g/dL (30.0-36.0) L 01/15/22 02:50 RDW 15.7 % (12.1-15.1) H 01/15/22 02:50 Plt Count 455 10^3/cmm (130-400) H 01/15/22 02:50 MPV 9.8 fL (7.4-10.4) 01/15/22 02:50 Neut % (Auto) 68.8 % 01/15/22 02:50 Lymph % (Auto) 15.9 % 01/15/22 02:50 Burnett % (Auto) 9.3 % 01/15/22 02:50 Eos % (Auto) 5.0 % 01/15/22 02:50 Baso % (Auto) 0.8 % 01/15/22 02:50 Neut # (Auto) 6.77 10^3/uL (1.8-7.7) 01/15/22 02:50 Lymph # (Auto) 1.6 10^3/uL (0.8-4.8) 01/15/22 02:50 Burnett # (Auto) 0.9 10^3/uL (0.2-0.9) 01/15/22 02:50 Eos # (Auto) 0.5 10^3/uL (0.0-0.8) 01/15/22 02:50 Baso # (Auto) 0.1 10^3/uL (0.0-0.1) 01/15/22 02:50 Nucleated RBC % (auto) 0 % 01/15/22 02:50 Nucleated RBCs # 0.0 /100WBC 01/15/22 02:50 PT 14.40 SECONDS (12.1-14.9) 01/13/22 03:46 INR 1.08 (0.8-1.2) 01/13/22 03:46 APTT 47.1 SECONDS (23.9-36.7) H D 01/14/22 18:48 Sodium 134 mmol/L (136-145) L 01/15/22 02:50 Potassium 4.4 mmol/L (3.5-5.1) 01/15/22 02:50 Chloride 103 mmol/L (98-107) 01/15/22 02:50 Carbon Dioxide 22 mmol/L (22-29) 01/15/22 02:50 Anion Gap 13.4 (5-19) 01/15/22 02:50 BUN 16 mg/dL (8-23) 01/15/22 02:50 Creatinine 1.2 mg/dL (0.7-1.2) 01/15/22 02:50 GFR Calculation 61.1 mL/min (90-130) L 01/15/22 02:50 Glucose 147 mg/dL (65-115) H 01/15/22 02:50 POC Glucose 207 mg/dL (70-110) H 01/15/22 11:34 Calculated Osmolality 282 mOsm/kg (285-295) L 01/15/22 02:50 Uric Acid 6.9 mg/dL (3.4-7.0) 01/13/22 03:46 Calcium 8.7 mg/dL (8.5-10.5) 01/15/22 02:50 Phosphorus 4.7 mg/dL (2.5-4.5) H 01/13/22 03:46 Magnesium 2.0 mg/dL (1.7-2.3) 01/13/22 03:46 Iron 21 ug/dL (59-158) L 01/13/22 03:46 TIBC 319 mcg/dl 01/13/22 03:46 % Saturation 6.5 % (20-50) L 01/13/22 03:46 Unsat Iron Binding 298 ug/dL (112-347) 01/13/22 03:46 Ferritin 34 ng/mL (30-400) 01/14/22 03:48 Total Bilirubin 0.2 mg/dL (0.15-1.2) 01/12/22 09:25 AST 14 U/L (0-40) 01/12/22 09:25 ALT 15 U/L (0-41) 01/12/22 09:25 Alkaline Phosphatase 129 IU/L (40-130) 01/12/22 09:25 Troponin T Baseline 49 ng/L (0-15) H 01/12/22 09:25 Troponin T 120 Minute 166.9 ng/L (0-15) H 01/12/22 12:08 Delta Troponin T 117.9 ABS# (0-10) H* 01/12/22 12:08 Troponin T Hi Sens 6Hr 286.1 ng/L (0-15) H 01/12/22 16:47 Troponin T Hi Sens 6Hr Delta 237.1 ng/L (0-12) H* 01/12/22 16:47 NT-Pro-B Natriuret Pep 1503 pg/mL (0-125) H 01/12/22 09:25 Total Protein 6.6 g/dL (6.6-8.7) 01/12/22 09:25 Albumin 4.4 g/dL (3.5-5.2) 01/12/22 09:25 Globulin 2.2 g/dL (1.3-4.6) 01/12/22 09:25 Triglycerides 157 mg/dL (0-150) H 01/13/22 03:46 Cholesterol 123 mg/dL (0-200) 01/13/22 03:46 LDL Cholesterol, Calc 68 mg/dL (50-129) 01/13/22 03:46 HDL Cholesterol 24 mg/dL (60-100) L 01/13/22 03:46 LDL/HDL Ratio 2.83 RATIO (0.00-3.22) 01/13/22 03:46 Cholesterol/HDL Ratio 5.13 mg/dL (1.0-5.00) H 01/13/22 03:46 Urine Color Yellow (Yellow) 01/12/22 13:51 Urine Appearance Clear (CLEAR) 01/12/22 13:51 Urine pH 5 (5-7) 01/12/22 13:51 Ur Specific [place] 1.020 (1.005-1.030) 01/12/22 13:51 Urine Protein Neg (Negative) 01/12/22 13:51 Urine Glucose (UA) 4+ (Normal) H 01/12/22 13:51 Urine Ketones Negative (Negative) 01/12/22 13:51 Urine Blood Neg (Negative) 01/12/22 13:51 Urine Nitrate Negative (Negative) 01/12/22 13:51 Urine Bilirubin Neg (Negative) 01/12/22 13:51 Urine Urobilinogen Norm mg/dL (Negative) 01/12/22 13:51 Ur Leukocyte Esterase Negative (Negative) 01/12/22 13:51 Blood Type A Positive 01/15/22 09:38 Rho(D) Type Positive 01/15/22 09:38 Antibody Screen Negative 01/15/22 09:38 Crossmatch See Detail 01/15/22 09:38 Vitals Last Vital Signs Temp 98.3 F 01/15/22 11:35 Pulse 66 01/15/22 11:35 Resp 20 H 01/15/22 11:35 BP 116/70 01/15/22 11:35 Pulse Ox 95 01/15/22 11:20 Discharge Plan Discharge Patient Disposition: Home Condition: Stable Prescriptions: New nitroglycerin 0.4 mg tablet, sublingual 0.4 mg sublingual Q5M PRN (Reason: chest pain) Qty: 30 1RF Rx Instructions: do not exceed 3 doses per episode ferrous sulfate 325 mg (65 mg iron) tablet,delayed release (DR/EC) 325 mg PO BID Qty: 60 3RF ascorbic acid (vitamin C) 250 mg tablet 250 mg PO DAILY Qty: 30 3RF bisacodyl 5 mg Tablet,Delayed Release (Dr/Ec) 10 mg PO DAILY PRN (Reason: Constipation (see protocol)) 30 Days Qty: 30 0RF Continued sildenafil 100 mg tablet 100 mg PO DAILY PRN (Reason: sexual activity) Qty: 20 12RF Rx Instructions: 1 hour before intercourse on empty stomach. NO NITROGLYCERIN! hydrocodone-acetaminophen 5-325 mg tablet 1 tab PO Q4H PRN (Reason: pain) 3 Days Qty: 12 0RF Rx Instructions: take 1 PO every 4 hours PRN pain glipizide 10 mg Tablet Extended Release 24hr 10 mg PO BEDTIME 0RF metformin 1,000 mg Tablet 1,000 mg PO BEDTIME 0RF Hold Instructions: Resume on 01/05/22. aspirin 81 mg Tablet,Delayed Release (Dr/Ec) 81 mg PO DAILY Qty: 60 3RF clopidogrel [Plavix] 75 mg tablet 75 mg PO DAILY Qty: 60 3RF atorvastatin 80 mg tablet 80 mg PO DAILY Qty: 60 3RF isosorbide mononitrate 30 mg tablet extended release 24 hr 30 mg PO DAILY Qty: 60 3RF lisinopril 10 mg tablet 10 mg PO DAILY Qty: 60 3RF metoprolol tartrate 25 mg tablet 25 mg PO BID Qty: 60 3RF potassium citrate 15 mEq tablet extended release 15 meq PO DAILY 0RF Discharge Orders: Discharge Order (Routine); Ordered 01/15/22 Ordered By: Hal Posey Other Ambulatory Orders: Complete Blood Count w/Auto (Routine) Timeframe: 1 Week Location: Determined by Patient Ordered By: Hal Posey Referrals: David Rojas M.D [Physician] - 02/12/22 3:30 pm Lali Chaudhary FNP [Nurse Practitioner] - 01/22/22 2:30 pm Tejas Wu DO [Primary Care Provider] - 02/02/22 1:00 pm Discharge Diet: Cardiac and Diabetic Discharge Activity: Increase activity as tolerated Patient Instructions: Nitroglycerin (By mouth), Ascorbic Acid (By mouth) (Ascocid, C-500, C-Time w/Krystal Hips, Vitamin C250), Bisacodyl (By mouth) (Alophen, Biscolax, Correctol, Dulcolax), Ascorbic Acid/Cyanocobalamin/Ferrous Fumarate (By mouth), Opioid Safety Activity Restrictions/Additional Instructions: In ONE week, please stop by [facility] during the daytime to have CBC Bloodwork done. You don't need an appointment for this. Please check in with Admissions prior to going to the lab. Thank you Discharge Attestations Time Spent in Discharge Care*: greater than 30 min Specific Discharge Activities: educating patient, educating and/or supporting family/caregiver, discussing with pcp/other providers, discussing with transplant case manager/social workers/dc planners, documenting/other paperwork and evaluating patient/reviewing data Quality Metrics Clinical Quality Measures [ No reported AMI, CVA or VTE this stay] Coding Level of Care Code Acute Chg FW DC note Exam Comprehensive Diagnoses CAD (coronary artery disease) I25.110 Associated angina: with unstable angina Coronary Disease-Associated Artery/Lesion type: [place] artery [place] vs. transplanted heart: [place] heart Chest pain I20.0 Chest pain type: chest pain due to myocardial ischemia Ischemic chest pain type: unstable angina pectoris Diabetes mellitus E11.65 Diabetes mellitus complication status: with hyperglycemia Diabetes mellitus long wall mining machine tender insulin use: without shelter use Diabetes mellitus type: type 2 Stenosis of left main coronary artery I25.10 Hypertension I10 Hypertension type: primary hypertension
[2022-01-15] MEDS: clopidogrel 75 mg Tablet PO (16:09)
--- NOTE | 2022-01-15 18:19 | PC.NURSE ---
Discharge Note Patient discharged to home via private vehicle accompanied by spouse. All lines removed. Discharge instructions reviewed with patient and spouse. Patient and patient's spouse verbalized understanding of all teaching. Mobile pharmacy medications and/or prescriptions provided. Belongings/home medications returned.
== END 2022-01-15 17:08 | disposition home or self-care (01) | DRG 247 ==
LOC: ER 10:38 → CSU 16:48
PROVIDERS: Internal Medicine; Admitting Provider Hospitalist; Emergency Provider Family Medicine; PCP Internal Medicine; Visit Provider Internal Medicine
PROC: 027136Z Dilation of Coronary Artery, Two Arteries with Three Drug-eluting Intraluminal Devices, Percutaneous Approach (ICD-10-PCS; principal; 2022-01-14 11:00)
DX: I22.2 Subsequent non-ST elevation (NSTEMI) myocardial infarction (principal); I21.4 Non-ST elevation (NSTEMI) myocardial infarction; I25.110 Atherosclerotic heart disease of native coronary artery with unstable angina pectoris; E11.65 Type 2 diabetes mellitus with hyperglycemia; F17.220 Nicotine dependence, chewing tobacco, uncomplicated; D50.9 Iron deficiency anemia, unspecified; D63.1 Anemia in chronic kidney disease; N28.9 Disorder of kidney and ureter, unspecified; E11.22 Type 2 diabetes mellitus with diabetic chronic kidney disease; I12.9 Hypertensive chronic kidney disease with stage 1 through stage 4 chronic kidney disease, or unspecified chronic kidney disease; N18.2 Chronic kidney disease, stage 2 (mild); E78.5 Hyperlipidemia, unspecified; Z79.02 Long term (current) use of antithrombotics/antiplatelets; Z79.84 Long term (current) use of oral hypoglycemic drugs; Z79.82 Long term (current) use of aspirin; Z95.5 Presence of coronary angioplasty implant and graft
CPT/HCPCS: 36415; 36416; 36430; 71045; 80048; 80053; 80061; 81003; 82728; 82962; 83540; 83550; 83735; 83880; 84100; 84484; 84550; 85025; 85347; 85610; 85730; 86850; 86900; 86920; 92978; 93005; 93308; 96372; 96374; 96375; 99291; C1724; C1725; C1753; C1769; C1874; C1887; C1894; C9602; J1644; J1650; J1815; J1940; J2250; J2270; J2405; J2916; J3010; J3490; J7040; P9016; Q9967

== ENCOUNTER 2022-03-30 21:16 | Emergency (ER) | payer MEDICARE, SELFPAY ==
[2022-03-30] VITALS (9 sets, daily range): BP systolic 121–172; BP diastolic 58–91; PULSE 97–119; RESP 18–30; TEMP 36.6; O2SAT 87–98; BMI 33.0
--- NOTE | 2022-03-30 21:45 | CTR_ITS ---
PROCEDURE INFORMATION: Exam: CT Abdomen And Pelvis With Contrast Exam date and time: 03/30/2022 11:48 PM Age: 61 years old Clinical indication: Abdominal pain; Acute; Patient HX: N/v abd pain and blood in stools. HX of lithotripsy for kidney stones. History of kidney stones TECHNIQUE: Imaging protocol: Computed tomography of the abdomen and pelvis with contrast. Radiation optimization: All CT scans at this facility use at least one of these dose optimization techniques: automated exposure control; mA and/or kV adjustment per patient size (includes targeted exams where dose is matched to clinical indication); or iterative reconstruction. Contrast material: VISI; Contrast volume: 95 ml; Contrast route: INTRAVENOUS (IV); COMPARISON: CR XR KUB [id number] 12/12/2020 8:11 AM RADIATION DOSE METRICS: Total DLP (mGy-cm): 2035.63 FINDINGS: Lungs: Patchy ground-glass attenuation opacities of the posterior lower lobes with volume loss changes. Pleural spaces: Bilateral pleural effusions greater on right than left. Liver: Normal. No mass. Gallbladder and bile ducts: Normal. No calcified stones. No ductal dilation. Pancreas: Normal. No ductal dilation. Spleen: Normal. No splenomegaly. Adrenal glands: Normal. No mass. Kidneys and ureters: Horseshoe kidney. Negative for hydronephrosis. Simple cyst in the left renal moiety lower pole measures 3.3 cm x 3.7 cm. No dedicated imaging follow-up for this finding. Possibly small nonobstructing left renal lower pole stones versus early contrast excretion changes within the calyces. Stomach and bowel: Diffuse small bowel wall thickening changes without evidence of obstruction. Appendix: Normal appendix. Intraperitoneal space: Small to moderate volume scattered abdominopelvic free fluid. No free air. Diffuse edema throughout abdominal mesentery. Abdominal free fluid without peripheral enhancement or loculation. Vasculature: Diffuse atherosclerosis. Negative for abdominal aortic aneurysm. No acute vascular occlusion identified. Lymph nodes: Unremarkable. No enlarged lymph nodes. Urinary bladder: Unremarkable as visualized. Reproductive: Unremarkable as visualized. Bones/joints: Unremarkable. No acute fracture. Soft tissues: Unremarkable. CT/CT abdomen pelvis w con* [id number] IMPRESSION: 1. Nonspecific enteritis changes are suspected. 2. Generalized 3rd spacing of fluid. COMMENTS: Consistent with the [employer]'s Incidental Findings Committee white paper (J Am Sailaja Radiol 2018): Any incidental renal lesion less than 1 cm or classified as too small to characterize, or any incidental cystic renal lesion characterized as simple-appearing, is likely benign. No follow-up imaging is recommended for these lesions per consensus recommendations based on imaging criteria.
--- NOTE | 2022-03-30 21:57 | ED_ITS ---
HPI - GI Bleed General: Chief complaint: GI Bleed Stated complaint: Bleeding internally Time Seen by Provider: 03/30/22 21:31 Source: patient Mode of arrival: ambulatory Limitations: no limitations History of Present Illness: 61-year-old male who states he has been having some blood in his stools over the last week he had to have a transfusion last week and set up for an EGD and colonoscopy at [place] later this week but he states that tonight he has been having severe diffuse abdominal pain along with blood in his stool. He states he been having black tarry stools states the pains currently is a 9 out of 10 denies any worsening improving factors no vomiting. Associated symptoms: Reports abdominal pain; Denies chills, easy bruising, fever(s), headache(s) or rash Review of Systems Const: Denies: fever(s), chills, body aches or change in appetite Eyes: Denies: blurry vision or eye discomfort ENMT: Denies: throat pain or dental pain Card: Denies: chest pain Resp: Denies: dyspnea GI: Reports: abdominal pain, hematochezia and melena : Denies: dysuria Musc: Denies: neck pain or back pain Skin/Breast: Denies: rash Neuro: Denies: headache(s) Psych: Denies: depression Chris/Lymph: Denies: easy bruising All/Imm: Denies: urticaria PFSH ED PFSH: Medical History CAD (coronary artery disease) Dental caries Diabetes mellitus Dyslipidemia Erectile dysfunction due to diseases classified elsewhere Hypertension Urolithiasis Surgical History H/O neck surgery H/O repair of rotator cuff History of ankle surgery History of lithotripsy History of surgery on arm Family History Other CAD (coronary artery disease) Social History Smoking and tobacco status: never smoked Alcohol intake: current Alcohol intake frequency: holidays/special occasions only Adopted: No Household members: spouse Marital status: Current occupational status: disabled Current gender identity: Male Physical Exam Const: COMMON NORMALS: patient oriented x3 GENERAL APPEARANCE: in distress and ill appearing HENMT: COMMON NORMALS: normocephalic and atraumatic HEAD & SCALP: normocephalic and atraumatic Eye: COMMON NORMALS: Equal, round and reactive pupils present and EOMs intact bilaterally PUPIL: Yes Equal, round and reactive pupils present Neck/C-Spine: COMMON NORMALS: full ROM and supple Chest: COMMONS NORMALS: normal inspection of the chest and normal palpation of entire chest wall Resp: COMMON NORMALS: normal respiratory effort, No retractions, No use of accessory muscles and clear to auscultation bilaterally AUSCULTATION: clear to auscultation bilaterally Cardio: COMMON NORMALS: regular rhythm and No murmurs present (Cardio) RATE: tachycardic RHYTHM: regular rhythm GI: COMMON NORMALS: Normal to inspection, nondistended, normoactive bowel sounds present and no masses OTHER: diffuse tenderness Extremity: COMMON NORMALS: normal to inspection and full ROM Neuro: COMMON NORMALS: patient oriented x3, moves all extremities and no focal motor deficits Psych: COMMON NORMALS: mental status grossly normal, Normal thought process present and cooperative THOUGHT PROCESS: Normal thought process present Skin: COMMON NORMALS: no rashes or lesions noted and no wounds GENERAL SKIN EXAM: no rashes or lesions noted Course Vital Signs: Vital signs: Vital Signs Temperature 97.8 F 03/30/22 21:21 Pulse Rate 97 03/31/22 00:30 Respiratory Rate 18 03/31/22 00:30 Blood Pressure 118/64 03/31/22 00:30 Pulse Oximetry 96 03/31/22 00:30 MDM - GI Bleed Medical Decision Making Patient presents here with abdominal pain he did complain of dark stools at home as well his blood count here is all normal hemoglobin is normal CT scan is normal rectal exam here shows brown stool that is Hemoccult negative on my exam his pain is improved he has an EGD and colonoscopy scheduled at [place] on Wednesday he is to follow-up and he is return if worsening he understands agrees to plan. Lab Data : 03/30/22 22:10 03/30/22 22:10 Radiology Impressions Abdomen/Pelvis CT 03/30/22 21:45 IMPRESSION: 1. Nonspecific enteritis changes are suspected. 2. Generalized 3rd spacing of fluid. COMMENTS: Consistent with the [employer]'s Incidental Findings Committee white paper (J Am Sailaja Radiol 2018): Any incidental renal lesion less than 1 cm or classified as too small to characterize, or any incidental cystic renal lesion characterized as simple-appearing, is likely benign. No follow-up imaging is recommended for these lesions per consensus recommendations based on imaging criteria. Laboratory Results WBC 7.2 10^3/uL (4.0-10.0) 03/30/22 22:10 RBC 4.31 10^6/uL (4.1-5.3) 03/30/22 22:10 Hgb 11.0 g/dL (11.7-16.6) L 03/30/22 22:10 Hct 37.1 % (42.0-52.0) L 03/30/22 22:10 MCV 86.1 fl (80-94) 03/30/22 22:10 MCH 25.5 pg (28.0-34.0) L 03/30/22 22:10 MCHC 29.6 g/dL (30.0-36.0) L 03/30/22 22:10 RDW 17.6 % (12.1-15.1) H 03/30/22 22:10 Plt Count 457 10^3/cmm (130-400) H 03/30/22 22:10 MPV 10.3 fL (7.4-10.4) 03/30/22 22:10 Neut % (Auto) 76.2 % 03/30/22 22:10 Lymph % (Auto) 15.5 % 03/30/22 22:10 [place] % (Auto) 6.0 % 03/30/22 22:10 Eos % (Auto) 1.4 % 03/30/22 22:10 Baso % (Auto) 0.6 % 03/30/22 22:10 Neut # (Auto) 5.46 10^3/uL (1.8-7.7) 03/30/22 22:10 Lymph # (Auto) 1.1 10^3/uL (0.8-4.8) 03/30/22 22:10 [place] # (Auto) 0.4 10^3/uL (0.2-0.9) 03/30/22 22:10 Eos # (Auto) 0.1 10^3/uL (0.0-0.8) 03/30/22 22:10 Baso # (Auto) 0.0 10^3/uL (0.0-0.1) 03/30/22 22:10 Nucleated RBC % (auto) 0 % 03/30/22 22:10 Nucleated RBCs # 0.0 /100WBC 03/30/22 22:10 Sodium 135 mmol/L (136-145) L 03/30/22 22:10 Potassium 4.1 mmol/L (3.5-5.1) 03/30/22 22:10 Chloride 101 mmol/L (98-107) 03/30/22 22:10 Carbon Dioxide 20 mmol/L (22-29) L 03/30/22 22:10 Anion Gap 18.1 (5-19) 03/30/22 22:10 BUN 22 mg/dL (8-23) 03/30/22 22:10 Creatinine 1.3 mg/dL (0.7-1.2) H 03/30/22 22:10 GFR Calculation 55.8 mL/min (90-130) L 03/30/22 22:10 Glucose 214 mg/dL (65-115) H 03/30/22 22:10 Calculated Osmolality 290 mOsm/kg (285-295) 03/30/22 22:10 Lactate 2.4 mmol/L (0.5-2.2) H 03/30/22 22:10 Calcium 8.0 mg/dL (8.5-10.5) L 03/30/22 22:10 Total Bilirubin 0.4 mg/dL (0.15-1.2) 03/30/22 22:10 AST 16 U/L (0-40) 03/30/22 22:10 ALT 17 U/L (0-41) 03/30/22 22:10 Alkaline Phosphatase 114 IU/L (40-130) 03/30/22 22:10 Total Protein 6.9 g/dL (6.6-8.7) 03/30/22 22:10 Albumin 4.4 g/dL (3.5-5.2) 03/30/22 22:10 Globulin 2.5 g/dL (1.3-4.6) 03/30/22 22:10 Lipase 54 U/L (13-60) 03/30/22 22:10 Blood Type A Positive 03/30/22 22:10 Rho(D) Type Positive 03/30/22 22:10 Antibody Screen Negative 03/30/22 22:10 Discharge Plan Discharge Patient Disposition: Home Clinical Impression: Abdominal pain Qualifiers: Abdominal location: generalized Qualified Code(s): R10.84 - Generalized abdominal pain Condition: Stable Prescriptions: New hydrocodone-acetaminophen 5-325 mg tablet 1 tab PO Q6H PRN (Reason: pain) Qty: 14 0RF ondansetron 4 mg tablet,disintegrating 4 mg PO Q6H PRN (Reason: nausea and vomiting) Qty: 14 0RF No Action sildenafil 100 mg tablet 100 mg PO DAILY PRN (Reason: sexual activity) Qty: 20 12RF Rx Instructions: 1 hour before intercourse on empty stomach. NO NITROGLYCERIN! hydrocodone-acetaminophen 5-325 mg tablet 1 tab PO Q4H PRN (Reason: pain) 3 Days Qty: 12 0RF Rx Instructions: take 1 PO every 4 hours PRN pain glipizide 10 mg Tablet Extended Release 24hr 10 mg PO BEDTIME 0RF metformin 1,000 mg Tablet 1,000 mg PO BEDTIME 0RF Hold Instructions: Resume on 01/05/22. aspirin 81 mg Tablet,Delayed Release (Dr/Ec) 81 mg PO DAILY Qty: 60 3RF clopidogrel [Plavix] 75 mg tablet 75 mg PO DAILY Qty: 60 3RF atorvastatin 80 mg tablet 80 mg PO DAILY Qty: 60 3RF isosorbide mononitrate 30 mg tablet extended release 24 hr 30 mg PO DAILY Qty: 60 3RF lisinopril 10 mg tablet 10 mg PO DAILY Qty: 60 3RF metoprolol tartrate 25 mg tablet 25 mg PO BID Qty: 60 3RF potassium citrate 15 mEq tablet extended release 15 meq PO DAILY 0RF nitroglycerin 0.4 mg tablet, sublingual 0.4 mg sublingual Q5M PRN (Reason: chest pain) Qty: 30 1RF Rx Instructions: do not exceed 3 doses per episode ferrous sulfate 325 mg (65 mg iron) tablet,delayed release (DR/EC) 325 mg PO BID Qty: 60 3RF ascorbic acid (vitamin C) 250 mg tablet 250 mg PO DAILY Qty: 30 3RF Discharge Orders: Discharge ED (Routine); Ordered 03/31/22 Ordered By: Raza Dacosta Referrals: Tejas Wu DO [Primary Care Provider] - Discharge Diet: Advance as tolerated Discharge Activity: Resume usual activity Patient Instructions: Abdominal Pain (ED), Opioid Safety Coding Level of Care Code ED Brass Pourer for Chg Fwd Exam Comprehensive
[2022-03-30] MEDS: ondansetron 2 mg/ML SDV 2 mL 4 MG IVP (22:08)
[2022-03-30] MEDS: HYDROmorphone 1 mg/mL INJ 1 mL IVP ×2 (22:15→23:20)
[2022-03-30] MEDS: sodium chloride 0.9% 1,000 ML 999 ML IV (22:15)
[2022-03-30 22:26] LABS: Basophils % 0.6 %; Eosinophils # 0.1 10^3/uL (0.0-0.8); Eosinophils % 1.4 %; Hematocrit 37.1 % (42.0-52.0); Lymphocytes # 1.1 10^3/uL (0.8-4.8); Lymphocytes % 15.5 %; Mean Corpuscular HGB Conc 29.6 g/dL (30.0-36.0); Mean Corpuscular Hemoglobin 25.5 pg (28.0-34.0); Mean Corpuscular Volume 86.1 fl (80-94); Mean Platelet Volume 10.3 fL (7.4-10.4); Monocytes # 0.4 10^3/uL (0.2-0.9); Neutrophils # 5.46 10^3/uL (1.8-7.7); Neutrophils % 76.2 %; Nucleated Red Blood Cells % 0 %; Platelet Count 457 10^3/cmm (130-400); Red Blood Count 4.31 10^6/uL (4.1-5.3); Red Cell Distribution Width 17.6 % (12.1-15.1); White Blood Count 7.2 10^3/uL (4.0-10.0)
[2022-03-30 22:47] LABS: Lactate (Lactic Acid level) 2.4 mmol/L (0.5-2.2)
[2022-03-30 22:48] LABS: Alanine Aminotransferase 17 U/L (0-41); Albumin Level 4.4 g/dL (3.5-5.2); Alkaline Phosphatase 114 IU/L (40-130); Anion Gap 18.1 (5-19); Aspartate Amino Transferase 16 U/L (0-40); Blood Urea Nitrogen 22 mg/dL (8-23); Carbon Dioxide 20 mmol/L (22-29); Chloride 101 mmol/L (98-107); Globulin 2.5 g/dL (1.3-4.6); Glomerular Filtration Rate 55.8 mL/min (90-130); Glucose 214 mg/dL (65-115); Lipase 54 U/L (13-60); Osmolality Calculated 290 mOsm/kg (285-295); Potassium 4.1 mmol/L (3.5-5.1); Sodium 135 mmol/L (136-145); Total Bilirubin 0.4 mg/dL (0.15-1.2); Total Protein 6.9 g/dL (6.6-8.7)
[2022-03-30] MEDS: iodixanol 320 mg/mL 100mL Btl IV (23:58)
[2022-03-31] VITALS: BP 125/70; PULSE 100; RESP 20; O2SAT 97
[2022-03-31 00:30] VITALS: BP 118/64; PULSE 97; RESP 18; O2SAT 96
[2022-03-31 01:00] VITALS: BP 139/78; PULSE 99; RESP 18; O2SAT 96
[2022-03-31 01:20] VITALS: BP 148/78; PULSE 96; RESP 18; O2SAT 96
== END 2022-03-31 01:20 | disposition home or self-care (01) ==
PROVIDERS: Emergency Provider Emergency Medicine; PCP Internal Medicine
DX: R10.84 Generalized abdominal pain (principal); Z79.891 Long term (current) use of opiate analgesic; E11.9 Type 2 diabetes mellitus without complications; Z79.84 Long term (current) use of oral hypoglycemic drugs; Z79.82 Long term (current) use of aspirin
CPT/HCPCS: 74177; 80053; 83605; 83690; 85025; 86850; 86900; 96361; 96374; 96375; 96376; 99284; J1170; J2405; J7030; Q9967